=== PATIENT | male | born 1960 | race Two or more races ===

== ENCOUNTER 2017-04-04 20:20 | Inpatient (IN) | payer OTHER ==
[~2017-04-04] VITALS: Ht 167.6 cm; Wt 75.3 kg
[2017-04-04] MEDS ORDERED: MORPHINE SULFATE INJ 4 MG/ML DISP.SYRIN ONE (20:39)
[2017-04-04] MEDS ORDERED: ONDANSETRON HCL/PF 4 MG/2 ML VIAL ONE (20:39)
[2017-04-04] MEDS ORDERED: CLONIDINE HCL 0.1 MG TABLET ONE (20:39)
[2017-04-04 20:57] LABS: CALCIUM, SERUM 6.2 mg/dL (8.5-10.1); CREATININE 1.6 mg/dL (0.6-1.3); POTASSIUM 4.3 mmol/L (3.5-5.1)
[2017-04-04] MEDS ORDERED: CLONIDINE HCL 0.1 MG TABLET PO ONE (21:00)
[2017-04-04] MEDS ORDERED: MORPHINE SULFATE INJ 2 MG/ML DISP.SYRIN IV ONE (21:00)
[2017-04-04] MEDS ORDERED: ONDANSETRON HCL/PF 4 MG/2 ML VIAL IVP ONE (21:00)
[2017-04-04 21:02] LABS: HEMATOCRIT 41 % (39-51); HEMOGLOBIN 12.7 g/dL (13.5-17.5); INR 0.96 (0.87-1.13); MEAN CORPUSCULAR HEMOGLOBIN 25 PG (26.0-33.0); MEAN CORPUSCULAR HGB CONC 31 g/dl (31.0-36.0); MEAN CORPUSCULAR VOLUME 79 fL (80-96); PLATELET COUNT (AUTO) 384 /CMM (150-450); RDW COEFFICIENT OF VARIATION 13.7 (11.5-15.0); RED BLOOD CELL COUNT(AUTO) 5.15 MIL/uL (4.5-6.0); WHITE BLOOD COUNT (AUTO) 7.9 K/uL (4.3-11.0)
[2017-04-04 21:06] LABS: TROPONIN I 0.017 ng/mL (0.00-0.056)
[2017-04-04 21:25] LABS: BAND % (MANUAL) 2 % (0.0-5.0); EOSINOPHILS % (MANUAL) 5 % (0-4); LYMPHOCYTES % (MANUAL) 27 % (16-48); MONOCYTES % (MANUAL) 5 % (0-11.0); NEUTROPHILS % (MANUAL) 61 (42-76)
[2017-04-04] MEDS ORDERED: METOCLOPRAMIDE HCL 10 MG/2 ML VIAL ONE (21:46)
[2017-04-04] MEDS ORDERED: hydrALAZINE HCL IV 20 MG VIAL ONE (21:46)
[2017-04-04] MEDS ORDERED: IV NS 0.9% 1,000 ML ONE (21:47)
[2017-04-04] MEDS ORDERED: diphenhydrAMINE HCL 50 MG/ML VIAL ONE (21:47)
[2017-04-04] MEDS ORDERED: ASPIRIN 325 MG TABLET ONE (21:53)
[2017-04-04] MEDS ORDERED: diphenhydrAMINE HCL 50 MG/ML VIAL IV ONE (22:00)
[2017-04-04] MEDS ORDERED: METOCLOPRAMIDE HCL 10 MG/2 ML VIAL IV ONE (22:00)
[2017-04-04] MEDS ORDERED: IV NS 0.9% 1,000 ML BAG IV ONE (22:00)
[2017-04-04] MEDS ORDERED: ASPIRIN 325 MG TABLET PO ONE (22:00)
[2017-04-04] MEDS ORDERED: hydrALAZINE HCL IV 20 MG VIAL IV ONE (22:00)
[2017-04-04] MEDS ORDERED: INSU100I4 SQ (22:39)
[2017-04-04] MEDS ORDERED: ESOM20CA PO (22:39)
[2017-04-04 22:45] VITALS: BP 164/95
[2017-04-04] MEDS ORDERED: IV SET PRIMARY PUMP SET 1 EA INFUS.SET MC ONE (22:53)
[2017-04-05] VITALS (7 sets, daily range): BP systolic 145–189; BP diastolic 70–108
[2017-04-05] MEDS ORDERED: IV NS 0.9% 1,000 ML IV PRN
[2017-04-05] MEDS ORDERED: Z GUARD REMEDY 2 OZ OINT TP PRN
[2017-04-05] MEDS ORDERED: ZOLPIDEM TARTRATE 5 MG TABLET PO PRN
[2017-04-05] MEDS ORDERED: ONDANSETRON HCL/PF 4 MG/2 ML VIAL IVP PRN
[2017-04-05] MEDS ORDERED: *INSULIN REGULAR(HUMULIN R)HUM 100 UNIT/ML VIAL SQ PRN
[2017-04-05] MEDS ORDERED: MAG HYDROX/AL HYDROX/SIMETH 30 ML UDC PO PRN
[2017-04-05] MEDS ORDERED: ACETAMINOPHEN 325 MG TABLET PO PRN
[2017-04-05] MEDS ORDERED: MAGNESIUM HYDROXIDE 30 ML UDC PO PRN
[2017-04-05] MEDS ORDERED: HYDROCODONE/APAP 5/325MG 1 EACH TABLET ONE (00:27)
[2017-04-05 00:31] LABS: CALCIUM, SERUM 7.9 mg/dL (8.5-10.1); CREATININE 2.1 mg/dL (0.6-1.3); POTASSIUM 4.5 mmol/L (3.5-5.1)
[2017-04-05] MEDS: HYDROCODONE/APAP 5/325MG 1 EACH TABLET PO PRN (00:35)
[2017-04-05 00:36] LABS: ALBUMIN 1.8 g/dL (3.4-5.0); BILIRUBIN,TOTAL 0.2 mg/dL (0.2-1.0)
[2017-04-05 00:37] LABS: THYROID STIMULATING HORMONE 8.408 uIU/mL (0.358-3.74)
[2017-04-05] MEDS: INSULIN REGULAR, HUMAN 100 UNIT/ML 3 ML VIAL SQ PRN ×2 (06:29→11:08)
[2017-04-05] MEDS: BLOOD SUGAR DIAGNOSTIC 1 EACH STRIP VI SCH ×5 (06:30→22:01)
[2017-04-05 06:43] LABS: APPEARANCE,URINE CLEAR (CLEAR); BILIRUBIN,URINE NEGATIVE (NEGATIVE); BLOOD, URINE 1+ Ery/uL (NEGATIVE); COLOR,URINE YELLOW (YELLOW); KETONES,URINE NEGATIVE (NEGATIVE); LEUKOCYTE ESTERASE ,URINE NEGATIVE (NEGATIVE); NITRITE, URINE NEGATIVE (NEGATIVE); PROTEIN,URINE 3+ mg/dl (NEGATIVE); UGLUCOSE 3+ mg/dL (NEGATIVE); UROBILINOGEN,URINE 0.2 EU/dL (0.2)
[2017-04-05 06:45] LABS: BASOPHILS # (AUTO) 0.1 /CMM (0.0-0.2); BASOPHILS % (AUTO) 0.5 % (0.0-2.0); EOSINOPHILS # (AUTO) 0.5 /CMM (0.0-0.7); EOSINOPHILS % (AUTO) 5.2 % (0.0-6.0); HEMATOCRIT 38 % (39-51); HEMOGLOBIN 12.4 g/dL (13.5-17.5); LYMPHOCYTES # (AUTO) 1.7 /CMM (0.8-4.8); LYMPHOCYTES % (AUTO) 16.6 % (20.0-44.0); MEAN CORPUSCULAR HEMOGLOBIN 26 PG (26.0-33.0); MEAN CORPUSCULAR HGB CONC 33 g/dl (31.0-36.0); MEAN CORPUSCULAR VOLUME 79 fL (80-96); MONOCYTES # (AUTO) 0.8 /CMM (0.1-1.30); MONOCYTES % (AUTO) 7.6 % (2.0-12.0); NEUTROPHILS # (AUTO) 7.2 /CMM (1.8-8.9); NEUTROPHILS % (AUTO) 70.1 % (43.0-81.0); PLATELET COUNT (AUTO) 353 /CMM (150-450); RDW COEFFICIENT OF VARIATION 14.2 (11.5-15.0); RED BLOOD CELL COUNT(AUTO) 4.73 MIL/uL (4.5-6.0); WHITE BLOOD COUNT (AUTO) 10.3 K/uL (4.3-11.0)
[2017-04-05 06:55] LABS: CALCIUM, SERUM 7.8 mg/dL (8.5-10.1); CREATININE 2.2 mg/dL (0.6-1.3); MAGNESIUM 1.3 mg/dL (1.8-2.4); POTASSIUM 4.5 mmol/L (3.5-5.1)
[2017-04-05 07:25] LABS: CLINITEST,URINE 1%
[2017-04-05 07:26] LABS: BACTERIA,URINE None seen /HPF (None Seen); SQUAMOUS EPITHELIAL CELL,UR Few /HPF (None Seen); WBC,URINE 0-2 /HPF (0-3)
[2017-04-05] MEDS: PANTOPRAZOLE 40 MG TABLET.DR PO SCH (08:42)
[2017-04-05] MEDS: ASPIRIN EC 325 MG TABLET.DR PO SCH (08:42)
[2017-04-05] MEDS: HEPARIN SODIUM, PORCINE 5000 UNITS/1 ML VIAL SQ SCH ×2 (08:43→20:29)
[2017-04-05] MEDS: Magnesium 1GM/D5W 100ML PREMIX 100 ML IV SCH ×2 (10:38→12:21)
[2017-04-05] MEDS ORDERED: CLONIDINE HCL 0.1 MG TABLET PO PRN (11:30)
[2017-04-05] MEDS ORDERED: DEXTROSE 50%-WATER 50 ML DISP.SYRIN IV PRN ×2 (12:00)
[2017-04-05] MEDS: AMLODIPINE BESYLATE 10 MG TABLET PO SCH (12:22)
[2017-04-05] MEDS: *INSULIN REGULAR(HUMULIN R)HUM 100 UNIT/ML VIAL SQ PRN ×2 (17:54→21:53)
[2017-04-05] MEDS: ATORVASTATIN 40 MG TABLET PO SCH (21:51)
[2017-04-05] MEDS: INSULIN DETEMIR 100 UNIT/ML CARTRIDGE SQ SCH (21:55)
[2017-04-05] MEDS ORDERED: ATORVASTATIN 10 MG TABLET PO SCH (22:00)
[2017-04-06] VITALS: BP 168/95
[2017-04-06 04:00] VITALS: BP 128/69
[2017-04-06] MEDS: BLOOD SUGAR DIAGNOSTIC 1 EACH STRIP VI SCH ×4 (06:32→22:19)
[2017-04-06 08:00] VITALS: BP 159/89
[2017-04-06] MEDS: AMLODIPINE BESYLATE 10 MG TABLET PO SCH (09:17)
[2017-04-06] MEDS: PANTOPRAZOLE 40 MG TABLET.DR PO SCH (09:17)
[2017-04-06] MEDS: HYDROCODONE/APAP 5/325MG 1 EACH TABLET PO PRN (09:17)
[2017-04-06] MEDS: ASPIRIN EC 325 MG TABLET.DR PO SCH (09:18)
[2017-04-06] MEDS: HEPARIN SODIUM, PORCINE 5000 UNITS/1 ML VIAL SQ SCH ×2 (09:19→21:12)
[2017-04-06] MEDS ORDERED: LEVETIRACETAM (500MG) 1,000 MG in IV NS 0.9% 100 ML IV STA (09:22)
[2017-04-06] MEDS ORDERED: SECONDARY IV SET 1 EA INFUS.SET MC ONE (10:14)
[2017-04-06 10:54] LABS: BASOPHILS # (AUTO) 0.1 /CMM (0.0-0.2); BASOPHILS % (AUTO) 0.9 % (0.0-2.0); EOSINOPHILS # (AUTO) 0.4 /CMM (0.0-0.7); EOSINOPHILS % (AUTO) 5.2 % (0.0-6.0); HEMATOCRIT 40 % (39-51); HEMOGLOBIN 13.3 g/dL (13.5-17.5); LYMPHOCYTES # (AUTO) 1.6 /CMM (0.8-4.8); LYMPHOCYTES % (AUTO) 18.5 % (20.0-44.0); MEAN CORPUSCULAR HEMOGLOBIN 26 PG (26.0-33.0); MEAN CORPUSCULAR HGB CONC 33 g/dl (31.0-36.0); MEAN CORPUSCULAR VOLUME 79 fL (80-96); MONOCYTES # (AUTO) 0.6 /CMM (0.1-1.30); MONOCYTES % (AUTO) 6.6 % (2.0-12.0); NEUTROPHILS # (AUTO) 5.9 /CMM (1.8-8.9); NEUTROPHILS % (AUTO) 68.8 % (43.0-81.0); PLATELET COUNT (AUTO) 372 /CMM (150-450); RDW COEFFICIENT OF VARIATION 14.4 (11.5-15.0); RED BLOOD CELL COUNT(AUTO) 5.06 MIL/uL (4.5-6.0); WHITE BLOOD COUNT (AUTO) 8.6 K/uL (4.3-11.0)
[2017-04-06] MEDS: LEVETIRACETAM (250 MG) 250 MG TABLET PO SCH ×2 (11:00→21:11)
[2017-04-06 11:01] LABS: CALCIUM, SERUM 8.2 mg/dL (8.5-10.1); CREATININE 2.1 mg/dL (0.6-1.3); POTASSIUM 4.2 mmol/L (3.5-5.1)
[2017-04-06 12:00] VITALS: BP 145/91
[2017-04-06] MEDS: METOPROLOL TARTRATE 25 MG TABLET PO SCH ×2 (12:14→21:11)
[2017-04-06] MEDS: INSULIN REGULAR, HUMAN 100 UNIT/ML 3 ML VIAL SQ PRN ×2 (12:20→17:52)
[2017-04-06 16:00] VITALS: BP 130/82
[2017-04-06 20:00] VITALS: BP 152/86
[2017-04-06] MEDS: ATORVASTATIN 40 MG TABLET PO SCH (21:12)
[2017-04-06] MEDS: INSULIN DETEMIR 100 UNIT/ML CARTRIDGE SQ SCH (22:15)
[2017-04-06] MEDS: *INSULIN REGULAR(HUMULIN R)HUM 100 UNIT/ML VIAL SQ PRN (22:16)
[2017-04-07] VITALS: BP 139/77
[2017-04-07 04:00] VITALS: BP 138/83
[2017-04-07] MEDS: BLOOD SUGAR DIAGNOSTIC 1 EACH STRIP VI SCH (06:22)
[2017-04-07 07:28] LABS: BASOPHILS # (AUTO) 0.1 /CMM (0.0-0.2); BASOPHILS % (AUTO) 0.6 % (0.0-2.0); EOSINOPHILS # (AUTO) 0.5 /CMM (0.0-0.7); EOSINOPHILS % (AUTO) 5.8 % (0.0-6.0); HEMATOCRIT 41 % (39-51); HEMOGLOBIN 13.8 g/dL (13.5-17.5); LYMPHOCYTES # (AUTO) 2.1 /CMM (0.8-4.8); LYMPHOCYTES % (AUTO) 24.2 % (20.0-44.0); MEAN CORPUSCULAR HEMOGLOBIN 27 PG (26.0-33.0); MEAN CORPUSCULAR HGB CONC 34 g/dl (31.0-36.0); MEAN CORPUSCULAR VOLUME 79 fL (80-96); MONOCYTES # (AUTO) 0.6 /CMM (0.1-1.30); MONOCYTES % (AUTO) 6.8 % (2.0-12.0); NEUTROPHILS # (AUTO) 5.4 /CMM (1.8-8.9); NEUTROPHILS % (AUTO) 62.6 % (43.0-81.0); PLATELET COUNT (AUTO) 413 /CMM (150-450); RDW COEFFICIENT OF VARIATION 14.5 (11.5-15.0); RED BLOOD CELL COUNT(AUTO) 5.19 MIL/uL (4.5-6.0); WHITE BLOOD COUNT (AUTO) 8.7 K/uL (4.3-11.0)
[2017-04-07 07:46] LABS: CALCIUM, SERUM 8.3 mg/dL (8.5-10.1); POTASSIUM 4.1 mmol/L (3.5-5.1)
[2017-04-07 08:00] VITALS: BP 119/80
[2017-04-07] MEDS: LEVETIRACETAM (250 MG) 250 MG TABLET PO SCH (08:01)
[2017-04-07] MEDS: ASPIRIN EC 325 MG TABLET.DR PO SCH (08:01)
[2017-04-07] MEDS: PANTOPRAZOLE 40 MG TABLET.DR PO SCH (08:01)
[2017-04-07] MEDS: AMLODIPINE BESYLATE 10 MG TABLET PO SCH (08:01)
[2017-04-07 08:02] VITALS: BP 119/80
[2017-04-07] MEDS: METOPROLOL TARTRATE 25 MG TABLET PO SCH (08:02)
[2017-04-07] MEDS: HEPARIN SODIUM, PORCINE 5000 UNITS/1 ML VIAL SQ SCH (08:10)
== END 2017-04-07 10:53 | disposition home or self-care (01) | DRG 64 ==
LOC: ER 20:23 → TELE1 22:40
PROVIDERS: ADMIT Nurse Practitioner Acute Care; ATTEND Nurse Practitioner Acute Care
DX: I63.9 Cerebral infarction, unspecified (principal); N17.0 Acute kidney failure with tubular necrosis; I50.33 Acute on chronic diastolic (congestive) heart failure; G45.9 Transient cerebral ischemic attack, unspecified; I13.0 Hypertensive heart and chronic kidney disease with heart failure and stage 1 through stage 4 chronic kidney disease, or unspecified chronic kidney disease; N18.9 Chronic kidney disease, unspecified; E11.22 Type 2 diabetes mellitus with diabetic chronic kidney disease; E11.65 Type 2 diabetes mellitus with hyperglycemia; E78.5 Hyperlipidemia, unspecified; I25.10 Atherosclerotic heart disease of native coronary artery without angina pectoris; Z91.14 Patient's other noncompliance with medication regimen; Z98.61 Coronary angioplasty status; R56.9 Unspecified convulsions; I51.3 Intracardiac thrombosis, not elsewhere classified; R47.02 Dysphasia; Z79.4 Long term (current) use of insulin
CPT/HCPCS: 36415; 70450-TC; 71010-TC; 80048-TC; 80053-TC; 80061-TC; 80305; 81000-TC; 82962-TC; 83735-TC; 83880; 84100-TC; 84443-TC; 84484-TC; 85025-TC; 85652-TC; 85730-TC; 92507-TC; 92521; 93307-TC; 93880-TC; 95819-TC; 97001-TC; 97116-TC; 97530-TC; A4606; J0360; J1200; J1644; J1815; J1953; J2270; J2405; J2765; J3475; J7030; Z7610

== ENCOUNTER 2017-07-21 12:19 | Inpatient (IN) | payer SELFPAY ==
[~2017-07-21] VITALS: Ht 172.7 cm; Wt 61.7 kg
[~2017-07-21 12:19] MED LIST: ESOM20CA PO; INSU100I4 SQ
--- NOTE | 2017-07-21 12:25 | NUR ---
Ariel shoemaker in EDM - 07/21/17 at 1242 by GIGI PT REC'D TO ER C/O FALL LEFT SHOULDER PAIN 08/21 IV STARTED 20G IVP LABS SENT TO LAB MONSE GUIDRY AND MS 4MG IVP NOW MARIANA MADRIGAL
[2017-07-21] MEDS ORDERED: IV NS 0.9% 1,000 ML BAG IV ONE (12:30)
--- NOTE | 2017-07-21 12:37 | NUR ---
CODE STEMI ACTIVATED BY DR. DE LA O
--- NOTE | 2017-07-21 12:37 | NUR ---
[facility] CALLED TO INITIATE CODE STEMI TRANSFER
--- NOTE | 2017-07-21 12:38 | NUR ---
PT CEVIAL COLLAR APPLIED CNAT REMEMBER WHAT HAPPENED IV LEFT AC 18G IVP NS GIVEN PER MD NO C/O CHEST PAIN.
[2017-07-21 12:40] LABS: BASOPHILS # (AUTO) 0.3 /CMM (0.0-0.2); BASOPHILS % (AUTO) 3.9 % (0.0-2.0); EOSINOPHILS # (AUTO) 0.1 /CMM (0.0-0.7); EOSINOPHILS % (AUTO) 1.4 % (0.0-6.0); HEMATOCRIT 37 % (39-51); HEMOGLOBIN 12.1 g/dL (13.5-17.5); LYMPHOCYTES # (AUTO) 2.2 /CMM (0.8-4.8); LYMPHOCYTES % (AUTO) 25.2 % (20.0-44.0); MEAN CORPUSCULAR HEMOGLOBIN 26 PG (26.0-33.0); MEAN CORPUSCULAR HGB CONC 32 g/dl (31.0-36.0); MEAN CORPUSCULAR VOLUME 80 fL (80-96); MONOCYTES # (AUTO) 0.5 /CMM (0.1-1.30); MONOCYTES % (AUTO) 6.3 % (2.0-12.0); NEUTROPHILS # (AUTO) 5.6 /CMM (1.8-8.9); NEUTROPHILS % (AUTO) 63.2 % (43.0-81.0); PLATELET COUNT (AUTO) 530 /CMM (150-450); RDW COEFFICIENT OF VARIATION 13.7 (11.5-15.0); RED BLOOD CELL COUNT(AUTO) 4.67 MIL/uL (4.5-6.0); WHITE BLOOD COUNT (AUTO) 8.7 K/uL (4.3-11.0)
--- NOTE | 2017-07-21 12:43 | NUR ---
PT POS FOR STEM BOWIE XRAY DONE AWAITING EVALUATION BY ER PROVIDER.
[2017-07-21 12:48] LABS: CALCIUM, SERUM 8.1 mg/dL (8.5-10.1); CREATININE 2.5 mg/dL (0.6-1.3); POTASSIUM 3.7 mmol/L (3.5-5.1)
[2017-07-21 12:53] LABS: BILIRUBIN,TOTAL 0.2 mg/dL (0.2-1.0)
[2017-07-21 12:55] LABS: TROPONIN I 0.025 ng/mL (0.00-0.056)
--- NOTE | 2017-07-21 12:55 | NUR ---
PT SENT TO CT WITH RN
--- NOTE | 2017-07-21 12:56 | NUR ---
PT DECLINED FOR CATH BY DR. DAMON, DOES NOT REQUIRE EMERGENT TRANSFER FOR CATH AT THIS TIME
--- NOTE | 2017-07-21 12:56 | NUR ---
CALLED [facility], DR DAMON WAS PAGED.
[2017-07-21 12:57] LABS: INR 0.95 (0.87-1.13); PROTHROMBIN TIME 9.9 SECS (9.5-12.7)
[2017-07-21] MEDS ORDERED: ASPIRIN 325 MG TABLET ONE (12:59)
[2017-07-21] MEDS ORDERED: ASPIRIN 325 MG TABLET PO ONE (13:00)
--- NOTE | 2017-07-21 13:10 | NUR ---
PT BACK TO ROOM FAMMILY AT BEDSIDE PT DENIES PAIN ASA 325 MG PO GIVEN NOW
[2017-07-21] MEDS ORDERED: LOSA50TA21 PO (13:25)
[2017-07-21] MEDS ORDERED: ASPI325T2 PO (13:25)
[2017-07-21] MEDS ORDERED: LEVE250T2 PO (13:25)
[2017-07-21] MEDS ORDERED: INSU3INS6 SQ (13:25)
[2017-07-21] MEDS ORDERED: LEVETIRACETAM (500MG) 1,000 MG in IV NS 0.9% 100 ML IV ONE (13:30)
--- NOTE | 2017-07-21 14:44 | NUR ---
PT SLEEEPING RESP EVEN UNLABORED AWAITING EVALUATION BY ER PROVIDER.
--- NOTE | 2017-07-21 14:57 | NUR ---
PT GIVEN KEPPA IV PER MD ORDER VSS
[2017-07-21] MEDS ORDERED: ACETAMINOPHEN 325 MG TABLET PO PRN (15:00)
[2017-07-21] MEDS ORDERED: MAGNESIUM HYDROXIDE 30 ML UDC PO PRN (15:00)
[2017-07-21] MEDS ORDERED: MAG HYDROX/AL HYDROX/SIMETH 30 ML UDC PO PRN (15:00)
[2017-07-21] MEDS ORDERED: HYDROCODONE/APAP 5/325MG 1 EACH TABLET PO PRN (15:00)
[2017-07-21] MEDS ORDERED: ONDANSETRON HCL/PF 4 MG/2 ML VIAL IVP PRN (15:00)
[2017-07-21] MEDS ORDERED: Z GUARD REMEDY 2 OZ OINT TP PRN (15:00)
[2017-07-21] MEDS ORDERED: DEXTROSE 50%-WATER 50 ML DISP.SYRIN IV PRN (15:00)
[2017-07-21] MEDS ORDERED: ZOLPIDEM TARTRATE 5 MG TABLET PO PRN (15:00)
[2017-07-21] MEDS ORDERED: ENOXAPARIN SODIUM 30 MG/0.3 ML DISP.SYRIN SQ SCH (15:30)
--- NOTE | 2017-07-21 15:36 | NUR ---
PT STABLE FOR TRANSFER
--- NOTE | 2017-07-21 15:53 | NUR ---
MANAGER RESORT OPENING NOTES RECEIVED PT FROM ER NURSE IN STABLE CONDITION. PT IS A/O X3. FLAT AFFECT NOTED. NO SOB OR SIGNS OF DISTRESS NOTED. BREATHING IS EVEN AND UNLABORED. PT IS ON RA AND SATING WELL @ 100%. VITAL SIGNS WNL AND ARE FOLLOWED: BP 117/79, HR 74, RESP 18. TEMP 98.4. PT IS SINUS RHYTHM ON THE TELE MONITOR. PT DENIES ANY PAIN, DIZZINESS, OR N/V AT THIS TIME. IV PRESENT ON LEFT AC 18G INFUSING NS @75ML/HR. PT IS TOLERATING INFUSION. WELL. IV IS DRY, PATENT, AND INTACT. NO REDNESS OR SIGNS OF INFILTRATION NOTED. PT STATED THAT HE HAD A FALL AT HOME BUT DOES NOT REMEMBER WHAT HAPPENED PRIOR OR AFTER. PT ARRIVED WITH NO BELONGINGS. BELONGINGS FORM SIGNED AND PLACED IN THE CHART. PT WAS ORIENTED TO THE ROOM AND VERBALIZED UNDERSTANDING. BED IN LOW LOCKED POSITION, SIDE RAILS UP X2, CALL LIGHT WITHIN REACH. WILL CONTINUE ADMISSION PROCESS AND MONITOR.
[2017-07-21] MEDS: IV NS 0.9% 1,000 ML IV PRN (16:31)
[2017-07-21] MEDS: BLOOD SUGAR DIAGNOSTIC 1 EACH STRIP VI SCH ×2 (16:38→21:57)
[2017-07-21] MEDS: ATORVASTATIN 40 MG TABLET PO SCH (17:42)
[2017-07-21] MEDS: INSULIN REGULAR, HUMAN 100 UNIT/ML 3 ML VIAL SQ PRN (17:43)
[2017-07-21 17:51] VITALS: BP 117/79
--- NOTE | 2017-07-21 18:29 | NUR ---
CARDIOTHORACIC SURGEON NOTES DR CASTILLO CALLED AND GAVE A TELEPHONE ORDER FOR ELIQUIS 2.5 MG TO BE GIVEN NOW AND ANOTHER DOSE @ MIDNIGHT. WAS MADE AWARE THAT I GAVE LOVENOX 30MG A FEW HRS AGO AND ORDERED THAT I D/C THE LOVENOX AND PROCEED WITH ELIQUIS.
--- NOTE | 2017-07-21 18:43 | NUR ---
SUPERVISOR ORNAMENTAL IRONWORKING NOTES PHARMACY CALLED IN REGARDS TO ELIQUIS ORDER AND STATED THAT THEY CAN NOT VERIFY IT BECAUSE OF THE PT'S KIDNEY FUNCTION. DR. CASTILLO WAS MADE AWARE AND STATED THAT HE WILL CALL THE PHARMACY AND SORT IT OUT.
--- NOTE | 2017-07-21 18:55 | NUR ---
CHILDHOOD TEACHER CLOSING NOTES PT. REMAINS IN STABLE CONDITION SINCE TIME OR ADMISSION. ALL NEEDS WERE MET FOR AND ORDERS CARRIED OUT ACCORDINGLY. WILL ENDORSE TO NIGHTSHIFT NURSE FOR MARGOT
[2017-07-21] MEDS: APIXABAN 2.5 MG TABLET PO SCH (19:01)
--- NOTE | 2017-07-21 19:30 | NUR ---
DAIRY INSPECTOR NOTES RECEIVED ON BED A/O X 3-4,BREATHING REGULAR,NOT IN ANY FORM OF DISTRESS.VISITOR AT SITTING ON BEDSIDE CHAIR .PRESENT IVF INFUSING WELL VIA IV PUMP ON THE RIGHT AC,NO REDNESS ON SITE. DENIES DIZZINESS AT THE MOMENT.SR-71 ON THE MONITOR.DENIES CHEST PAIN.ON ELIQUIS PO FOR DVT PROPHYLAXIS. WILL CONTINUE TO MONITOR STATUS.CALL LIGHT IN REACH,NEEDS ANTICIPATED.
[2017-07-21 20:00] VITALS: BP 140/76
--- NOTE | 2017-07-21 22:00 | NUR ---
SECURITY SERVICES MANAGER NOTES DUE PO MEDS GIVEN,TAKEN WELL
--- NOTE | 2017-07-21 22:00 | NUR ---
CARTOON DESIGNER NOTES ACCU-CHECK BLOOD SUGAR CHECK 242,COVERTED WITH HUMULIN R 4 UNITS PER SLIDING SCALE.
[2017-07-21] MEDS: *INSULIN REGULAR(HUMULIN R)HUM 100 UNIT/ML VIAL SQ PRN (22:02)
[2017-07-21] MEDS: LOSARTAN POTASSIUM 50 MG TABLET PO SCH (22:06)
[2017-07-21] MEDS: LEVETIRACETAM (250 MG) 250 MG TABLET PO SCH (22:06)
[2017-07-22] VITALS: BP_SYST 134; BP_SYST 138; BP_DIAS 74
--- NOTE | 2017-07-22 02:30 | NUR ---
EXECUTIVE ADMINISTRATOR NOTES AWAKE,WATCHING TV PROGRAM.DENIES CHEST DISCOMFORTS.
[2017-07-22 04:30] VITALS: BP 161/87
[2017-07-22] MEDS: BLOOD SUGAR DIAGNOSTIC 1 EACH STRIP VI SCH ×4 (05:30→23:21)
--- NOTE | 2017-07-22 05:30 | NUR ---
HUNTER GUIDE NOTES ACCU-CHECK BLOOD SUGAR CHECK 108,NO INSULIN COVERAGE.
[2017-07-22] MEDS: IV NS 0.9% 1,000 ML IV PRN (05:38)
[2017-07-22 06:27] LABS: BASOPHILS % (AUTO) 0.6 % (0.0-2.0); EOSINOPHILS # (AUTO) 0.2 /CMM (0.0-0.7); EOSINOPHILS % (AUTO) 2.1 % (0.0-6.0); HEMATOCRIT 33 % (39-51); HEMOGLOBIN 10.8 g/dL (13.5-17.5); LYMPHOCYTES % (AUTO) 27.3 % (20.0-44.0); MEAN CORPUSCULAR HEMOGLOBIN 27 PG (26.0-33.0); MEAN CORPUSCULAR HGB CONC 33 g/dl (31.0-36.0); MEAN CORPUSCULAR VOLUME 82 fL (80-96); MONOCYTES # (AUTO) 0.5 /CMM (0.1-1.30); MONOCYTES % (AUTO) 7.2 % (2.0-12.0); NEUTROPHILS # (AUTO) 4.5 /CMM (1.8-8.9); NEUTROPHILS % (AUTO) 62.8 % (43.0-81.0); PLATELET COUNT (AUTO) 388 /CMM (150-450); RDW COEFFICIENT OF VARIATION 14.7 (11.5-15.0); RED BLOOD CELL COUNT(AUTO) 3.98 MIL/uL (4.5-6.0); WHITE BLOOD COUNT (AUTO) 7.2 K/uL (4.3-11.0)
--- NOTE | 2017-07-22 06:43 | NUR ---
FUR SEWER NOTES FAIRLY RESTED AT NIGHT.DENIES CHEST PAIN DISCOMFORTS.MED COMPLIANT.IVF FLUID IN PROGRESS.ABLE TO VERBALIZED NEEDS.IN NO ACUTE DISTRESS.ECHO WITH 55-60 %EF.CALL LIGHT IN REACH,NEEDS ATTENDED
[2017-07-22 06:53] LABS: CALCIUM, SERUM 7.5 mg/dL (8.5-10.1); CREATININE 1.9 mg/dL (0.6-1.3); MAGNESIUM 1.6 mg/dL (1.8-2.4); PHOSPHORUS 3.6 mg/dL (2.5-4.9); POTASSIUM 3.5 mmol/L (3.5-5.1)
--- NOTE | 2017-07-22 07:15 | NUR ---
RN NOTES PT IS IN BED, RESTING COMFORTABLY. PT ON RA, NO SOB OR SIGNS OF DISTRESS. IV ON LAC INTACT AND PATENT, RUNNING NS AT 75 ML/HR. SAFETY MEASURES ARE IN PLACE, CALL LIGHT IS IN REACH. WILL CONTINUE TO MONITOR.
[2017-07-22 08:00] VITALS: BP_SYST 142; BP_SYST 162; BP_DIAS 79; BP_DIAS 88
[2017-07-22] MEDS: ASPIRIN 325 MG TABLET PO SCH (08:04)
[2017-07-22] MEDS: APIXABAN 2.5 MG TABLET PO SCH ×2 (08:04→18:12)
[2017-07-22] MEDS: ATORVASTATIN 40 MG TABLET PO SCH (08:04)
[2017-07-22] MEDS: PANTOPRAZOLE 40 MG TABLET.DR PO SCH (08:04)
[2017-07-22] MEDS: Magnesium 1GM/D5W 100ML PREMIX 100 ML IV SCH ×2 (08:04→09:36)
[2017-07-22] MEDS: INSULIN REGULAR, HUMAN 100 UNIT/ML 3 ML VIAL SQ PRN ×2 (11:12→17:15)
[2017-07-22 13:26] LABS: APPEARANCE,URINE CLEAR (CLEAR); BILIRUBIN,URINE NEGATIVE (NEGATIVE); BLOOD, URINE TRACE-INTA Ery/uL (NEGATIVE); COLOR,URINE YELLOW (YELLOW); KETONES,URINE NEGATIVE (NEGATIVE); LEUKOCYTE ESTERASE ,URINE NEGATIVE (NEGATIVE); NITRITE, URINE NEGATIVE (NEGATIVE); PROTEIN,URINE 3+ mg/dl (NEGATIVE); UGLUCOSE 1+ mg/dL (NEGATIVE); UROBILINOGEN,URINE 0.2 EU/dL (0.2)
[2017-07-22 13:35] LABS: BACTERIA,URINE Rare /HPF (None Seen); SQUAMOUS EPITHELIAL CELL,UR Rare /HPF (None Seen); WBC,URINE 0-2 /HPF (0-3)
[2017-07-22 13:51] LABS: EOSINOPHIL,URINE None Seen
[2017-07-22 14:11] LABS: CREATININE, URINE 139.4 MG/DL (30.0-125.0); URINE TOTAL PROTEIN 1067.2 mg/dL (0-11.9)
[2017-07-22 16:00] VITALS: BP 145/84
--- NOTE | 2017-07-22 18:33 | NUR ---
RN NOTES PT IS IN BED, RESTING COMFORTABLY. PT ON RA, O2 SAT 99%, NO SOB. PT DENIES ANY PAIN AT THIS TIME. IV ON LAC INTACT AND PATENT, RUNNING NS @75 ML/HR. LAST ACCUCHECK WAS 156, 2 UNITS OF INSULIN GIVEN. ALL MEDICATIONS WERE GIVEN ORDERED. SAFETY MEASURES ARE IN PLACE, CALL LIGHT IS IN REACH. WILL ENDORSE TO AIRCRAFT MAINTENANCE ENGINEER RN FOR CONTINUITY OF CARE.
--- NOTE | 2017-07-22 19:45 | NUR ---
RN OPENING NOTES RECEIVED REPORT FROM BRY RN, . FOUND Pt AWAKE, RESTING IN BED WATCHING TV. NO S/S OF ACUTE DISTRESS OR SOB NOTED. Pt IS A/OX3, VERBAL, ABLE TO MAKE NEEDS KNOWN. IV ACCESS ON LAC#18G, IVF NS @75ML/HR INFUSING WELL. SAFETY MEASURES IN PLACE. BED LOW, LOCKED, HOB ELEVATED, SIDE RAILS UP, CALL LIGHT AND BEDSIDE TABLE WITHIN REACH. WILL CONTINUE TO MONITOR Pt THROUGHOUT THE NIGHT FOR SAFETY. .
[2017-07-22 20:00] VITALS: BP 165/59
[2017-07-22 22:00] VITALS: BP 165/59
--- NOTE | 2017-07-22 22:00 | NUR ---
HS ACCUCHECK BG 147. ADMINISTERED 2UN OF INSULIN PER SLIDING SCALE.
[2017-07-22] MEDS: LOSARTAN POTASSIUM 50 MG TABLET PO SCH (23:21)
[2017-07-22] MEDS: LEVETIRACETAM (250 MG) 250 MG TABLET PO SCH (23:21)
[2017-07-22] MEDS: *INSULIN REGULAR(HUMULIN R)HUM 100 UNIT/ML VIAL SQ PRN (23:27)
--- NOTE | 2017-07-23 06:30 | NUR ---
AC ACCUCHECK BG 128. NO INSULIN COVERAGE NEEDED AT THIS TIME.
[2017-07-23 06:37] LABS: BASOPHILS % (AUTO) 0.5 % (0.0-2.0); EOSINOPHILS # (AUTO) 0.3 /CMM (0.0-0.7); EOSINOPHILS % (AUTO) 3.5 % (0.0-6.0); HEMATOCRIT 33 % (39-51); HEMOGLOBIN 11.1 g/dL (13.5-17.5); LYMPHOCYTES # (AUTO) 1.8 /CMM (0.8-4.8); LYMPHOCYTES % (AUTO) 22.9 % (20.0-44.0); MEAN CORPUSCULAR HEMOGLOBIN 28 PG (26.0-33.0); MEAN CORPUSCULAR HGB CONC 34 g/dl (31.0-36.0); MEAN CORPUSCULAR VOLUME 82 fL (80-96); MONOCYTES # (AUTO) 0.5 /CMM (0.1-1.30); MONOCYTES % (AUTO) 5.9 % (2.0-12.0); NEUTROPHILS # (AUTO) 5.3 /CMM (1.8-8.9); NEUTROPHILS % (AUTO) 67.2 % (43.0-81.0); PLATELET COUNT (AUTO) 348 /CMM (150-450); RDW COEFFICIENT OF VARIATION 14.5 (11.5-15.0); WHITE BLOOD COUNT (AUTO) 7.9 K/uL (4.3-11.0)
--- NOTE | 2017-07-23 06:50 | NUR ---
RN CLOSING NOTES NO SIGNIFICANT CHANGES IN Pt's CONDITION. Pt REMAINS STABLE. NO S/S OF ACUTE DISTRESS OR SOB NOTED DURING THE NIGHT. ALL NEEDS MET AND ATTENDED TO. SAFETY MEASURES IN PLACE. WILL ENDORSE TO DAYSHIFT RN FOR Pt's MARGOT.
[2017-07-23 07:00] LABS: ALBUMIN 1.7 g/dL (3.4-5.0); BILIRUBIN,TOTAL 0.3 mg/dL (0.2-1.0); CALCIUM, SERUM 7.8 mg/dL (8.5-10.1); CREATININE 1.7 mg/dL (0.6-1.3); PHOSPHORUS 2.9 mg/dL (2.5-4.9); POTASSIUM 4.2 mmol/L (3.5-5.1); TOTAL PROTEIN, SERUM 5.3 g/dL (6.4-8.2)
[2017-07-23] MEDS: BLOOD SUGAR DIAGNOSTIC 1 EACH STRIP VI SCH ×2 (07:13→12:02)
--- NOTE | 2017-07-23 07:35 | NUR ---
RN OPENING NOTES RECEIVED PT. IN BED AWAKE, A&OX2. BREATHING ON ROOM AIR UNLABORED, AND NO SOB. NO S/S OF ACUTE DISTRESS. IV FLUIDS NEAR BEDSIDE. BED IS IN LOW POSITION, 2 SIDE RAILS UP, AND INSTRUCTED PT. TO USE CALL LIGHT FOR ASSISTANCE.
[2017-07-23 08:00] VITALS: BP 136/76
[2017-07-23] MEDS: ASPIRIN 325 MG TABLET PO SCH (09:08)
[2017-07-23] MEDS: APIXABAN 2.5 MG TABLET PO SCH (09:08)
[2017-07-23] MEDS: PANTOPRAZOLE 40 MG TABLET.DR PO SCH (09:08)
[2017-07-23] MEDS: ATORVASTATIN 40 MG TABLET PO SCH (09:08)
[2017-07-23] MEDS: IV NS 0.9% 1,000 ML IV PRN (09:09)
[2017-07-23] MEDS ORDERED: LEVETIRACETAM (250 MG) 250 MG TABLET PO SCH (10:00)
[2017-07-23] MEDS ORDERED: LEVE250T2 PO (10:06)
[2017-07-23] MEDS ORDERED: APIX2.5T PO (10:06)
[2017-07-23] MEDS: INSULIN REGULAR, HUMAN 100 UNIT/ML 3 ML VIAL SQ PRN (12:12)
--- NOTE | 2017-07-23 13:45 | NUR ---
DISCHARGE PT. WAS DISCHARGED HOME. PT. LEFT WITH IN MEDICALLY STABLE CONDITION. DISCHARGE EDUCATION, AND INTRUCTIONS WERE PROVIDED. PT. VERBALIZED UNDERSTANDING OF DISCHARGE INSTRUCTIONS, AND SIGNED PAPERS. BELONGINGS LIST WAS CHECKED AND SIGNED BY PT. IV AND ID BAND WAS [id number] WITHOUT COMPLICATIONS.
== END 2017-07-23 13:30 | disposition home or self-care (01) | DRG 100 ==
LOC: ER 12:20 → TELE 14:56 → MED 07-22 10:07
PROVIDERS: ADMIT Internal Medicine; ATTEND Internal Medicine
DX: G40.909 Epilepsy, unspecified, not intractable, without status epilepticus (principal); N17.0 Acute kidney failure with tubular necrosis; I50.33 Acute on chronic diastolic (congestive) heart failure; K31.84 Gastroparesis; E11.22 Type 2 diabetes mellitus with diabetic chronic kidney disease; E88.81 Metabolic syndrome and other insulin resistance; E11.43 Type 2 diabetes mellitus with diabetic autonomic (poly)neuropathy; I13.0 Hypertensive heart and chronic kidney disease with heart failure and stage 1 through stage 4 chronic kidney disease, or unspecified chronic kidney disease; N39.0 Urinary tract infection, site not specified; W18.2XXA Fall in (into) shower or empty bathtub, initial encounter; E83.42 Hypomagnesemia; Z86.73 Personal history of transient ischemic attack (TIA), and cerebral infarction without residual deficits; Z79.899 Other long term (current) drug therapy; Z79.82 Long term (current) use of aspirin; Z79.01 Long term (current) use of anticoagulants; Z87.440 Personal history of urinary (tract) infections; Z95.5 Presence of coronary angioplasty implant and graft; Z91.19 Patient's noncompliance with other medical treatment and regimen; Z79.4 Long term (current) use of insulin; I73.9 Peripheral vascular disease, unspecified; E78.5 Hyperlipidemia, unspecified; E83.51 Hypocalcemia; I48.0 Paroxysmal atrial fibrillation; I25.10 Atherosclerotic heart disease of native coronary artery without angina pectoris; N18.9 Chronic kidney disease, unspecified; R47.02 Dysphasia; Y93.E1 Activity, personal bathing and showering; Y92.002 Bathroom of unspecified non-institutional (private) residence as the place of occurrence of the external cause; Z89.431 Acquired absence of right foot
CPT/HCPCS: 36415; 70450-TC; 71010-TC; 80048-TC; 80053-TC; 80076-TC; 81000-TC; 82570-TC; 82962-TC; 83735-TC; 84100-TC; 84155-TC; 84300-TC; 84484-TC; 85025-TC; 85652-TC; 85730-TC; 87081-TC; 93307-TC; A4606; J1650; J1815; J1953; J3475; J7030; Z7610

== ENCOUNTER 2017-09-19 07:42 | Inpatient (IN) | payer MEDICAID ==
[~2017-09-19] VITALS: Ht 170.2 cm; Wt 61.2 kg
[~2017-09-19 07:42] MED LIST changes: +APIX2.5T PO; +ASPI325T2 PO; -ESOM20CA PO; +INSU3INS6 SQ; +LEVE250T2 PO; +LOSA50TA21 PO
--- NOTE | 2017-09-19 07:49 | NUR ---
BBRA 78 ALOC. AWAKE. NON VERBAL. FOLLOWS SOME BASIC COMMANDS. MOVES ALL EXT WEAK. LH 20G PIV PLACED. HYPERGLYCEMIC 400'S. SLIGHTLY JAUNDICED SCATTERED BRUISING PETECHIA? SBP 160'S. 98% O2 SATS RA. NON LABORED RESP. NO S/S PAIN. RESTING CALMLY.
[2017-09-19] MEDS ORDERED: FAMOTIDINE/PF INJ 20 MG/2 ML VIAL IV ONE ×2 (08:00→08:06)
[2017-09-19] MEDS ORDERED: ONDANSETRON HCL/PF 4 MG/2 ML VIAL IVP ONE (08:00)
[2017-09-19] MEDS ORDERED: INSULIN REGULAR, HUMAN 100 UNIT/ML 10 ML VIAL IV ONE (08:00)
[2017-09-19] MEDS ORDERED: IV NS 0.9% 1,000 ML BAG IV ONE (08:00)
[2017-09-19] MEDS ORDERED: ONDANSETRON HCL/PF 4 MG/2 ML VIAL ONE (08:05)
[2017-09-19 08:07] LABS: BASOPHILS % (AUTO) 0.1 % (0.0-2.0); HEMATOCRIT 42 % (39-51); LYMPHOCYTES # (AUTO) 0.9 /CMM (0.8-4.8); LYMPHOCYTES % (AUTO) 6.9 % (20.0-44.0); MEAN CORPUSCULAR HEMOGLOBIN 27 PG (26.0-33.0); MEAN CORPUSCULAR HGB CONC 33 g/dl (31.0-36.0); MEAN CORPUSCULAR VOLUME 81 fL (80-96); MONOCYTES # (AUTO) 0.1 /CMM (0.1-1.30); NEUTROPHILS # (AUTO) 12.5 /CMM (1.8-8.9); PLATELET COUNT (AUTO) 422 /CMM (150-450); RDW COEFFICIENT OF VARIATION 13.2 (11.5-15.0); RED BLOOD CELL COUNT(AUTO) 5.17 MIL/uL (4.5-6.0); WHITE BLOOD COUNT (AUTO) 13.6 K/uL (4.3-11.0)
[2017-09-19] MEDS ORDERED: INSULIN REGULAR, HUMAN 100 UNIT/ML 10 ML VIAL ONE (08:17)
[2017-09-19 08:19] LABS: SERUM AMMONIA < 10 umol/L (11-32)
[2017-09-19 08:23] LABS: ACETAMINOPHEN 0 ug/ml (10-30); ALANINE AMINOTRANSFERASE 15 U/L (12-78); ALBUMIN 2.2 g/dL (3.4-5.0); ALCOHOL, BLOOD < 3 mg/dL (0-0); ALKALINE PHOSPHATASE 143 U/L (46-116); ASPARTATE AMINOTRANSFERASE 12 U/L (15-37); BILIRUBIN,DIRECT 0.1 mg/dL (0.0-0.2); BILIRUBIN,TOTAL 0.3 mg/dL (0.2-1.0); CALCIUM, SERUM 9.1 mg/dL (8.5-10.1); CARBON DIOXIDE 25 mmol/L (21-32); CHLORIDE 103 mmol/L (98-107); POTASSIUM 4.3 mmol/L (3.5-5.1); SALICYLATE 1.3 mg/dL (2.8-20.0); SODIUM SERUM 139 mmol/L (136-145); TOTAL PROTEIN, SERUM 6.8 g/dL (6.4-8.2); UREA NITROGEN, BLOOD 37 mg/dL (7-18)
[2017-09-19 08:24] LABS: GLUCOSE 393 mg/dL (74-106); TROPONIN I < 0.017 ng/mL (0.00-0.056)
--- NOTE | 2017-09-19 08:24 | NUR ---
pt taken to ct
[2017-09-19 08:30] LABS: INR 0.9 (0.87-1.13); PROTHROMBIN TIME 9.4 SECS (9.5-12.7)
--- NOTE | 2017-09-19 08:46 | NUR ---
[facility] Neurology [facility] [phone]
--- NOTE | 2017-09-19 08:56 | NUR ---
URINE SAMPLE COLLECTED SENT TO LAB VIA STRAIGHT CATH IN AND OUT
--- NOTE | 2017-09-19 09:04 | NUR ---
[facility] PAGED DR LEÓN JUNIOR LINUX ADMINISTRATOR [phone].
[2017-09-19 09:18] LABS: APPEARANCE,URINE Turbid (CLEAR); BILIRUBIN,URINE Negative (NEGATIVE); BLOOD, URINE Moderate Ery/uL (NEGATIVE); COLOR,URINE Yellow (YELLOW); KETONES,URINE 15 (NEGATIVE); LEUKOCYTE ESTERASE ,URINE Negative (NEGATIVE); NITRITE, URINE Negative (NEGATIVE); PROTEIN,URINE >=300 mg/dl (NEGATIVE); UGLUCOSE 500 MG/DL mg/dL (NEGATIVE); UROBILINOGEN,URINE 0.2 EU/dL (0.2)
[2017-09-19 09:26] LABS: BACTERIA,URINE Rare /HPF (None Seen); SQUAMOUS EPITHELIAL CELL,UR Few /HPF (None Seen); URINE AMORPHOUS URATE Moderate /HPF (None Seen); WBC,URINE 0-3 /HPF (0-3)
[2017-09-19] MEDS ORDERED: ACETAMINOPHEN 325 MG TABLET PO PRN (10:30)
[2017-09-19] MEDS ORDERED: *INSULIN REGULAR(HUMULIN R)HUM 100 UNIT/ML VIAL SQ PRN (10:30)
[2017-09-19] MEDS ORDERED: DEXTROSE 50%-WATER 50 ML DISP.SYRIN IV PRN (10:30)
[2017-09-19] MEDS ORDERED: hydrALAZINE HCL IV 20 MG VIAL IV PRN (10:30)
--- NOTE | 2017-09-19 10:31 | NUR ---
GAVE REPORT TO LOUIE RN WIL 119 DR LEÓN DX CVA
[2017-09-19 11:00] VITALS: BP 185/80
--- NOTE | 2017-09-19 11:19 | NUR ---
REPORT FROM [facility]IR[facility] ED. PT CONFUSED. CT HEAD SHOWS RIGHT FRONT ISCHEMIC STROKE AND MULTIPLE OLDER STROKES. PT AWAKE ATTEMPTS TO PULL AT LINES. BILAT SOFT WRIST RESTRAINTS FOR SAFETY. HOB ELEVATED. NPO. PLAN FOR SPEECH EVAL. LH20G SL. BED IN LOW LOCKED POSITION. SIDE RAILS UP X3. CALL LIGHT IN REACH. WILL CONT TO MONITOR CLOSELY. DR. HAI TRUJILLO HAS SEEN PT AND STOPPED ELIQUIS AT PRESENT. PT HAS FAMILY WHO WERE ASKED TO STEP OUT OF ER DUE TO FACT THAT PT WAS BECOMING INCREASINGLY AGGITATED IN THEIR COMPANY.
[2017-09-19] MEDS: INSULIN REGULAR, HUMAN 100 UNIT/ML 3 ML VIAL SQ PRN (11:55)
[2017-09-19] MEDS: BLOOD SUGAR DIAGNOSTIC 1 EACH STRIP VI SCH ×3 (11:56→21:14)
[2017-09-19] MEDS ORDERED: BLOOD SUGAR DIAGNOSTIC 1 EACH STRIP IN SCH ×2 (12:00)
[2017-09-19 12:32] LABS: BASOPHILS # (AUTO) 0.1 /CMM (0.0-0.2); BASOPHILS % (AUTO) 0.6 % (0.0-2.0); HEMATOCRIT 37 % (39-51); HEMOGLOBIN 12.6 g/dL (13.5-17.5); LYMPHOCYTES # (AUTO) 0.9 /CMM (0.8-4.8); LYMPHOCYTES % (AUTO) 6.2 % (20.0-44.0); MEAN CORPUSCULAR HEMOGLOBIN 27 PG (26.0-33.0); MEAN CORPUSCULAR HGB CONC 34 g/dl (31.0-36.0); MEAN CORPUSCULAR VOLUME 80 fL (80-96); MONOCYTES # (AUTO) 0.6 /CMM (0.1-1.30); MONOCYTES % (AUTO) 4.3 % (2.0-12.0); NEUTROPHILS # (AUTO) 12.2 /CMM (1.8-8.9); NEUTROPHILS % (AUTO) 88.9 % (43.0-81.0); PLATELET COUNT (AUTO) 380 /CMM (150-450); RDW COEFFICIENT OF VARIATION 13.8 (11.5-15.0); RED BLOOD CELL COUNT(AUTO) 4.62 MIL/uL (4.5-6.0); WHITE BLOOD COUNT (AUTO) 13.7 K/uL (4.3-11.0)
[2017-09-19 13:00] LABS: INR 0.94 (0.87-1.13); PROTHROMBIN TIME 9.8 SECS (9.5-12.7)
[2017-09-19 13:24] LABS: CALCIUM, SERUM 8.4 mg/dL (8.5-10.1); POTASSIUM 4.1 mmol/L (3.5-5.1)
[2017-09-19 13:37] LABS: THYROID STIMULATING HORMONE 1.218 uIU/mL (0.358-3.74)
[2017-09-19 13:41] LABS: ALBUMIN 1.8 g/dL (3.4-5.0); BILIRUBIN,TOTAL 0.3 mg/dL (0.2-1.0); TOTAL PROTEIN, SERUM 5.8 g/dL (6.4-8.2)
--- NOTE | 2017-09-19 15:46 | NUR ---
ORDER CLARIFICATION. AWAITING CALLBACK FROM DR. VALLES TO SEE IF SHE WANTS TO CONTINUE ELIQUIS. SHE HAD TOLD ME SHE WOULD HOLD IT, YET IT'S STILL ON THE EMAR...
[2017-09-19 16:00] VITALS: BP 103/75
--- NOTE | 2017-09-19 16:15 | NUR ---
Second page to Dr. Olson to clarify eliquis. Awaiting callback.
--- NOTE | 2017-09-19 16:45 | NUR ---
Notified Vandana PRATER, need response regarding eliquis clarification.
[2017-09-19] MEDS ORDERED: APIXABAN 2.5 MG TABLET PO SCH (17:00)
--- NOTE | 2017-09-19 17:13 | NUR ---
3RD PAGE TO DR. VALLES FOR ELIQUIS CLARIFICATION--AWAITING CALL BACK.
--- NOTE | 2017-09-19 17:31 | NUR ---
DR. VALLES CALLED TO DISCONTINUE ELIQUIS. I NOTIFIED THE PHARMACIST.
--- NOTE | 2017-09-19 18:00 | NUR ---
RN CLOSING NOTES PT SLEEPING. TELE SR 112. SP 103 DOWN FROM 185 FOLLOWING HYDRALAZINE IVP. 98% RA NON LABORED RESP. PT ATE 10% LUNCH. CONTINUE BILAT SOFT WRIST RESTRAINTS ATTEMPTS TO PULL AT LINES. RENE DARK YELLOW URINE 100 ML PLUS EPISODE INC IN ER RENAL HX. AFEBRILE. BED ALARM ON. FAMILY HAS BEEN CALLED WITH UPDATES THIS AFTERNOON. RN OCCUPATIONAL DR. FITCH VISITED NO NEW ORDERS. SCDS ON. BED IN LOW LOCKED POSITION. SIDE RAILS X 3. CALL LIGHT IN REACH. WILL ENDORSE TO KARIN PEREZ.
[2017-09-19 20:00] VITALS: BP 131/67
[2017-09-19] MEDS: SIMVASTATIN 40 MG TABLET PO SCH (21:14)
[2017-09-19] MEDS: LEVETIRACETAM (250 MG) 250 MG TABLET PO SCH (21:14)
[2017-09-19] MEDS ORDERED: LOSARTAN POTASSIUM 50 MG TABLET PO SCH (22:00)
--- NOTE | 2017-09-19 22:30 | NUR ---
curriculum facilitator: Finger stick blood sugar 170, covered with 3 units of regular insulin.
[2017-09-19 23:30] VITALS: BP 120/70
[2017-09-20] VITALS: BP 140/70
[2017-09-20 04:00] VITALS: BP 137/80
--- NOTE | 2017-09-20 06:51 | NUR ---
neonatal icu coordinator; pt been stable the whole night, not any significant changes noted. pt was getting out of bed, moved closer to station, placed in sitter room. Restraints removed at 1930. Family updated via phone. adequate urine output noted. V/S stable. Will endorse care to next shift
[2017-09-20 07:18] LABS: BASOPHILS % (AUTO) 0.4 % (0.0-2.0); EOSINOPHILS # (AUTO) 0.1 /CMM (0.0-0.7); EOSINOPHILS % (AUTO) 1.1 % (0.0-6.0); HEMATOCRIT 33 % (39-51); HEMOGLOBIN 11.3 g/dL (13.5-17.5); LYMPHOCYTES % (AUTO) 19.6 % (20.0-44.0); MEAN CORPUSCULAR HEMOGLOBIN 28 PG (26.0-33.0); MEAN CORPUSCULAR HGB CONC 34 g/dl (31.0-36.0); MEAN CORPUSCULAR VOLUME 81 fL (80-96); MONOCYTES % (AUTO) 9.9 % (2.0-12.0); NEUTROPHILS # (AUTO) 7.1 /CMM (1.8-8.9); PLATELET COUNT (AUTO) 320 /CMM (150-450); RDW COEFFICIENT OF VARIATION 13.9 (11.5-15.0); RED BLOOD CELL COUNT(AUTO) 4.07 MIL/uL (4.5-6.0); WHITE BLOOD COUNT (AUTO) 10.3 K/uL (4.3-11.0)
[2017-09-20 07:41] LABS: INR 0.94 (0.87-1.13); PROTHROMBIN TIME 9.8 SECS (9.5-12.7)
[2017-09-20 07:51] LABS: CALCIUM, SERUM 8.2 mg/dL (8.5-10.1); CREATININE 3.1 mg/dL (0.6-1.3); POTASSIUM 3.6 mmol/L (3.5-5.1)
[2017-09-20 08:00] VITALS: BP 123/72
[2017-09-20] MEDS: ASPIRIN 325 MG TABLET PO SCH (08:22)
[2017-09-20] MEDS: PANTOPRAZOLE 40 MG TABLET.DR PO SCH (08:22)
[2017-09-20] MEDS: BLOOD SUGAR DIAGNOSTIC 1 EACH STRIP VI SCH ×4 (08:22→21:51)
[2017-09-20] MEDS: LEVETIRACETAM (250 MG) 250 MG TABLET PO SCH ×2 (08:22→21:52)
[2017-09-20] MEDS: INSULIN REGULAR, HUMAN 100 UNIT/ML 3 ML VIAL SQ PRN ×4 (08:29→22:56)
--- NOTE | 2017-09-20 10:41 | NUR ---
WIL RN NOTE 0720: Received patient awake, alert to name only, confused. With sitter at bedside for fall risk. No respiratory distress noted. PIV intact. ST 100's on the monitor. No S/S hypo/hyperglycemia noted at this time. 0900: Able to eat breakfast without difficulty. Tolerated [facility] soft diet. 1030: Done with PT, reported able to walk with walker but with episodes of loss of balance. High risk for fall. Patient remained confused and hard to follow commands.
[2017-09-20 12:00] VITALS: BP 126/81
--- NOTE | 2017-09-20 13:00 | NUR ---
WIL RN NOTE S/E by Dr. Olson, per MD, patient is better today than yesterday as evidenced by communicating more, although still confused. Continue ASA and hold Eliquis still. MD aware for PT done today.
[2017-09-20 16:00] VITALS: BP 158/89
--- NOTE | 2017-09-20 16:03 | NUR ---
Social service consult requested by Dr. Pathak for CVA. Pt. is a 57 year old male who was admitted to [facility] stroke Ischemic. SW and case loader operator Marjorie met with pt. bedside. Pt.is alert and oriented x 2 with bouts of confusion. Pt's daughter Melania was available bedside to answer questions. Pt. resides with his family at [id number] [place] [address], [address] in [place]. ИВАН Velázquez's contact number is . Pt. was independent with his ADL's prior to being hospitalized at [facility]. According to Melania, pt. tends to have bad balance. Pt. has a sitter bedside for safety due to fall risk. SW to apply of IHSS via telephone ([phone]). No other social service needs are requested at this time. SW is available, if needed.
--- NOTE | 2017-09-20 16:55 | NUR ---
Met with patient and daughter Melania [phone], patient lives in the 2nd floor apartment that has no elevator access. Prior to admission, patient was ambulatory and independent with adl's. Has no DME or homehealth reported. SW to apply of IHSS via telephone ([phone]). [facility] family. Addendum: 09/20/17 at 2119 by MICHAEL MASON RN Amended: Links added.
--- NOTE | 2017-09-20 18:33 | NUR ---
WIL RN NOTE No any significant changes noted at this time. Still noted with confusion. Remained on bed for fall risk, sitter at bedside. Kept clean, warm and dry. Needs attended. VSS. Awaiting carotid duplex. Will endorse to next shift.
--- NOTE | 2017-09-20 19:30 | NUR ---
TD RN RCD PT W/DX STROKE; PT IS AWAKE WITH MOMENTS OF CONFUSION. 1:1 SITTER AT BEDSIDE. PT ATTEMPTS TO GET OUT OF BED; NOTED PULLING RENE CATHETER; BLOOD TINGED URINE NOTED. CONTINUE TO MONITOR.
[2017-09-20 20:00] VITALS: BP 159/82
[2017-09-20] MEDS: SIMVASTATIN 40 MG TABLET PO SCH (21:52)
--- NOTE | 2017-09-20 23:00 | NUR ---
TD RN BLOOD SUGAR 184; 3 UNITS INSULIN SQ GIVEN. CONTINUE TO MONITOR.
[2017-09-21] VITALS: BP 150/74
[2017-09-21 04:00] VITALS: BP 146/84
--- NOTE | 2017-09-21 06:43 | NUR ---
TD RN PT REMAINED WITH 1:1 SITTER AT BEDSIDE; PT NOTED TO CONTINUE TO ATTEMPT TO PULL ON IV ACCESS AND RENE. DIFFICULT TO REDIRECT PT.
--- NOTE | 2017-09-21 07:30 | NUR ---
RECEIVED PATIENT AWAKE, APHASIC\ PATIENT IS CONFUSED AFEBRILE CAN WALK TO THE BATHROOM WITH WALKER ASSISTED BY SITTER VITAL SIGNS STABLE
[2017-09-21 07:34] LABS: BASOPHILS # (AUTO) 0.1 /CMM (0.0-0.2); BASOPHILS % (AUTO) 0.4 % (0.0-2.0); EOSINOPHILS % (AUTO) 0.2 % (0.0-6.0); HEMATOCRIT 35 % (39-51); HEMOGLOBIN 11.8 g/dL (13.5-17.5); LYMPHOCYTES # (AUTO) 1.5 /CMM (0.8-4.8); LYMPHOCYTES % (AUTO) 8.2 % (20.0-44.0); MEAN CORPUSCULAR HEMOGLOBIN 28 PG (26.0-33.0); MEAN CORPUSCULAR HGB CONC 34 g/dl (31.0-36.0); MEAN CORPUSCULAR VOLUME 82 fL (80-96); MONOCYTES # (AUTO) 1.4 /CMM (0.1-1.30); MONOCYTES % (AUTO) 8.2 % (2.0-12.0); NEUTROPHILS # (AUTO) 14.7 /CMM (1.8-8.9); PLATELET COUNT (AUTO) 318 /CMM (150-450); RDW COEFFICIENT OF VARIATION 14.1 (11.5-15.0); RED BLOOD CELL COUNT(AUTO) 4.26 MIL/uL (4.5-6.0); WHITE BLOOD COUNT (AUTO) 17.7 K/uL (4.3-11.0)
[2017-09-21 07:49] LABS: ALBUMIN 1.7 g/dL (3.4-5.0); BILIRUBIN,TOTAL 0.4 mg/dL (0.2-1.0); CALCIUM, SERUM 8.4 mg/dL (8.5-10.1); CREATININE 3.2 mg/dL (0.6-1.3); MAGNESIUM 1.7 mg/dL (1.8-2.4); PHOSPHORUS 3.9 mg/dL (2.5-4.9); POTASSIUM 3.5 mmol/L (3.5-5.1); TOTAL PROTEIN, SERUM 5.8 g/dL (6.4-8.2)
[2017-09-21 08:00] VITALS: BP 128/78
[2017-09-21] MEDS: BLOOD SUGAR DIAGNOSTIC 1 EACH STRIP VI SCH ×4 (08:06→22:00)
[2017-09-21] MEDS: PANTOPRAZOLE 40 MG TABLET.DR PO SCH (08:06)
[2017-09-21] MEDS: INSULIN REGULAR, HUMAN 100 UNIT/ML 3 ML VIAL SQ PRN ×3 (08:13→17:14)
[2017-09-21] MEDS: ASPIRIN 325 MG TABLET PO SCH (08:55)
[2017-09-21] MEDS: LEVETIRACETAM (250 MG) 250 MG TABLET PO SCH ×2 (08:55→21:31)
[2017-09-21 10:47] LABS: IRON, SERUM 12 ug/dl (50-175); TOTAL IRON BINDING CAPACITY 194 ug/dl (250-450)
[2017-09-21 12:00] VITALS: BP 128/77
[2017-09-21] MEDS: Magnesium 1GM/D5W 100ML PREMIX 100 ML IV SCH ×2 (13:37→14:34)
--- NOTE | 2017-09-21 19:30 | NUR ---
RECEIVED PT. IN BED SLEEPING W/ RESPIRATIONS EVEN AND UNLABORED. NOT IN ANY ACUTE RESPIRATORY DISTRESS NOTED. W/ 1:1 SITTER AT BEDSIDE. A/O X 1. WAS ABLE TO SAY THE CURRENT PRESIDENT OF US. W/ F/C DRAINING CARLYN COLOR URINE VIA GRAVITY. CALL LIGHT W/REACH WILL CONTINUE TO MONITOR.
[2017-09-21 20:00] VITALS: BP 148/68
[2017-09-21] MEDS: SIMVASTATIN 40 MG TABLET PO SCH (21:31)
[2017-09-22] MEDS: INSULIN REGULAR, HUMAN 100 UNIT/ML 3 ML VIAL SQ PRN ×2 (01:10→12:30)
[2017-09-22 04:00] VITALS: BP 121/63
[2017-09-22] MEDS: BLOOD SUGAR DIAGNOSTIC 1 EACH STRIP VI SCH ×4 (06:30→21:07)
[2017-09-22] MEDS: PANTOPRAZOLE 40 MG TABLET.DR PO SCH (06:31)
--- NOTE | 2017-09-22 06:58 | NUR ---
RN/MS NOTES: PT. IN BED SLEEPING W/ RESPIRATIONS EVEN AND UNLABORED. PT. DOES HAS A TENDENCY OF GETTING OUT OF THE BED WITHOUT CALLING FOR HELP. CALL LIGHT W/ REACH. ALL NEEDS MEET. REPORT GIVEN TO NEXT SHIFT NURSE.
[2017-09-22 07:00] LABS: BASOPHILS % (AUTO) 0.1 % (0.0-2.0); EOSINOPHILS # (AUTO) 0.2 /CMM (0.0-0.7); HEMATOCRIT 34 % (39-51); HEMOGLOBIN 11.4 g/dL (13.5-17.5); LYMPHOCYTES % (AUTO) 9.4 % (20.0-44.0); MEAN CORPUSCULAR HEMOGLOBIN 28 PG (26.0-33.0); MEAN CORPUSCULAR HGB CONC 34 g/dl (31.0-36.0); MEAN CORPUSCULAR VOLUME 82 fL (80-96); MONOCYTES # (AUTO) 1.7 /CMM (0.1-1.30); NEUTROPHILS # (AUTO) 17.7 /CMM (1.8-8.9); NEUTROPHILS % (AUTO) 81.5 % (43.0-81.0); PLATELET COUNT (AUTO) 373 /CMM (150-450); RDW COEFFICIENT OF VARIATION 13.8 (11.5-15.0); RED BLOOD CELL COUNT(AUTO) 4.14 MIL/uL (4.5-6.0); WHITE BLOOD COUNT (AUTO) 21.7 K/uL (4.3-11.0)
[2017-09-22 07:18] LABS: CALCIUM, SERUM 8.2 mg/dL (8.5-10.1); CREATININE 3.3 mg/dL (0.6-1.3); MAGNESIUM 2.3 mg/dL (1.8-2.4); PHOSPHORUS 3.9 mg/dL (2.5-4.9); POTASSIUM 3.9 mmol/L (3.5-5.1)
--- NOTE | 2017-09-22 07:25 | NUR ---
AM RN NOTE Received patient sleeping in his bed, no acute distress noted. No SOB noted resp even and non-labored. 1:1 sitter at pt's side. Bed in low locked position. Will continue to monitor.
[2017-09-22 08:00] VITALS: BP 124/66
[2017-09-22] MEDS: LEVETIRACETAM (250 MG) 250 MG TABLET PO SCH ×2 (08:03→20:45)
[2017-09-22] MEDS: ASPIRIN 325 MG TABLET PO SCH (08:03)
--- NOTE | 2017-09-22 08:45 | NUR ---
RN/MS NOTES: NOTED TEMP OF 102.9. PRN TYLENOL GIVEN W/ COOLING MEASURES RENDERED. WILL CONTINUE TO MONITOR.
[2017-09-22 09:00] LABS: BAND % (MANUAL) 2 % (0.0-5.0); LYMPHOCYTES % (MANUAL) 10 % (16-48); MONOCYTES % (MANUAL) 5 % (0-11.0); NEUTROPHILS % (MANUAL) 83 (42-76)
[2017-09-22] MEDS ORDERED: IV NS 0.9% 1,000 ML IV ONE (14:00)
[2017-09-22] MEDS ORDERED: IV NS 0.9% 100 ML IV ONE (14:00)
[2017-09-22] MEDS ORDERED: CEFTRIAXONE 1GM BAG (ER ONLY) 1 GM/50 ML PIGGYBACK IV SCH (14:00)
[2017-09-22 14:44] LABS: RETICULOCYTE COUNT 1.5 % (0.6-2.5)
[2017-09-22 15:09] LABS: THYROID STIMULATING HORMONE 1.891 uIU/mL (0.358-3.74); URIC ACID 7.7 mg/dL (2.6-7.2)
[2017-09-22] MEDS: CEFTRIAXONE 1 G in IV D5W 50 ML IV SCH (15:23)
[2017-09-22 17:11] LABS: APPEARANCE,URINE CLOUDY (CLEAR); BILIRUBIN,URINE NEGATIVE (NEGATIVE); BLOOD, URINE 3+ Ery/uL (NEGATIVE); COLOR,URINE BROWN (YELLOW); KETONES,URINE NEGATIVE (NEGATIVE); LEUKOCYTE ESTERASE ,URINE 2+ (NEGATIVE); NITRITE, URINE POSITIVE (NEGATIVE); PROTEIN,URINE 3+ mg/dl (NEGATIVE); UGLUCOSE 1+ mg/dL (NEGATIVE); UROBILINOGEN,URINE 0.2 EU/dL (0.2)
[2017-09-22 17:41] LABS: BACTERIA,URINE Many /HPF (None Seen); RBC,URINE TOO NUMEROUS TO COUN /HPF (0-2); SQUAMOUS EPITHELIAL CELL,UR Few /HPF (None Seen); WBC,URINE 21-50 /HPF (0-3)
--- NOTE | 2017-09-22 18:27 | NUR ---
HOUSTON PEREZ NOTE Patient resting in his bed, no acute distress noted. IV site intact and patent, continue on IV fluids. Will Addendum: 09/22/17 at 1829 by COLIN VALENTINE RN add to above note Will endorse care to next shift.
--- NOTE | 2017-09-22 19:30 | NUR ---
RN/MS NOTES: RECEIVED PT. IN BED SLEEPING W/ RESPIRATIONS EVEN AND UNLABORED. A/O X 1. W/ IVF GOING TO RH PATENT AND INTACT W/ NO S/S OF INFECTION NOTED. W/ F/C PATENT AND INTACT DRAINING VIA GRAVITY TO CARLYN COLOR URINE. CALL LIGHT W/REACH. ALL NEEDS MEET AND ATTENDED AND MEET. WILL CONTINUE TO MONITOR.
[2017-09-22 20:00] VITALS: BP 141/71
[2017-09-22 20:15] LABS: CREATININE, URINE 119.2 MG/DL (30.0-125.0)
[2017-09-22 20:38] LABS: URINE TOTAL PROTEIN 871.6 mg/dL (0-11.9)
[2017-09-22] MEDS: SIMVASTATIN 40 MG TABLET PO SCH (21:04)
[2017-09-22 22:00] VITALS: BP 141/71
--- NOTE | 2017-09-22 22:00 | NUR ---
RN/MS NOTES: TEMP 98.7. PT. RESTING AND SLEEPING. CALL LIGHT W/ REACH.
[2017-09-23 04:00] VITALS: BP 127/67
[2017-09-23 06:21] LABS: BASOPHILS % (AUTO) 0.1 % (0.0-2.0); EOSINOPHILS # (AUTO) 0.1 /CMM (0.0-0.7); EOSINOPHILS % (AUTO) 0.5 % (0.0-6.0); HEMATOCRIT 29 % (39-51); HEMOGLOBIN 9.8 g/dL (13.5-17.5); LYMPHOCYTES % (AUTO) 5.3 % (20.0-44.0); MEAN CORPUSCULAR HEMOGLOBIN 28 PG (26.0-33.0); MEAN CORPUSCULAR HGB CONC 34 g/dl (31.0-36.0); MEAN CORPUSCULAR VOLUME 82 fL (80-96); MONOCYTES # (AUTO) 1.5 /CMM (0.1-1.30); MONOCYTES % (AUTO) 7.7 % (2.0-12.0); NEUTROPHILS # (AUTO) 16.5 /CMM (1.8-8.9); NEUTROPHILS % (AUTO) 86.4 % (43.0-81.0); PLATELET COUNT (AUTO) 311 /CMM (150-450); RDW COEFFICIENT OF VARIATION 13.8 (11.5-15.0); RED BLOOD CELL COUNT(AUTO) 3.55 MIL/uL (4.5-6.0); WHITE BLOOD COUNT (AUTO) 19.1 K/uL (4.3-11.0)
[2017-09-23 06:46] LABS: CALCIUM, SERUM 8.1 mg/dL (8.5-10.1); CREATININE 3.3 mg/dL (0.6-1.3); POTASSIUM 3.7 mmol/L (3.5-5.1)
--- NOTE | 2017-09-23 06:56 | NUR ---
RN/MS NOTES: PT. IN BED RESTING W/ RESPIRATIONS EVEN AND UNLABORED. NOT IN ANY ACUTE DISTRESS. ALL NEEDS MEET AND ATTENDED. CALL LIGHT W/REACH. REPORT GIVEN TO NEXT SHIFT NURSE FOR MARGOT.
[2017-09-23 07:01] LABS: PHOSPHORUS 4.4 mg/dL (2.5-4.9)
--- NOTE | 2017-09-23 07:57 | NUR ---
MS/RN NOTES RECIEVED PATIENT RESTING IN BED WAKE AND ORIENTED X2, ABLE TO MAKE NEEDS KNOWN WITH LIMITED COMMUNICATION. PT IN NO FORM OF DISTRESS OR DISCOMFORT, DENIES PAIN AT THIS TIME. RENE CATH IN PLACE DRAINING YELLOW URINE. 30 BS CHECK 178MG/DL. PATIENT EATING BREAKFAST INDEPENDENTLY. IV TO RIGHT HAND INTACT H/L/ SAFETY MEASURES RENDERED CALL LIGHT PLACED WITHIN EASY REACH. WILL CONTINUE TO MONITOR
[2017-09-23 08:00] VITALS: BP 116/66
[2017-09-23] MEDS: PANTOPRAZOLE 40 MG TABLET.DR PO SCH (09:06)
[2017-09-23] MEDS: BLOOD SUGAR DIAGNOSTIC 1 EACH STRIP VI SCH ×4 (09:06→21:12)
[2017-09-23] MEDS: ASPIRIN 325 MG TABLET PO SCH (09:06)
[2017-09-23] MEDS: LEVETIRACETAM (250 MG) 250 MG TABLET PO SCH ×2 (09:06→21:11)
[2017-09-23] MEDS: INSULIN REGULAR, HUMAN 100 UNIT/ML 3 ML VIAL SQ PRN ×3 (09:08→18:23)
[2017-09-23 09:17] LABS: EOSINOPHILS % (MANUAL) 1 % (0-4); LYMPHOCYTES % (MANUAL) 4 % (16-48); MONOCYTES % (MANUAL) 6 % (0-11.0); NEUTROPHILS % (MANUAL) 89 (42-76)
[2017-09-23 10:44] VITALS: BP 116/66
--- NOTE | 2017-09-23 11:20 | NUR ---
MS/RN NOTES PATIENT TAKEN FOR EGD PROCEDURE. Addendum: 09/23/17 at 1121 by VENESSA MARROQUIN RN ERROR/ WRONG PT
[2017-09-23] MEDS ORDERED: INSU100V28 SQ (14:31)
[2017-09-23] MEDS ORDERED: SIMV40TA5 PO (14:31)
[2017-09-23] MEDS ORDERED: CEFT1FRO2 IV (14:31)
[2017-09-23] MEDS ORDERED: *INS REG SQ (14:31)
[2017-09-23] MEDS: CEFTRIAXONE 1 G in IV D5W 50 ML IV SCH (14:52)
[2017-09-23 16:00] VITALS: BP 122/60
--- NOTE | 2017-09-23 19:30 | NUR ---
ms/rn notes patient resting in bed comfortably, all due medications given all needs met and attended, safety measures rendered, patient kept clean and dry. patient denied any presents of pain. no s/s of distress/discomfort noted. gonsalez cath of 500 output and culture sent to lab. will endorse care to construction contractor for slava
--- NOTE | 2017-09-23 19:30 | NUR ---
RN/MS NOTES: RECEIVED PT. IN BED SLEEPING W/ RESPIRATIONS EVEN AND UNLABORED. A/O X 1. W/ HL RH PATENT AND INTACT W/ NO S/S OF INFECTION NOTED. W/ F/C PATENT AND INTACT DRAINING VIA GRAVITY TO CARLYN COLOR URINE. CALL LIGHT W/REACH. ALL NEEDS MEET AND ATTENDED AND MEET. WILL CONTINUE TO MONITOR.
--- NOTE | 2017-09-23 19:30 | NUR ---
RN/ MS NOTES: RECEIVED PT. IN BED SLEEPING W/ RESPIRATIONS EVEN AND UNLABORED. A/O X 1. HL TO RH PATENT AND INTACT W/ NO S/S OF INFECTION NOTED. W/ F/C PATENT AND INTACT DRAINING VIA GRAVITY TO CARLYN COLOR URINE. CALL LIGHT W/REACH. ALL NEEDS MEET AND ATTENDED AND MEET. WILL CONTINUE TO MONITOR.
[2017-09-23 20:00] VITALS: BP 137/77
[2017-09-23] MEDS: SIMVASTATIN 40 MG TABLET PO SCH (21:11)
[2017-09-24 04:00] VITALS: BP 144/74
--- NOTE | 2017-09-24 06:59 | NUR ---
RN/MS NOTES: PT. IN BED SLEEPING W/ RESPIRATION EVEN AND UNLABORED. SLEEPT THROUGHT NIGHT. REPORT GIVEN TO NEXT SHIFT NURSE MARGOT. CALL LIGHT W/ REACH. ALL NEEDS MEET. WILL CONTINUE TO MONITOR.
[2017-09-24 07:22] LABS: BASOPHILS % (AUTO) 0.1 % (0.0-2.0); EOSINOPHILS # (AUTO) 0.5 /CMM (0.0-0.7); EOSINOPHILS % (AUTO) 3.7 % (0.0-6.0); HEMATOCRIT 32 % (39-51); HEMOGLOBIN 10.9 g/dL (13.5-17.5); LYMPHOCYTES # (AUTO) 1.6 /CMM (0.8-4.8); MEAN CORPUSCULAR HEMOGLOBIN 28 PG (26.0-33.0); MEAN CORPUSCULAR HGB CONC 34 g/dl (31.0-36.0); MEAN CORPUSCULAR VOLUME 82 fL (80-96); MONOCYTES # (AUTO) 1.3 /CMM (0.1-1.30); MONOCYTES % (AUTO) 9.7 % (2.0-12.0); NEUTROPHILS # (AUTO) 9.9 /CMM (1.8-8.9); NEUTROPHILS % (AUTO) 74.5 % (43.0-81.0); PLATELET COUNT (AUTO) 329 /CMM (150-450); RDW COEFFICIENT OF VARIATION 13.7 (11.5-15.0); RED BLOOD CELL COUNT(AUTO) 3.94 MIL/uL (4.5-6.0); WHITE BLOOD COUNT (AUTO) 13.3 K/uL (4.3-11.0)
--- NOTE | 2017-09-24 07:31 | NUR ---
RN NOTES RECIEVED PT FROM VEST PRESSER IN STABLE CONDITION, RESTING IN BED, A&0X2-3. ON ROOM AIR SATING WELL. RENE DRAINING TO GRAVITY. RH22G IV SITE DRY AND INTACT NO IVF. SITTING AT BEDSIDE. BED LOCKED AND IN LOWEST POSITION, SIDE RAILS UPX3, CALL LIGHT WITHIN REACH, WILL CONT TO MONITOR.
[2017-09-24 07:41] LABS: CALCIUM, SERUM 8.2 mg/dL (8.5-10.1); PHOSPHORUS 4.1 mg/dL (2.5-4.9); POTASSIUM 3.6 mmol/L (3.5-5.1)
[2017-09-24 08:00] VITALS: BP 121/66
--- NOTE | 2017-09-24 08:16 | NUR ---
SW contacted [facility] ([phone]) and spoke with Ani and applied for [facility] for the pt. [facility] case number is [id number].
[2017-09-24] MEDS: LEVETIRACETAM (250 MG) 250 MG TABLET PO SCH (08:41)
[2017-09-24] MEDS: ASPIRIN 325 MG TABLET PO SCH (08:41)
[2017-09-24] MEDS: PANTOPRAZOLE 40 MG TABLET.DR PO SCH (08:41)
[2017-09-24] MEDS: BLOOD SUGAR DIAGNOSTIC 1 EACH STRIP VI SCH ×2 (08:42→12:07)
[2017-09-24] MEDS: INSULIN REGULAR, HUMAN 100 UNIT/ML 3 ML VIAL SQ PRN ×2 (08:44→12:09)
--- NOTE | 2017-09-24 11:23 | NUR ---
VANIGE contacted pt's daughter Melania and informed her that SW applied for [facility] for pt. and gave her phone number to [facility] ([phone]) along with .
--- NOTE | 2017-09-24 13:48 | NUR ---
RN NOTES PT DISCHARGED IN STABLE CONDITION WITH EMT AT BEDSIDE. DAUGHTER NOTIFIED. RENE REMOVED.
[2017-09-25 10:58] LABS: CALCITRIOL VIT D,1, 25 DIHYDRO 13.4 pg/mL (19.9-79.3)
== END 2017-09-24 13:40 | DRG 45 ==
LOC: ER 07:44 → TELE1 10:36 → TELE-TD 10:38 → TELE1 09-21 13:03 → MEDSG1 09-21 19:00
PROVIDERS: ADMIT Internal Medicine; ATTEND Internal Medicine
DX: I63.521 Cerebral infarction due to unspecified occlusion or stenosis of right anterior cerebral artery (principal); N17.0 Acute kidney failure with tubular necrosis; I21.A1 Myocardial infarction type 2; E11.00 Type 2 diabetes mellitus with hyperosmolarity without nonketotic hyperglycemic-hyperosmolar coma (NKHHC); G92 Toxic encephalopathy; E43 Unspecified severe protein-calorie malnutrition; K31.84 Gastroparesis; E11.43 Type 2 diabetes mellitus with diabetic autonomic (poly)neuropathy; R65.10 Systemic inflammatory response syndrome (SIRS) of non-infectious origin without acute organ dysfunction; E11.22 Type 2 diabetes mellitus with diabetic chronic kidney disease; R13.10 Dysphagia, unspecified; Z86.73 Personal history of transient ischemic attack (TIA), and cerebral infarction without residual deficits; Z86.718 Personal history of other venous thrombosis and embolism; Z79.899 Other long term (current) drug therapy; Z79.82 Long term (current) use of aspirin; Z79.4 Long term (current) use of insulin; Z79.01 Long term (current) use of anticoagulants; G40.909 Epilepsy, unspecified, not intractable, without status epilepticus; I25.5 Ischemic cardiomyopathy; I25.10 Atherosclerotic heart disease of native coronary artery without angina pectoris; Z98.61 Coronary angioplasty status; B96.89 Other specified bacterial agents as the cause of diseases classified elsewhere; I12.9 Hypertensive chronic kidney disease with stage 1 through stage 4 chronic kidney disease, or unspecified chronic kidney disease; N18.9 Chronic kidney disease, unspecified; N39.0 Urinary tract infection, site not specified; E78.5 Hyperlipidemia, unspecified; D64.9 Anemia, unspecified
CPT/HCPCS: 36415; 70450-TC; 71010-TC; 76770-TC; 80048-TC; 80053-TC; 80061-TC; 80076-TC; 80305; 81000-TC; 82140-TC; 82306; 82570-TC; 82652; 82728-TC; 82962-TC; 83010; 83540-TC; 83615-TC; 83735-TC; 83880; 83970; 84100-TC; 84155-TC; 84300-TC; 84443-TC; 84484-TC; 84550-TC; 85025-TC; 85045-TC; 85652-TC; 85730-TC; 87040-TC; 87081-TC; 87086-TC; 87186-TC; 92507-TC; 92521; 92526; 92611-TC; 93880-TC; 97112-TC; 97116-TC; 97530-TC; A4606; G0480; J0360; J0696; J1815; J2405; J3475; J3490; J7030; J7050; J7060; Z7610

== ENCOUNTER 2017-10-14 08:02 | Inpatient (IN) | payer MEDICAID ==
[~2017-10-14] VITALS: Ht 175.3 cm; Wt 72.1 kg
[~2017-10-14 08:02] MED LIST changes: +*INS REG SQ; +CEFT1FRO2 IV; -INSU100I4 SQ; +INSU100V28 SQ; -INSU3INS6 SQ; +SIMV40TA5 PO
[2017-10-14] MEDS ORDERED: ALBUTEROL FS 2.5 MG/3 ML VIAL.NEB ONE (08:10)
[2017-10-14] MEDS ORDERED: RACEPINEPHRINE HCL 2.25% NEB 0.5 ML VIAL.NEB IH ONE (08:10)
[2017-10-14 08:23] LABS: BASOPHILS # (AUTO) 0.1 /CMM (0.0-0.2); BASOPHILS % (AUTO) 0.5 % (0.0-2.0); EOSINOPHILS # (AUTO) 0.5 /CMM (0.0-0.7); EOSINOPHILS % (AUTO) 3.9 % (0.0-6.0); HEMATOCRIT 32 % (39-51); HEMOGLOBIN 10.8 g/dL (13.5-17.5); LYMPHOCYTES # (AUTO) 1.6 /CMM (0.8-4.8); LYMPHOCYTES % (AUTO) 11.6 % (20.0-44.0); MEAN CORPUSCULAR HEMOGLOBIN 26 PG (26.0-33.0); MEAN CORPUSCULAR HGB CONC 33 g/dl (31.0-36.0); MEAN CORPUSCULAR VOLUME 79 fL (80-96); MONOCYTES # (AUTO) 0.7 /CMM (0.1-1.30); MONOCYTES % (AUTO) 4.9 % (2.0-12.0); NEUTROPHILS # (AUTO) 11.1 /CMM (1.8-8.9); NEUTROPHILS % (AUTO) 79.1 % (43.0-81.0); PLATELET COUNT (AUTO) 394 /CMM (150-450); RDW COEFFICIENT OF VARIATION 13.6 (11.5-15.0); RED BLOOD CELL COUNT(AUTO) 4.11 MIL/uL (4.5-6.0); WHITE BLOOD COUNT (AUTO) 14.1 K/uL (4.3-11.0)
[2017-10-14] MEDS ORDERED: ALBUTEROL FS 2.5 MG/3 ML VIAL.NEB NEB ONE (08:30)
[2017-10-14] MEDS ORDERED: IPRATROPIUM NEB FS 0.5 MG/2.5 ML AMPUL.NEB NEB ONE (08:30)
[2017-10-14 08:32] LABS: CALCIUM, SERUM 8.2 mg/dL (8.5-10.1); CREATININE 2.9 mg/dL (0.6-1.3); POTASSIUM 4.8 mmol/L (3.5-5.1)
[2017-10-14 08:38] LABS: BILIRUBIN,TOTAL 0.2 mg/dL (0.2-1.0); TOTAL PROTEIN, SERUM 6.7 g/dL (6.4-8.2)
[2017-10-14 08:40] LABS: TROPONIN I 0.021 ng/mL (0.00-0.056)
[2017-10-14] MEDS ORDERED: VANCOMYCIN 1 GM in IV D5W 250 ML IV ONE (09:00)
[2017-10-14] MEDS ORDERED: PIPERACILLIN /TAZOBACTAM 3.375 G in IV D5W 50 ML IV ONE (09:00)
[2017-10-14] MEDS ORDERED: IV NS 0.9% 1,000 ML BAG IV ONE (09:30)
[2017-10-14 09:33] LABS: ABG BASE EXCESS -4.5 mmol/L; ABG OXYGEN SATURATION 90.4 % (92.0-98.5); ABG PCO2 29.5 mmHg (35.0-45.0); ABG PH 7.426 (7.350-7.450); ABG PO2 62.7 mmHg (75.0-100.0); AaDO2 51.7 mmHg; COHb 0.3 % (0.5-1.5); MetHb 0.7 % (0.0-1.5); O2Hb 89.5 % (94.0-97.0); SITE, ABG Right Radial; VENT MODE, BG ROOM AIR
[2017-10-14] MEDS ORDERED: ASPI81TA2 PO (09:38)
[2017-10-14] MEDS ORDERED: INSU3INS6 SQ (09:38)
[2017-10-14] MEDS ORDERED: LEVE500T9 PO (09:38)
[2017-10-14] MEDS ORDERED: PANT40TA2 PO (09:38)
[2017-10-14] MEDS ORDERED: APIX5TAB PO (09:38)
[2017-10-14] MEDS ORDERED: ATOR10TA PO (09:38)
[2017-10-14] MEDS ORDERED: MAGNESIUM HYDROXIDE 30 ML UDC PO PRN (11:00)
[2017-10-14] MEDS ORDERED: ONDANSETRON HCL/PF 4 MG/2 ML VIAL IVP PRN (11:00)
[2017-10-14] MEDS ORDERED: Z GUARD REMEDY 2 OZ OINT TP PRN (11:00)
[2017-10-14] MEDS ORDERED: ACETAMINOPHEN 325 MG TABLET PO PRN (11:00)
[2017-10-14] MEDS ORDERED: ZOLPIDEM TARTRATE 5 MG TABLET PO PRN (11:00)
[2017-10-14] MEDS ORDERED: HYDROCODONE/APAP 5/325MG 1 EACH TABLET PO PRN (11:00)
[2017-10-14] MEDS ORDERED: MAG HYDROX/AL HYDROX/SIMETH 30 ML UDC PO PRN (11:00)
[2017-10-14] MEDS ORDERED: FEE PK DOSING 1 MIN EA MC ONE (11:42)
[2017-10-14] MEDS ORDERED: LEVOFLOXACIN 500 MG /D5W 100ML 500 MG in PREMIX 1 EA IV ONE (12:00)
[2017-10-14] MEDS: PIPERACILLIN /TAZOBACTAM 2.25 G in IV D5W 50 ML IV SCH ×2 (12:40→19:02)
[2017-10-14] MEDS ORDERED: POTASSIUM CHLORIDE 20 MEQ TAB.PRT.SR PO ONE (15:00)
[2017-10-14] MEDS ORDERED: FUROSEMIDE 40 MG/4 ML VIAL IV SCH ×2 (15:00→17:05)
[2017-10-14 16:00] VITALS: BP 108/58
[2017-10-14] MEDS ORDERED: DEXTROSE 50%-WATER 50 ML DISP.SYRIN IV PRN (16:30)
[2017-10-14] MEDS: BLOOD SUGAR DIAGNOSTIC 1 EACH STRIP IN SCH ×2 (17:44→21:46)
[2017-10-14] MEDS: INSULIN REGULAR, HUMAN 100 UNIT/ML 3 ML VIAL SQ PRN (17:50)
[2017-10-14] MEDS: APIXABAN 5 MG TABLET PO SCH (19:02)
[2017-10-14 19:58] VITALS: BP 122/69
[2017-10-14] MEDS: LEVETIRACETAM (250 MG) 250 MG TABLET PO SCH (20:48)
[2017-10-14] MEDS: FUROSEMIDE 40 MG/4 ML VIAL IV SCH (21:35)
[2017-10-14] MEDS: INSULIN DETEMIR 100 UNIT/ML CARTRIDGE SQ SCH (21:40)
[2017-10-14] MEDS: *INSULIN REGULAR(HUMULIN R)HUM 100 UNIT/ML VIAL SQ PRN (21:42)
[2017-10-14 22:00] VITALS: BP 122/69
[2017-10-15] VITALS: BP_SYST 122; BP_SYST 133; BP_DIAS 69; BP_DIAS 70
[2017-10-15] MEDS: PIPERACILLIN /TAZOBACTAM 2.25 G in IV D5W 50 ML IV SCH ×5 (01:20→23:25)
[2017-10-15] MEDS: FUROSEMIDE 40 MG/4 ML VIAL IV SCH ×2 (01:20→04:48)
[2017-10-15 04:00] VITALS: BP 128/71
[2017-10-15 06:28] LABS: BASOPHILS % (AUTO) 0.2 % (0.0-2.0); EOSINOPHILS # (AUTO) 0.2 /CMM (0.0-0.7); HEMATOCRIT 28 % (39-51); HEMOGLOBIN 9.5 g/dL (13.5-17.5); LYMPHOCYTES # (AUTO) 1.6 /CMM (0.8-4.8); LYMPHOCYTES % (AUTO) 14.1 % (20.0-44.0); MEAN CORPUSCULAR HEMOGLOBIN 27 PG (26.0-33.0); MEAN CORPUSCULAR HGB CONC 34 g/dl (31.0-36.0); MEAN CORPUSCULAR VOLUME 79 fL (80-96); MONOCYTES # (AUTO) 0.6 /CMM (0.1-1.30); MONOCYTES % (AUTO) 5.4 % (2.0-12.0); NEUTROPHILS % (AUTO) 78.3 % (43.0-81.0); PLATELET COUNT (AUTO) 392 /CMM (150-450); RDW COEFFICIENT OF VARIATION 13.1 (11.5-15.0); RED BLOOD CELL COUNT(AUTO) 3.57 MIL/uL (4.5-6.0); WHITE BLOOD COUNT (AUTO) 11.5 K/uL (4.3-11.0)
[2017-10-15 06:51] LABS: ALBUMIN 1.9 g/dL (3.4-5.0); BILIRUBIN,TOTAL 0.4 mg/dL (0.2-1.0); CALCIUM, SERUM 8.2 mg/dL (8.5-10.1); CREATININE 3.1 mg/dL (0.6-1.3); PHOSPHORUS 3.6 mg/dL (2.5-4.9); POTASSIUM 3.9 mmol/L (3.5-5.1); TOTAL PROTEIN, SERUM 6.7 g/dL (6.4-8.2)
[2017-10-15] MEDS: BLOOD SUGAR DIAGNOSTIC 1 EACH STRIP IN SCH ×4 (06:56→21:17)
[2017-10-15 07:09] LABS: CREATINE KINASE MB 13.7 ng/mL (0-3.6)
[2017-10-15 07:42] LABS: MAGNESIUM 1.1 mg/dL (1.8-2.4)
[2017-10-15 08:00] VITALS: BP 138/77
[2017-10-15] MEDS: APIXABAN 5 MG TABLET PO SCH ×2 (11:05→17:32)
[2017-10-15] MEDS: LEVETIRACETAM (250 MG) 250 MG TABLET PO SCH ×2 (11:05→21:15)
[2017-10-15] MEDS: ASPIRIN 81 MG TAB.CHEW PO SCH (11:05)
[2017-10-15] MEDS: VANCOMYCIN 1 GM in IV D5W 250 ML IV SCH (11:05)
[2017-10-15] MEDS ORDERED: Magnesium 1 GM/2 ML VIAL IV ONE (13:00)
[2017-10-15] MEDS: LEVOFLOXACIN 250 MG /D5W 50 ML 250 MG in PREMIX 1 EA IV SCH (13:13)
[2017-10-15] MEDS: Magnesium 1GM/D5W 100ML PREMIX 100 ML IV SCH ×4 (14:50→18:38)
[2017-10-15 16:00] VITALS: BP 117/70
[2017-10-15] MEDS: LACTOBACILLUS RHAMNOSUS GG 1 EACH CAP.SPRINK PO SCH (17:32)
[2017-10-15] MEDS: INSULIN REGULAR, HUMAN 100 UNIT/ML 3 ML VIAL SQ PRN (17:39)
[2017-10-15 20:00] VITALS: BP 121/62
[2017-10-15] MEDS: INSULIN DETEMIR 100 UNIT/ML CARTRIDGE SQ SCH (21:19)
[2017-10-15] MEDS: *INSULIN REGULAR(HUMULIN R)HUM 100 UNIT/ML VIAL SQ PRN (21:20)
[2017-10-15 22:00] VITALS: BP 130/82
[2017-10-16] MEDS: PIPERACILLIN /TAZOBACTAM 2.25 G in IV D5W 50 ML IV SCH ×3 (05:54→18:00)
[2017-10-16] MEDS: BLOOD SUGAR DIAGNOSTIC 1 EACH STRIP IN SCH ×3 (06:50→17:14)
[2017-10-16 07:11] LABS: BASOPHILS % (AUTO) 0.4 % (0.0-2.0); EOSINOPHILS # (AUTO) 0.8 /CMM (0.0-0.7); EOSINOPHILS % (AUTO) 8.3 % (0.0-6.0); HEMATOCRIT 27 % (39-51); HEMOGLOBIN 8.9 g/dL (13.5-17.5); LYMPHOCYTES # (AUTO) 1.6 /CMM (0.8-4.8); LYMPHOCYTES % (AUTO) 17.2 % (20.0-44.0); MEAN CORPUSCULAR HEMOGLOBIN 26 PG (26.0-33.0); MEAN CORPUSCULAR HGB CONC 34 g/dl (31.0-36.0); MEAN CORPUSCULAR VOLUME 78 fL (80-96); MONOCYTES # (AUTO) 0.9 /CMM (0.1-1.30); MONOCYTES % (AUTO) 9.1 % (2.0-12.0); NEUTROPHILS # (AUTO) 6.2 /CMM (1.8-8.9); PLATELET COUNT (AUTO) 349 /CMM (150-450); RDW COEFFICIENT OF VARIATION 13.2 (11.5-15.0); WHITE BLOOD COUNT (AUTO) 9.6 K/uL (4.3-11.0)
[2017-10-16 07:19] LABS: CALCIUM, SERUM 7.8 mg/dL (8.5-10.1); CREATININE 3.1 mg/dL (0.6-1.3); POTASSIUM 3.8 mmol/L (3.5-5.1)
[2017-10-16 08:00] VITALS: BP 140/82
[2017-10-16] MEDS: ASPIRIN 81 MG TAB.CHEW PO SCH (08:20)
[2017-10-16] MEDS: LEVETIRACETAM (250 MG) 250 MG TABLET PO SCH (08:20)
[2017-10-16] MEDS: APIXABAN 5 MG TABLET PO SCH ×2 (08:21→17:19)
[2017-10-16] MEDS: LACTOBACILLUS RHAMNOSUS GG 1 EACH CAP.SPRINK PO SCH ×2 (08:21→17:18)
[2017-10-16] MEDS: VANCOMYCIN 1 GM in IV D5W 250 ML IV SCH (11:40)
[2017-10-16] MEDS: LEVOFLOXACIN 250 MG /D5W 50 ML 250 MG in PREMIX 1 EA IV SCH (12:29)
[2017-10-16 16:00] VITALS: BP 158/93
[2017-10-16] MEDS: INSULIN REGULAR, HUMAN 100 UNIT/ML 3 ML VIAL SQ PRN (17:20)
[2017-10-17 08:18] LABS: *SPE A/G RATIO 0.6 (0.7-1.7); *SPE ALBUMIN 2.2 g/dL (2.9-4.4); *SPE ALPHA-1-GLOBULIN 0.3 g/dL (0.0-0.4); *SPE BETA GLOBULIN 1.1 g/dL (0.7-1.3); *SPE GLOBULIN, TOTAL 3.6 g/dL (2.2-3.9); *SPE M-SPIKE Not Observed g/dL (Not Observed); *SPEGAMMA GLOBULIN 1.1 g/dL (0.4-1.8)
[2017-10-17 13:11] LABS: CALCITRIOL VIT D,1, 25 DIHYDRO 19.8 pg/mL (19.9-79.3)
[2017-10-19 05:39] LABS: PTH, INTACT 147 pg/mL (15-65)
== END 2017-10-16 18:09 | disposition home or self-care (01) | DRG 133 ==
LOC: ER 08:05 → TELE 09:29 → MED 10-15 08:39
PROVIDERS: ADMIT Family Medicine; ATTEND Family Medicine
DX: J96.01 Acute respiratory failure with hypoxia (principal); N17.0 Acute kidney failure with tubular necrosis; J15.6 Pneumonia due to other Gram-negative bacteria; E43 Unspecified severe protein-calorie malnutrition; I50.33 Acute on chronic diastolic (congestive) heart failure; J15.9 Unspecified bacterial pneumonia; I13.0 Hypertensive heart and chronic kidney disease with heart failure and stage 1 through stage 4 chronic kidney disease, or unspecified chronic kidney disease; J81.1 Chronic pulmonary edema; E11.22 Type 2 diabetes mellitus with diabetic chronic kidney disease; Z86.73 Personal history of transient ischemic attack (TIA), and cerebral infarction without residual deficits; Z87.891 Personal history of nicotine dependence; Z79.899 Other long term (current) drug therapy; Z79.82 Long term (current) use of aspirin; Z79.4 Long term (current) use of insulin; Z79.01 Long term (current) use of anticoagulants; I10 Essential (primary) hypertension; I25.10 Atherosclerotic heart disease of native coronary artery without angina pectoris; N18.4 Chronic kidney disease, stage 4 (severe); E78.5 Hyperlipidemia, unspecified; E83.42 Hypomagnesemia; F10.21 Alcohol dependence, in remission; E11.65 Type 2 diabetes mellitus with hyperglycemia
CPT/HCPCS: 36415; 36600; 71010-TC; 71250-TC; 73130-TC; 80048-TC; 80053-TC; 80061-TC; 80076-TC; 82306; 82550-TC; 82553-TC; 82652; 82962-TC; 83605-TC; 83735-TC; 83880; 83970; 84100-TC; 84155; 84165; 84484-TC; 85025-TC; 87040-TC; 87081-TC; 93307-TC; A4216; A4606; J1815; J1940; J1956; J2543; J3370; J3475; J7030; J7050; J7060; Z7610

== ENCOUNTER 2019-02-19 11:28 | Inpatient (IN) | payer MEDICARE, MEDICAID ==
[~2019-02-19] VITALS: Ht 182.9 cm; Wt 68.0 kg
[~2019-02-19 11:28] MED LIST changes: -*INS REG SQ; -APIX2.5T PO; +APIX5TAB PO; +ASPI-1169 PO; -ASPI325T2 PO; +ATOR10TA PO; -CEFT1FRO2 IV; -INSU100V28 SQ; +INSU3INS6 SQ; -LEVE250T2 PO; +LEVE500T9 PO; -LOSA50TA21 PO; +PANT40TA2 PO; -SIMV40TA5 PO
--- NOTE | 2019-02-19 12:00 | NUR ---
[facility]90 FOR DIALYSIS, LAST DIALYSIS 2 WEEKS AGO, NO OTHER COMPLAINT PROVIDED. PT AAOX3, VSS. DENIES CP, SOB, DIZZINESS, N/V/D, WEAKNESS @ THIS TIME. PT SEEN & EVAL'D BY OSVALDO MCDANIEL. PLACED ON HEAVY EQUIPMENT OPERATOR APPRENTICE. SR. WILL CONT TO MONITOR. @ BS.
[2019-02-19 12:09] LABS: BASOPHILS # (AUTO) 0.1 /CMM (0.0-0.2); EOSINOPHILS % (AUTO) 4.5 % (0.0-6.0); HEMATOCRIT 42 % (39-51); HEMOGLOBIN 14.2 g/dL (13.5-17.5); LYMPHOCYTES # (AUTO) 1.9 /CMM (0.8-4.8); LYMPHOCYTES % (AUTO) 24.3 % (20.0-44.0); MEAN CORPUSCULAR HGB CONC 34 g/dl (31.0-36.0); MEAN CORPUSCULAR VOLUME 88 fL (80-96); MONOCYTES # (AUTO) 0.7 /CMM (0.1-1.30); MONOCYTES % (AUTO) 8.9 % (2.0-12.0); NEUTROPHILS # (AUTO) 4.7 /CMM (1.8-8.9); NEUTROPHILS % (AUTO) 61.3 % (43.0-81.0); PLATELET COUNT (AUTO) 300 /CMM (150-450); RED BLOOD CELL COUNT(AUTO) 4.75 MIL/uL (4.5-6.0); WHITE BLOOD COUNT (AUTO) 7.7 K/uL (4.3-11.0)
[2019-02-19] MEDS ORDERED: ONDANSETRON HCL/PF 4 MG/2 ML VIAL ONE (12:11)
[2019-02-19 12:22] LABS: ALBUMIN 3.3 g/dL (3.4-5.0); BILIRUBIN,DIRECT 0.1 mg/dL (0.0-0.2); BILIRUBIN,TOTAL 0.2 mg/dL (0.2-1.0); CALCIUM, SERUM 6.5 mg/dL (8.5-10.1); POTASSIUM 4.5 mmol/L (3.5-5.1)
--- NOTE | 2019-02-19 12:24 | NUR ---
CONTACT INFO: MARTHA () [phone]
[2019-02-19 12:25] LABS: CREATININE 9.8 mg/dL (0.6-1.3)
--- NOTE | 2019-02-19 13:05 | NUR ---
CALLED [facility]SE [facility] FOR TELE BED
[2019-02-19] MEDS ORDERED: ENALAPRILAT INJ (1.25 MG/ML) 1.25 MG/ML VIAL IV STA (13:12)
[2019-02-19] MEDS ORDERED: NITROGLYCERIN 0.4 MG/TAB BOTTLE ONE (13:24)
[2019-02-19] MEDS ORDERED: NITROGLYCERIN 0.4 MG/TAB BOTTLE SL ONE (13:30)
--- NOTE | 2019-02-19 13:50 | NUR ---
MEDICATED FOR ELEVATED BP PER OSVALDO MCDANIEL'S ORDER, PT DANELLE WELL. DENIES CP, SOB, DIZZINESS, N/V @ THIS TIME. ON BOOKKEEPER ASSISTANT, SR. WILL CONT TO MONITOR.
[2019-02-19] MEDS ORDERED: FUROSEMIDE 20 MG/2 ML VIAL IV SCH (15:00)
[2019-02-19] MEDS ORDERED: FUROSEMIDE 40 MG/4 ML VIAL ONE (15:11)
[2019-02-19] MEDS ORDERED: ONDANSETRON HCL/PF - ER 4 MG/2 ML VIAL IV ONE (15:30)
--- NOTE | 2019-02-19 15:37 | NUR ---
MEDICATED ORDERED BY OSVALDO MCDANIEL. PT STABLE DENIES CP, SOB, DIZZINESS, N/V, WEAKNESS @ THIS TIME. WILL CONT TO MONITOR.
[2019-02-19 18:21] LABS: APPEARANCE,URINE Clear (CLEAR); BILIRUBIN,URINE Negative (NEGATIVE); BLOOD, URINE Small Ery/uL (NEGATIVE); COLOR,URINE Yellow (YELLOW); KETONES,URINE Negative (NEGATIVE); LEUKOCYTE ESTERASE ,URINE Negative (NEGATIVE); NITRITE, URINE Negative (NEGATIVE); PH,URINE 6.5 (5.0-8.0); PROTEIN,URINE >=300 mg/dl (NEGATIVE); UGLUCOSE 250 MG/DL mg/dL (NEGATIVE); UROBILINOGEN,URINE 0.2 EU/dL (0.2)
[2019-02-19] MEDS ORDERED: ONDANSETRON HCL/PF 4 MG/2 ML VIAL IVP PRN (18:30)
[2019-02-19] MEDS ORDERED: MAG HYDROX/AL HYDROX/SIMETH 30 ML UDC PO PRN (18:30)
[2019-02-19] MEDS ORDERED: MAGNESIUM HYDROXIDE 30 ML UDC PO PRN (18:30)
[2019-02-19] MEDS ORDERED: ACETAMINOPHEN 325 MG TABLET PO PRN (18:30)
[2019-02-19] MEDS ORDERED: HYDROCODONE/APAP 5/325MG 1 EACH TABLET PO PRN (18:30)
[2019-02-19] MEDS ORDERED: DEXTROSE 50%-WATER 50 ML DISP.SYRIN IV PRN (18:30)
[2019-02-19] MEDS ORDERED: Z GUARD REMEDY 2 OZ OINT TP PRN (18:30)
[2019-02-19 18:31] LABS: BACTERIA,URINE Rare /HPF (None Seen); MUCUS,URINE Few /LPF (None Seen); SQUAMOUS EPITHELIAL CELL,UR Few /HPF (None Seen); URINE AMORPHOUS URATE Few /HPF (None Seen); WBC,URINE 0-2 /HPF (0-3)
[2019-02-19] MEDS ORDERED: APIXABAN 5 MG TABLET PO ONE (19:00)
--- NOTE | 2019-02-19 19:16 | NUR ---
INFORMATION SYSTEMS DIRECTOR NOTE RECEIVED REPORT FROM ALLY PEREZ FROM ER,REPORT GIVEN TO MOE FOR MARGOT.
[2019-02-19 20:00] VITALS: BP 160/100
[2019-02-19 20:32] VITALS: BP 160/100
[2019-02-19] MEDS: BLOOD SUGAR DIAGNOSTIC 1 EACH STRIP IN SCH (21:53)
[2019-02-19] MEDS: LEVETIRACETAM (250 MG) 250 MG TABLET PO SCH (21:55)
[2019-02-19] MEDS: ATORVASTATIN 10 MG TABLET PO SCH (21:55)
[2019-02-19] MEDS: INSULIN GLARGINE, 100 UNIT/ML CARTRIDGE SQ SCH (21:59)
[2019-02-19 23:55] VITALS: BP 124/71
[2019-02-20] VITALS (7 sets, daily range): BP systolic 121–170; BP diastolic 68–101
--- NOTE | 2019-02-20 07:05 | NUR ---
SEALANT MIXER OPENING NOTES RECEIVED PT LYING ON BED.ALERT/ORIENTED X2 WITH FORGETFUL.ON ROOM AIR,TOLERATING WELL.ON TELE HR IS 78 WITH SR.CAN AMBULATE WELL WITH ONE PERSON ASSISTANCE.IV LINE IS ON RIGHT AC G20,IV SITE IS CLEAN,DRY AND INTACT,NO INFILTRATION NOTED.SAFETY IS MAINTAINED AT ALL TIMES.BED IS IN LOW POSITION AND LOCKED.CALL LIGHT IS WITHIN REACH.WILL CONTINUE TO MONITOR THE PT CLOSELY.
[2019-02-20 07:28] LABS: BASOPHILS # (AUTO) 0.1 /CMM (0.0-0.2); BASOPHILS % (AUTO) 1.2 % (0.0-2.0); EOSINOPHILS % (AUTO) 2.8 % (0.0-6.0); HEMATOCRIT 36 % (39-51); HEMOGLOBIN 12.2 g/dL (13.5-17.5); LYMPHOCYTES # (AUTO) 1.6 /CMM (0.8-4.8); LYMPHOCYTES % (AUTO) 21.8 % (20.0-44.0); MEAN CORPUSCULAR HGB CONC 34 g/dl (31.0-36.0); MEAN CORPUSCULAR VOLUME 87 fL (80-96); MONOCYTES # (AUTO) 0.7 /CMM (0.1-1.30); MONOCYTES % (AUTO) 9.2 % (2.0-12.0); NEUTROPHILS # (AUTO) 4.7 /CMM (1.8-8.9); PLATELET COUNT (AUTO) 265 /CMM (150-450); RED BLOOD CELL COUNT(AUTO) 4.07 MIL/uL (4.5-6.0); WHITE BLOOD COUNT (AUTO) 7.2 K/uL (4.3-11.0)
[2019-02-20 07:52] LABS: ALBUMIN 2.7 g/dL (3.4-5.0); BILIRUBIN,DIRECT 0.1 mg/dL (0.0-0.2); BILIRUBIN,TOTAL 0.4 mg/dL (0.2-1.0); CALCIUM, SERUM 6.4 mg/dL (8.5-10.1); MAGNESIUM 1.3 mg/dL (1.8-2.4); PHOSPHORUS 6.6 mg/dL (2.5-4.9); TOTAL PROTEIN, SERUM 6.5 g/dL (6.4-8.2)
[2019-02-20 07:55] LABS: CREATININE 9.9 mg/dL (0.6-1.3)
[2019-02-20 07:56] LABS: THYROID STIMULATING HORMONE 1.889 uIU/mL (0.358-3.74)
[2019-02-20] MEDS: BLOOD SUGAR DIAGNOSTIC 1 EACH STRIP IN SCH ×4 (08:11→21:23)
[2019-02-20] MEDS: APIXABAN 5 MG TABLET PO SCH ×2 (09:20→17:24)
[2019-02-20] MEDS: ASPIRIN 81 MG TAB.CHEW PO SCH (09:20)
[2019-02-20] MEDS: LEVETIRACETAM (250 MG) 250 MG TABLET PO SCH ×2 (09:20→21:22)
[2019-02-20] MEDS: PANTOPRAZOLE 40 MG TABLET.DR PO SCH (09:20)
--- NOTE | 2019-02-20 11:24 | NUR ---
OBJECT ORIENTED PROGRAMMER NOTES HEMODIALYSIS IS STARTED.NO COMPLICATIONS NOTED.
[2019-02-20] MEDS: INSULIN REGULAR, HUMAN 100 UNIT/ML 3 ML VIAL SQ PRN ×2 (12:21→17:23)
--- NOTE | 2019-02-20 16:56 | NUR ---
LINING SEWER NOTES KILN CAR REPAIRER CALLY BUCK ORDERED DILANTIN 100MG PO OD WITH KEEWA,PODIATRY CONSULTATION FOR B/L FOOT FUNGUS AND CHECK DILANTIN LEVEL IN AM PER FAMILY REQUEST.NEW ORDERS NOTED AND CARRIED OUT.
--- NOTE | 2019-02-20 18:02 | NUR ---
Spoke with Leslie -[phone],states patient currently homeless and living from hotel to hotels. States they lost their home and car and patient has high share of cost with his medical. Patient is ambulatory,requires min assist with adl's. He owns a walker and wheelchair. He receives hemodialysis every MWF 12 noon [facility] [phone]. His uses [employer] for transportation. Will provide ACCESS transportation info and refer to social work administrator for resources that may available for the patient and family. Addendum: 02/20/19 at 1810 by MICHAEL MASON RN Amended: Links added.
--- NOTE | 2019-02-20 18:54 | NUR ---
SUPERVISOR PUMPING STATION CLOSING NOTES PT IS LYING ON BED.ON ROOM AIR,TOLERATING WELL.NO SOB AND ACUTE DISTRESS NOTED.HD HAS DONE.VITAL SIGNS ARE STABLE.ALL DUE MEDS ARE GIVEN.NO SIGNIFICANT CHANGES NOTED IN THE SHIFT.ENDORSED TO STOCK REPAIRER RN FOR MARGOT.
--- NOTE | 2019-02-20 20:00 | NUR ---
RN INITIAL NOTES RECEIVED PT SITTING ON BED. ALERT/ORIENTED X2 WITH FORGETFUL. ON ROOM AIR,TOLERATING WELL. TELE RECENTLY D/C HR IS 85 WITH SR . IV LINE IS ON RIGHT AC G20,IV SITE IS CLEAN,DRY AND INTACT,NO INFILTRATION NOTED. SAFETY IS MAINTAINED AT ALL TIMES. BED IS IN LOW POSITION AND LOCKED. CALL LIGHT IS WITHIN REACH. WILL CONTINUE TO MONITOR CLOSELY.
--- NOTE | 2019-02-20 20:25 | NUR ---
Spoke with Leslie -[phone],states patient currently homeless and living from hotel to hotels. States they lost their home and car and patient has high share of cost with his medical insurance. Patient is ambulatory,requires min assist with adl's. He owns a walker and wheelchair. He receives hemodialysis every MWF 12 noon at [facility] [phone]. His renal doctor is Dr.William Betancourt [phone].His uses [employer] for transportation. Will provide ACCESS transportation info and refer to social worker health services for resources that may available for the patient and family. Offered SNF placement but refused, she want patient to return to the hotel when discharge. Addendum: 02/20/19 at 2025 by MICHAEL MASON RN Amended: Links added.
[2019-02-20] MEDS: ATORVASTATIN 10 MG TABLET PO SCH (21:22)
[2019-02-20] MEDS: INSULIN GLARGINE, 100 UNIT/ML CARTRIDGE SQ SCH (21:29)
[2019-02-21 04:00] VITALS: BP 132/82
--- NOTE | 2019-02-21 07:40 | NUR ---
RN CLOSING NOTES PT IS LYING ON BED.ON ROOM AIR,TOLERATING WELL.NO SOB AND ACUTE DISTRESS NOTED. VITAL SIGNS ARE STABLE. ALL DUE MEDS ARE GIVEN. NO SIGNIFICANT CHANGES NOTED IN THE SHIFT.ENDORSED TO AM SHIFT RN FOR MARGOT.
[2019-02-21] MEDS: BLOOD SUGAR DIAGNOSTIC 1 EACH STRIP IN SCH ×4 (07:50→21:35)
[2019-02-21] MEDS: PANTOPRAZOLE 40 MG TABLET.DR PO SCH (07:51)
[2019-02-21 08:00] VITALS: BP 128/80
[2019-02-21] MEDS: PHENYTOIN EXTENDED RELEASE 100 MG CAPSULE PO SCH (08:18)
[2019-02-21] MEDS: ASPIRIN 81 MG TAB.CHEW PO SCH (08:18)
[2019-02-21] MEDS: LEVETIRACETAM (250 MG) 250 MG TABLET PO SCH ×2 (08:18→21:26)
[2019-02-21] MEDS: APIXABAN 5 MG TABLET PO SCH ×2 (08:18→17:41)
[2019-02-21] MEDS: INSULIN REGULAR, HUMAN 100 UNIT/ML 3 ML VIAL SQ PRN ×2 (12:05→21:31)
[2019-02-21 16:00] VITALS: BP 130/72
[2019-02-21 20:00] VITALS: BP 115/69
--- NOTE | 2019-02-21 20:00 | NUR ---
RN INITIAL NOTES RECEIVED PT RESTING IN BED. ALERT/ORIENTED X2 WITH FORGETFUL. ON ROOM AIR,TOLERATING WELL . IV LINE IS ON RIGHT AC G20 S/L,IV SITE IS CLEAN,DRY AND INTACT,NO INFILTRATION NOTED. SAFETY IS MAINTAINED AT ALL TIMES. BED IS IN LOW POSITION AND LOCKED. CALL LIGHT IS WITHIN REACH. WILL CONTINUE TO MONITOR CLOSELY.
--- NOTE | 2019-02-21 20:30 | NUR ---
RN NOTES HD STARTED
[2019-02-21] MEDS: ATORVASTATIN 10 MG TABLET PO SCH (21:25)
[2019-02-21] MEDS: INSULIN GLARGINE, 100 UNIT/ML CARTRIDGE SQ SCH (21:30)
[2019-02-22 04:00] VITALS: BP 121/75
--- NOTE | 2019-02-22 06:54 | NUR ---
RN CLOSING NOTES PT ASLEEP IN BED.ON ROOM AIR,TOLERATING WELL.NO SOB AND ACUTE DISTRESS NOTED. VITAL SIGNS ARE STABLE. ALL DUE MEDS ARE GIVEN. NO SIGNIFICANT CHANGES NOTED IN THE SHIFT. HD COMPLETED 2L REMOVED. WILL ENDORSED TO AM SHIFT RN FOR MARGOT.
--- NOTE | 2019-02-22 07:15 | NUR ---
MS RN OPENING NOTES RECEIVED PT RESTING IN BED. ALERT/ORIENTED X1 WITH FORGETFUL. ON ROOM AIR,TOLERATING WELL. IV LINE IS ON RIGHT AC G20 S/L,IV SITE IS CLEAN,DRY AND INTACT,NO INFILTRATION NOTED. R CW HD ACCESS, SITE CDI. SAFETY PRECAUTIONS IN PLACE. BED IS IN LOW POSITION AND LOCKED. CALL LIGHT IS WITHIN REACH. WILL CONTINUE TO MONITOR CLOSELY.
[2019-02-22] MEDS: BLOOD SUGAR DIAGNOSTIC 1 EACH STRIP IN SCH ×3 (07:45→17:03)
[2019-02-22 08:00] VITALS: BP 136/75
[2019-02-22] MEDS: PHENYTOIN EXTENDED RELEASE 100 MG CAPSULE PO SCH (08:03)
[2019-02-22] MEDS: ASPIRIN 81 MG TAB.CHEW PO SCH (08:03)
[2019-02-22] MEDS: PANTOPRAZOLE 40 MG TABLET.DR PO SCH (08:03)
[2019-02-22] MEDS: APIXABAN 5 MG TABLET PO SCH ×2 (08:04→17:07)
[2019-02-22] MEDS: LEVETIRACETAM (250 MG) 250 MG TABLET PO SCH (08:04)
[2019-02-22 09:30] LABS: BASOPHILS # (AUTO) 0.1 /CMM (0.0-0.2); BASOPHILS % (AUTO) 1.1 % (0.0-2.0); EOSINOPHILS % (AUTO) 4.8 % (0.0-6.0); HEMATOCRIT 40 % (39-51); HEMOGLOBIN 13.7 g/dL (13.5-17.5); LYMPHOCYTES # (AUTO) 1.4 /CMM (0.8-4.8); MEAN CORPUSCULAR HGB CONC 35 g/dl (31.0-36.0); MEAN CORPUSCULAR VOLUME 86 fL (80-96); MONOCYTES # (AUTO) 0.8 /CMM (0.1-1.30); MONOCYTES % (AUTO) 12.3 % (2.0-12.0); NEUTROPHILS # (AUTO) 3.7 /CMM (1.8-8.9); NEUTROPHILS % (AUTO) 59.8 % (43.0-81.0); PLATELET COUNT (AUTO) 274 /CMM (150-450); RED BLOOD CELL COUNT(AUTO) 4.58 MIL/uL (4.5-6.0); WHITE BLOOD COUNT (AUTO) 6.2 K/uL (4.3-11.0)
[2019-02-22 09:37] LABS: CALCIUM, SERUM 7.4 mg/dL (8.5-10.1); CREATININE 6.8 mg/dL (0.6-1.3); POTASSIUM 3.8 mmol/L (3.5-5.1)
[2019-02-22] MEDS: INSULIN REGULAR, HUMAN 100 UNIT/ML 3 ML VIAL SQ PRN (12:04)
[2019-02-22] MEDS ORDERED: PHEN100C4 PO (12:10)
[2019-02-22 16:00] VITALS: BP 133/78
--- NOTE | 2019-02-22 19:10 | NUR ---
MS RN CLOSING NOTES PT SLEEPING IN BED, BUT EASY TO AROUSE. ALERT/ORIENTED X1 WITH FORGETFUL. ON ROOM AIR, TOLERATING WELL. IV LINE IS ON RIGHT AC G20 S/L, IV SITE IS CLEAN,D RY AND INTACT, NO INFILTRATION NOTED. R CW HD ACCESS, SITE CDI. SAFETY PRECAUTIONS PLACED THROUGHOUT SHIFT. BED IS IN LOW POSITION AND LOCKED. ALL MD ORDERS ATTENDED. EXIT CARE DONE. CALLED FOR PATIENT TURN OPERATOR, STATED "I'M JUST WAITING FOR MY RIDE." ENDORSED TO SUPERVISOR PAINT NURSE FOR MARGOT.
--- NOTE | 2019-02-22 20:26 | NUR ---
MS-1/INFORMATION TECHNOLOGY ADMINISTRATOR PTS WAS GIVEN DC INSTRUCTIONS AND INFORMATION WHEN TO FOLLOW UP AT THE CLINIC. PT WAS PROVIDED WITH A SHIRT AND TAXI VOUCHER FOR DC. PT ESCORTED TO THE HOSPITAL ENTRANCE BY DENTAL HYGIENE ADMINISTRATIVE ASSISTANT VIA WHEELCHAIR AND ASSISTED INTO THE TAXI. IV WAS REMOVED WITH CATH INTACT SITE BENIGN.
[2019-02-22 20:29] VITALS: BP 137/80
== END 2019-02-22 20:32 | disposition home or self-care (01) | DRG 640 ==
LOC: ER 11:28 → TELE1 13:41 → MEDSG1 02-20 22:01
PROVIDERS: ADMIT Nurse Practitioner Acute Care; ATTEND Nurse Practitioner Acute Care
PROC: 5A1D70Z Performance of Urinary Filtration, Intermittent, Less than 6 Hours Per Day (ICD-10-PCS; principal; 2019-02-20)
PROC: 5A1D70Z Performance of Urinary Filtration, Intermittent, Less than 6 Hours Per Day (ICD-10-PCS; 2019-02-21)
DX: E87.70 Fluid overload, unspecified (principal); N18.6 End stage renal disease; I13.2 Hypertensive heart and chronic kidney disease with heart failure and with stage 5 chronic kidney disease, or end stage renal disease; G93.40 Encephalopathy, unspecified; I50.32 Chronic diastolic (congestive) heart failure; E11.22 Type 2 diabetes mellitus with diabetic chronic kidney disease; I69.320 Aphasia following cerebral infarction; Z99.2 Dependence on renal dialysis; Z79.4 Long term (current) use of insulin; G40.909 Epilepsy, unspecified, not intractable, without status epilepticus; E78.5 Hyperlipidemia, unspecified; I25.10 Atherosclerotic heart disease of native coronary artery without angina pectoris; Z87.891 Personal history of nicotine dependence; D64.9 Anemia, unspecified; Z95.5 Presence of coronary angioplasty implant and graft; I69.322 Dysarthria following cerebral infarction; I25.2 Old myocardial infarction; K74.60 Unspecified cirrhosis of liver; Z79.82 Long term (current) use of aspirin
CPT/HCPCS: 36415; 71045-TC; 80048-TC; 80061-TC; 80076-TC; 80185-TC; 81000-TC; 82140-TC; 82962-TC; 83690-TC; 83735-TC; 83880; 84100-TC; 84443-TC; 84484-TC; 85025-TC; 86706; 86803; 87081-TC; 87086-TC; 87340; 90935-TC; 97116-TC; 97530-TC; G0378; J1815; J1940; J2405; J3490

== ENCOUNTER 2020-04-03 09:31 | Inpatient (IN) | payer MEDICARE, OTHER ==
[~2020-04-03] VITALS: Ht 172.7 cm; Wt 68.9 kg
[~2020-04-03 09:31] MED LIST changes: +PHEN100C4 PO
--- NOTE | 2020-04-03 09:37 | NUR ---
SEEN AND EXAMINED BY .
--- NOTE | 2020-04-03 09:40 | NUR ---
IV LINE ESTABLISHED BLOOD DRAWN AND SENT TO LAB.
[2020-04-03 09:56] LABS: BASOPHILS # (AUTO) 0.1 /CMM (0.0-0.2); BASOPHILS % (AUTO) 1.3 % (0.0-2.0); EOSINOPHILS % (AUTO) 3.3 % (0.0-6.0); HEMATOCRIT 36 % (39-51); HEMOGLOBIN 12.2 g/dL (13.5-17.5); LYMPHOCYTES # (AUTO) 1.8 /CMM (0.8-4.8); LYMPHOCYTES % (AUTO) 19.4 % (20.0-44.0); MEAN CORPUSCULAR HGB CONC 34 g/dl (31.0-36.0); MEAN CORPUSCULAR VOLUME 89 fL (80-96); MONOCYTES # (AUTO) 0.8 /CMM (0.1-1.30); NEUTROPHILS # (AUTO) 6.2 /CMM (1.8-8.9); PLATELET COUNT (AUTO) 328 /CMM (150-450); RED BLOOD CELL COUNT(AUTO) 4.07 MIL/uL (4.5-6.0); WHITE BLOOD COUNT (AUTO) 9.3 K/uL (4.3-11.0)
--- NOTE | 2020-04-03 10:08 | NUR ---
JUTE BAG CLIPPER AT BEDSIDE FOR XRAY.
[2020-04-03 10:14] LABS: SERUM AMMONIA 27 umol/L (11-32)
[2020-04-03 10:26] LABS: ALANINE AMINOTRANSFERASE 14 U/L (12-78); ALBUMIN 3.7 g/dL (3.4-5.0); ALKALINE PHOSPHATASE 73 U/L (46-116); ASPARTATE AMINOTRANSFERASE 14 U/L (15-37); BILIRUBIN,DIRECT 0.1 mg/dL (0.0-0.2); BILIRUBIN,TOTAL 0.4 mg/dL (0.2-1.0); CALCIUM, SERUM 8.8 mg/dL (8.5-10.1); CARBON DIOXIDE 21 mmol/L (21-32); CHLORIDE 105 mmol/L (98-107); GLUCOSE 129 mg/dL (74-106); POTASSIUM 5.8 mmol/L (3.5-5.1); SODIUM SERUM 145 mmol/L (136-145); TOTAL PROTEIN, SERUM 8.2 g/dL (6.4-8.2)
[2020-04-03 10:27] LABS: ALCOHOL, BLOOD < 3 mg/dL (0-0)
[2020-04-03 10:28] LABS: CREATININE 14.1 mg/dL (0.6-1.3); UREA NITROGEN, BLOOD 85 mg/dL (7-18)
--- NOTE | 2020-04-03 10:37 | NUR ---
BACK FROM CT SCAN
[2020-04-03] MEDS ORDERED: INSU100V10 SQ (10:38)
[2020-04-03] MEDS ORDERED: HYDR-4077 PO (10:38)
[2020-04-03] MEDS ORDERED: LAMO25TA5 PO ×2 (10:38)
[2020-04-03] MEDS ORDERED: LORA-259 PO (10:38)
[2020-04-03] MEDS ORDERED: SODIUM BICARBONATE SYR 50 MEQ/50 ML DISP.SYRIN IV ONE (11:00)
[2020-04-03] MEDS ORDERED: DEXTROSE 50%-WATER 50 ML DISP.SYRIN IV ONE (11:00)
[2020-04-03] MEDS ORDERED: INSULIN REGULAR, HUMAN 100 UNIT/ML 10 ML VIAL IV ONE (11:00)
[2020-04-03] MEDS ORDERED: SODIUM POLYSTYRENE SULFONATE 15 G/60 ML BOTTLE PO ONE (11:00)
[2020-04-03] MEDS ORDERED: CALCIUM CHLORIDE 1,000 MG/10 ML DISP.SYRIN IV ONE (11:00)
[2020-04-03] MEDS ORDERED: hydrALAZINE HCL IV 20 MG VIAL IV ONE (11:00)
--- NOTE | 2020-04-03 11:10 | NUR ---
PT HAS A INÉS CATH IN RU CHEST.
--- NOTE | 2020-04-03 11:10 | NUR ---
ASSUMED CARE OF PT FOR MARGOT. PT APPEARS CONFUSED. PT IS STANDING AT THE SIDE OF THE BED. PT WAS ASSISTED BACK TO BED. PT IS ON THE MONITOR AND POX. WILL CONTINUE TO MONITOR THE PT.
--- NOTE | 2020-04-03 11:15 | NUR ---
DR IVAN PRESENTED PT TO Cesar PARKS DNP.
[2020-04-03] MEDS ORDERED: hydrALAZINE HCL IV 20 MG VIAL ONE (11:18)
[2020-04-03] MEDS ORDERED: SODIUM POLYSTYRENE SULFONATE 15 G/60 ML BOTTLE ONE (11:19)
[2020-04-03] MEDS ORDERED: INSULIN REGULAR, HUMAN 100 UNIT/ML 10 ML VIAL ONE (11:19)
[2020-04-03] MEDS ORDERED: DEXTROSE 50%-WATER 50 ML DISP.SYRIN ONE (11:19)
[2020-04-03] MEDS ORDERED: SODIUM BICARBONATE SYR 50 MEQ/50 ML DISP.SYRIN ONE (11:19)
[2020-04-03] MEDS ORDERED: CALCIUM CHLORIDE 1,000 MG/10 ML DISP.SYRIN ONE (11:20)
[2020-04-03 11:28] LABS: THYROID STIMULATING HORMONE 2.735 uIU/mL (0.358-3.74)
--- NOTE | 2020-04-03 11:32 | NUR ---
PT REC'D MEDICATION ORDERED.
--- NOTE | 2020-04-03 11:44 | NUR ---
MD IS AWARE THAT PT HAS NOT GIVEN A URINE SAMPLE AT THIS TIME.
--- NOTE | 2020-04-03 11:56 | NUR ---
CALLING REPORT TO TELE NURSE. ANA QUIÑONES.
--- NOTE | 2020-04-03 12:00 | NUR ---
KAYEXELATE HELD DUE TO VOMITTING.
--- NOTE | 2020-04-03 12:00 | NUR ---
EPISODE OF VOMITING NOTED, MADE MD AWARE, RECEIVED VERBAL ORDER OF ZOFRAN 4MG IVP AND NS 250ML IVPB FROM DR IVAN. CARRIED OUT.
[2020-04-03] MEDS ORDERED: ONDANSETRON HCL/PF 4 MG/2 ML VIAL ONE (12:03)
[2020-04-03] MEDS ORDERED: NORMAL SALINE 10 ML DISP.SYRIN IV ONE (12:30)
--- NOTE | 2020-04-03 12:50 | NUR ---
AIR POLLUTION AUDITORHEAD START ASSISTANT TEACHER NOTES RECEIVED PT FROM ER DEPT AT 1235 VIA [employer]. PT AWAKE, A/OX1, CONFUSED. PT ABLE TO WALK WITH ASSISTANCE FROM GURNEY TO INSIDE THE ROOM BY THE BED. PT TOLERATING RA, WITH NO ACUTE RESPIRATORY DISTRESS NOTED. HOOKED TO TELEMONITORING, ST 107 NOTED, PT DENIES ANY CHEST PAIN OR ANY DISCOMFORT AT THIS TIME. PT HAS IVF NS 250ML TO LAC G20; ONGOING BOLUS FROM ER, INTACT AND OPERATIONAL. RIGHT UPPER CHEST INÉS CATH FOR HD ACCESS NOTED. PT UNABLE TO GIVE HISTORY D/T MENTAL STATUS. RN SPOKE TO SPOUSE/MARTHA VIA PHONE AND ABLE TO PROVIDE BRIEF MED HISTORY. PT REFUSED SKIN ASSESSMENT AND TO CHANGE TO HOSPITAL HOWN PER UNIT PROTOCOL AND SPOUSE MADE AWARE WELL. SPOUSE/MARTHA WISHES NOT TO ALTER HOME MEDS, RN PUTS NOTE AND WILL ENDORSE TO INCOMING NURSE AND CHARGE NURSE WELL. PT ORIENTED TO ROOM, CALL ANGELES, MEAL TIMES, ETC. PT KEPT COMFORTABLE IN BED. CALL LIGHT KEPT WITHIN REACH. PT'S BED IN LOWEST, LOCKED POSITION WITH SRX3. WILL CONTINUE PLAN OF CARE.
[2020-04-03 13:00] VITALS: BP 174/99
--- NOTE | 2020-04-03 13:00 | NUR ---
SECURITY INFRASTRUCTURE ENGINEER NOTES PAGED ADMITTING/TS REGARDING ADMISSION ORDERS. AND RESPONDED FOR RENAL DIET ORDER. AWAITING FOR THE REST OF THE ORDERS. WILL CONTINUE TO MONITOR.
--- NOTE | 2020-04-03 13:30 | NUR ---
TRACK MANAGER NOTES SPOKE TO /MARTHA VIA PHONE. PER MARTHA PT HAS NO OPEN SORES OR WOUNDS BUT HAD HISTORY OF BED SORES A YEAR AGO. PT STILL REFUSED TO DO SKIN ASSESSMENT. SPOUSE IS AWARE.
--- NOTE | 2020-04-03 14:00 | NUR ---
SPECIAL POLICE NOTES PT HAS EPISODES OF GETTING OUT OF BED UNATTENDED AND VERBALIZING WANTS TO GO HOME. PT ASSISTED BACK TO THE BED IN PREPARATION FOR HD. WILL CONTINUE TO MONITOR.
[2020-04-03 14:15] VITALS: BP 170/90
--- NOTE | 2020-04-03 14:15 | NUR ---
DIRECTOR OF RETAIL OPERATIONS NOTES PT JUST STARTED BEING DIALYZE. PT ON TELEMONITORING WIT ST 110, PT DENIES ANY PAIN OR DISCOMFORT AT THIS TIME. WILL CONTINUE TO MONITOR.
[2020-04-03 15:30] VITALS: BP 110/50
[2020-04-03 16:00] VITALS: BP 110/60
--- NOTE | 2020-04-03 16:02 | NUR ---
DIRECTOR TITLE NOTES HD JUST ENDED. 1L OUT. VITALS TAKEN AND RECORDED. DIALYSIS NURSE/BILL REPLACED DRESSING FOR RUC INÉS CATH. WILL CONTINUE TO MONITOR.
--- NOTE | 2020-04-03 18:20 | NUR ---
DOCENT COORDINATOR NOTES CHARGE NURSE/JOYCE CALLED TO NURSING SUP FOR POSSIBLE SITTER. PT RESTLESS AND DOESN'T WANT TO STAY I THE ROOM. JUST WANTS TO WALK AROUND. PT'S GAIT UNSTEADY, NEEDS ASSISTANCE. WILL ENDORSE TO INCOMING NIGHT NURSE WELL.
[2020-04-03] MEDS ORDERED: DEXTROSE 50%-WATER 50 ML DISP.SYRIN IV PRN (18:30)
[2020-04-03] MEDS ORDERED: ACETAMINOPHEN 325 MG TABLET PO PRN (18:30)
[2020-04-03] MEDS ORDERED: LORAZEPAM 1 MG TABLET PO PRN (18:30)
[2020-04-03] MEDS ORDERED: Z GUARD REMEDY 2 OZ OINT TP PRN (18:30)
[2020-04-03] MEDS ORDERED: ONDANSETRON HCL/PF 4 MG/2 ML VIAL IVP PRN (18:30)
--- NOTE | 2020-04-03 18:34 | NUR ---
MS RN NOTES ADMITTING HOSPITALIST/DNP/TS PLACED ADMISSION ORDERS. PT ON MEDSURG, REMOVED TELE. CHARGE NURSE/JOYCE MADE AWARE WELL. WILL ENDORSE TO INCOMING NIGHT NURSE WELL.
[2020-04-03] MEDS: BLOOD SUGAR DIAGNOSTIC 1 EACH STRIP IN SCH ×2 (18:45→21:17)
[2020-04-03] MEDS: INSULIN REGULAR, HUMAN 100 UNIT/ML 3 ML VIAL SQ PRN (18:46)
--- NOTE | 2020-04-03 18:50 | NUR ---
RN NOTES BLOOD SUGAR CHECK 251, GAVE REGULAR INSULIN 6UNITS PER SLIDING SCALE COVERAGE. WILL CONTINUE TO MONITOR.
--- NOTE | 2020-04-03 18:54 | NUR ---
CHEESEMAKING LABORER NOTES PER CHARGE NURSE/JOYCE, KEEP PT ON TELE OBSERVATION, D/T HIGH POTASSIUM. BMP TO RECHACK IN AM. F/U WITH MD RANGEL WELL. WILL ENDORSE TO INCOMING NIGHT NURSE WELL.
--- NOTE | 2020-04-03 18:57 | NUR ---
POULTRY VETERINARIAN CLOSING NOTES PT AWAKE, BY THE NURSE'S STATION IN A WHEELCHAIR. A/OX1, CONFUSED. PT ABLE TO WALK WITH ASSISTANCE. ON TELEMONITORING, ST 104 NOTED, PT DENIES ANY CHEST PAIN OR ANY DISCOMFORT AT THIS TIME. PIV TO LAC G20, FLUSHED WITH NS, INTACT AND OPERATIONAL. RIGHT UPPER CHEST INÉS CATH FOR HD ACCESS NOTED. PT KEPT COMFORTABLE. ALL NEEDS AND CARE ATTENDED. CALL LIGHT KEPT WITHIN REACH. PT'S BED IN LOWEST, LOCKED POSITION WITH SRX3. WILL ENDORSE TO INCOMING NIGHT NURSE FOR MARGOT.
[2020-04-03 20:00] VITALS: BP 161/92
[2020-04-03] MEDS ORDERED: INSULIN GLARGINE, 100 UNIT/ML CARTRIDGE SQ SCH (22:00)
--- NOTE | 2020-04-04 06:10 | NUR ---
MS RN NOTES AWAKE & RESPONSIVE. NOT IN ANY DISTRESS. NO SOB NOTED. DENIES ANY PAIN OR DISCOMFORT AT THIS TIME. WITH IV-HL PATENT & INTACT. MONITORED ACCORDINGLY. CALL LIGHT WITHIN REACH. BED IN LOWEST POSITION. SR UP X 3 WITH BED ALARM ON FOR SAFETY. WILL ENDORSE TO NEXT SHIFT.
[2020-04-04 06:49] LABS: BASOPHILS # (AUTO) 0.1 /CMM (0.0-0.2); BASOPHILS % (AUTO) 0.7 % (0.0-2.0); EOSINOPHILS % (AUTO) 1.5 % (0.0-6.0); HEMATOCRIT 36 % (39-51); HEMOGLOBIN 11.9 g/dL (13.5-17.5); LYMPHOCYTES # (AUTO) 1.4 /CMM (0.8-4.8); LYMPHOCYTES % (AUTO) 18.2 % (20.0-44.0); MEAN CORPUSCULAR HGB CONC 33 g/dl (31.0-36.0); MEAN CORPUSCULAR VOLUME 88 fL (80-96); MONOCYTES # (AUTO) 0.9 /CMM (0.1-1.30); MONOCYTES % (AUTO) 11.1 % (2.0-12.0); NEUTROPHILS # (AUTO) 5.3 /CMM (1.8-8.9); NEUTROPHILS % (AUTO) 68.5 % (43.0-81.0); PLATELET COUNT (AUTO) 311 /CMM (150-450); RED BLOOD CELL COUNT(AUTO) 4.03 MIL/uL (4.5-6.0); WHITE BLOOD COUNT (AUTO) 7.8 K/uL (4.3-11.0)
[2020-04-04 06:51] LABS: CALCIUM, SERUM 9.1 mg/dL (8.5-10.1); MAGNESIUM 2.2 mg/dL (1.8-2.4); PHOSPHORUS 7.1 mg/dL (2.5-4.9); POTASSIUM 4.9 mmol/L (3.5-5.1)
[2020-04-04] MEDS: BLOOD SUGAR DIAGNOSTIC 1 EACH STRIP IN SCH ×3 (06:51→17:34)
[2020-04-04 06:55] LABS: CREATININE 10.4 mg/dL (0.6-1.3)
--- NOTE | 2020-04-04 07:54 | NUR ---
rn notes patient received on room air, no sob noted, patient denies pain at this time. 1L out for HD yesterday. 1;1 sitter present at bedside. patient comfortable on his bed. Bed at the lowest setting, call light within reach, side rails up x2.
[2020-04-04 08:00] VITALS: BP 146/74
[2020-04-04] MEDS ORDERED: LamoTRIgine 25 MG TABLET PO SCH ×2 (09:00→18:00)
[2020-04-04 16:00] VITALS: BP 143/73
[2020-04-04 17:12] VITALS: BP 143/73
[2020-04-04] MEDS: INSULIN REGULAR, HUMAN 100 UNIT/ML 3 ML VIAL SQ PRN (17:31)
[2020-04-04] MEDS ORDERED: hydrALAZINE HCL 50 MG TABLET PO SCH (18:00)
--- NOTE | 2020-04-04 18:26 | NUR ---
rn notes patient to be picked up at 1999. IV line remains in place just in case patient needs IV medication. Paperwork signed by 2 RN's.
--- NOTE | 2020-04-04 19:30 | NUR ---
MS RN OPENING NOTES PATIENT SLEEPING IN BED, EASY TO AWAKEN. A/OX1-2. ON RA. NO S/S OF ACUTE RESPIRATORY DISTRESS OR C/O PAIN AT THIS TIME. IV PRESENT ON LEFT AC, SIZE 20, INTACT & PATENT, HEP LOCKED. PATIENT TO BE DISCHARGED AT 1999; AWAITING FOR FAMILY TO SUMMER CHILD CAREGIVER. DISCHARGE INSTRUCTIONS/PACKET COMPLETED BY DAY SHIFT RN. SAFETY MEASURES IN PLACE AND PATIENT'S NEEDS MET. BED LOCKED, ALARM ON, SIDE RAILS X2, CALL LIGHT WITHIN REACH. WILL CONTINUE TO MONITOR.
--- NOTE | 2020-04-04 21:10 | NUR ---
RN NOTES PATIENT WAS PICKED UP BY IN MAIN LOBBY. IV IN L AC WAS REMOVED, BELONGINGS WAS DONE. BROUGHT DOWN VIA WHEELCHAIR BY BOLOGNA LACER.
== END 2020-04-04 21:14 | disposition home or self-care (01) | DRG 291 ==
LOC: ER 09:36 → TELE 12:04 → MED 20:32
PROVIDERS: ADMIT Nurse Practitioner Acute Care; ATTEND Nurse Practitioner Acute Care
PROC: 5A1D70Z Performance of Urinary Filtration, Intermittent, Less than 6 Hours Per Day (ICD-10-PCS; principal; 2020-04-03)
DX: I13.2 Hypertensive heart and chronic kidney disease with heart failure and with stage 5 chronic kidney disease, or end stage renal disease (principal); N18.6 End stage renal disease; I50.33 Acute on chronic diastolic (congestive) heart failure; G93.49 Other encephalopathy; E11.22 Type 2 diabetes mellitus with diabetic chronic kidney disease; Z99.2 Dependence on renal dialysis; Z91.15 Patient's noncompliance with renal dialysis; E87.5 Hyperkalemia; I25.2 Old myocardial infarction; I25.10 Atherosclerotic heart disease of native coronary artery without angina pectoris; E78.5 Hyperlipidemia, unspecified; Z79.4 Long term (current) use of insulin; Z95.5 Presence of coronary angioplasty implant and graft; Z87.891 Personal history of nicotine dependence; K74.60 Unspecified cirrhosis of liver; G40.909 Epilepsy, unspecified, not intractable, without status epilepticus; I69.322 Dysarthria following cerebral infarction; I69.320 Aphasia following cerebral infarction; R40.2412 Glasgow coma scale score 13-15, at arrival to emergency department; G93.89 Other specified disorders of brain; D64.9 Anemia, unspecified
CPT/HCPCS: 36415; 70450-TC; 71045-TC; 80048-TC; 80061-TC; 80076-TC; 82140-TC; 82962-TC; 83605-TC; 83735-TC; 84100-TC; 84443-TC; 85025-TC; 85730-TC; 86706; 87040-TC; 87081-TC; 87340; 90935-TC; G0378; G0480; J0360; J1815; J2405; J3490; J7050

== ENCOUNTER 2020-04-30 22:01 | Inpatient (IN) | payer MEDICARE, OTHER ==
[~2020-04-30] VITALS: Ht 177.8 cm; Wt 53.5 kg
[~2020-04-30 22:01] MED LIST changes: -APIX5TAB PO; -ASPI-1169 PO; -ATOR10TA PO; +HYDR-4077 PO; +INSU100V10 SQ; -INSU3INS6 SQ; +LAMO25TA5 PO; -LEVE500T9 PO; +LORA-259 PO; -PANT40TA2 PO; -PHEN100C4 PO
--- NOTE | 2020-04-30 22:12 | NUR ---
PATIENT CAME TO ER BED 9 BIB RA C/O MORE ALTERED THAN USUAL. PATIENT'S STATES THAT HE HAS HISTORY OF DEMENTIA AND HAS BEEN VOMITING AND HAVING DIARRHEA FOR THE PAST MONTHS. PATIENT IS SELECTIVE WITH WHEN HE WANTS TO SPEAK. PATIENT IS ALERT AND AWAKE. PERRL PRESENT. PATIENT IS BREATHING EVENLY AND UNLABORED ON ROOM AIR. CONNECTED TO MONITOR.
--- NOTE | 2020-04-30 22:33 | NUR ---
WELFARE ELIGIBILITY INTERVIEWER AT BEDSIDE FOR LABS.
[2020-04-30 22:48] LABS: BASOPHILS # (AUTO) 0.1 /CMM (0.0-0.2); BASOPHILS % (AUTO) 0.7 % (0.0-2.0); EOSINOPHILS % (AUTO) 1.4 % (0.0-6.0); HEMATOCRIT 38 % (39-51); HEMOGLOBIN 12.4 g/dL (13.5-17.5); LYMPHOCYTES # (AUTO) 1.8 /CMM (0.8-4.8); LYMPHOCYTES % (AUTO) 14.1 % (20.0-44.0); MEAN CORPUSCULAR HGB CONC 33 g/dl (31.0-36.0); MEAN CORPUSCULAR VOLUME 89 fL (80-96); MONOCYTES # (AUTO) 1.1 /CMM (0.1-1.30); MONOCYTES % (AUTO) 8.5 % (2.0-12.0); NEUTROPHILS # (AUTO) 9.6 /CMM (1.8-8.9); NEUTROPHILS % (AUTO) 75.3 % (43.0-81.0); PLATELET COUNT (AUTO) 323 /CMM (150-450); RED BLOOD CELL COUNT(AUTO) 4.25 MIL/uL (4.5-6.0); WHITE BLOOD COUNT (AUTO) 12.7 K/uL (4.3-11.0)
[2020-04-30 23:11] LABS: SERUM AMMONIA 18 umol/L (11-32)
[2020-04-30 23:19] LABS: ALANINE AMINOTRANSFERASE 11 U/L (12-78); ALBUMIN 3.2 g/dL (3.4-5.0); ALCOHOL, BLOOD < 3 mg/dL (0-0); ALKALINE PHOSPHATASE 74 U/L (46-116); ASPARTATE AMINOTRANSFERASE 10 U/L (15-37); BILIRUBIN,DIRECT 0.1 mg/dL (0.0-0.2); BILIRUBIN,TOTAL 0.4 mg/dL (0.2-1.0); CALCIUM, SERUM 8.1 mg/dL (8.5-10.1); CARBON DIOXIDE 27 mmol/L (21-32); CHLORIDE 100 mmol/L (98-107); GLUCOSE 107 mg/dL (74-106); POTASSIUM 4.6 mmol/L (3.5-5.1); SODIUM SERUM 141 mmol/L (136-145); TOTAL PROTEIN, SERUM 7.3 g/dL (6.4-8.2)
--- NOTE | 2020-04-30 23:19 | NUR ---
URINE, GUAIAC CARD COLLECTED AND SENT WITH EMT/PARAMEDIC
--- NOTE | 2020-04-30 23:20 | NUR ---
MOTION PICTURE SET GRIP AT BEDSIDE FOR 2ND BLOOD DRAW
[2020-04-30 23:21] LABS: UREA NITROGEN, BLOOD 84 mg/dL (7-18)
[2020-04-30 23:22] LABS: CREATININE 16.1 mg/dL (0.6-1.3); SALICYLATE 1.9 mg/dL (2.8-20.0)
[2020-04-30 23:23] LABS: ACETAMINOPHEN 0 ug/ml (10-30)
[2020-04-30 23:28] LABS: APPEARANCE,URINE Clear (CLEAR); BILIRUBIN,URINE Negative (NEGATIVE); BLOOD, URINE Negative Ery/uL (NEGATIVE); COLOR,URINE Yellow (YELLOW); KETONES,URINE Negative (NEGATIVE); LEUKOCYTE ESTERASE ,URINE Negative (NEGATIVE); NITRITE, URINE Negative (NEGATIVE); PH,URINE 8.5 (5.0-8.0); PROTEIN,URINE >=300 mg/dl (NEGATIVE); UGLUCOSE 100 MG/DL mg/dL (NEGATIVE); UROBILINOGEN,URINE 0.2 EU/dL (0.2)
[2020-04-30 23:42] LABS: BACTERIA,URINE Few /HPF (None Seen); SQUAMOUS EPITHELIAL CELL,UR Few /HPF (None Seen); WBC,URINE 0-2 /HPF (0-3)
--- NOTE | 2020-04-30 23:44 | NUR ---
PATIENT IS GIVEN A BED BATH. PATIENT CHANGED INTO NEW GOWN.
--- NOTE | 2020-04-30 23:45 | NUR ---
CALLED HOUSE SUP FOR BED
--- NOTE | 2020-04-30 23:46 | NUR ---
DR. ZIMMERMAN SPEAKING WITH DR. LONG
[2020-05-01] VITALS (8 sets, daily range): BP systolic 112–162; BP diastolic 59–82
[2020-05-01] MEDS ORDERED: Z GUARD REMEDY 2 OZ OINT TP PRN
[2020-05-01] MEDS ORDERED: DEXTROSE 50%-WATER 50 ML DISP.SYRIN IV PRN
[2020-05-01] MEDS ORDERED: MAGNESIUM HYDROXIDE 30 ML UDC PO PRN
[2020-05-01] MEDS ORDERED: HYDROCODONE/APAP 5/325MG TABLET PO PRN
[2020-05-01] MEDS ORDERED: ACETAMINOPHEN 325 MG TABLET PO PRN
[2020-05-01] MEDS ORDERED: ZOLPIDEM TARTRATE 5 MG TABLET PO PRN
--- NOTE | 2020-05-01 00:07 | NUR ---
BED ASSIGNMENT 312-1
--- NOTE | 2020-05-01 00:45 | NUR ---
RN NOTES RECEIVED REPORT FROM ANA TAFOYA; AWAITING PATIENT ARRIVAL TO UNIT
--- NOTE | 2020-05-01 00:46 | NUR ---
REPORT GIVEN TO JULIET PEREZ FOR MARGOT.
--- NOTE | 2020-05-01 01:02 | NUR ---
PATIENT SENT TO ADMITTED ROOM.
--- NOTE | 2020-05-01 01:15 | NUR ---
GREEN CHAIN OFF BEARER OPENING/ADMITTING NOTES PATIENT ARRIVED TO UNIT 0100, ACCOMPANIED BY ER STAFF; PATIENT AWAKE, A/OX1, PATIENT NON-COMPLIANT PER ER; PATIENT SPEAKS ONLY WHEN HE FEELS LIKE IT; UNABLE TO OBTAIN INFORMATION FROM PATIENT; ER SPOKE WITH AND RELAYED MEDICAL HISTORY; BREATHING EVEN AND UNLABORED; PATIENT TOLERATING ROOM AIR WELL; PATIENT HAS SURGICAL MASK ON, PATIENT IS HAS SLIGHT COUGH; NO SOB NOTED; TELE MONITOR ATTACHED AND READS NSR 83BPM; PATIENT DOES NOT LIKE TO BE TOUCHED; SKIN INTACT; R WRIST #20 SL INTACT AND PATENT, FLUSHING WELL, NO S/S OF REDNESS OR INFILTRATION NOTED; R CHEST HOLDEN CATH PRESENT; SAFETY PRECAUTIONS IMPLEMENTED; BED LOCKED IN LOW POSITION; SIDE RAILS X2; CALL LIGHT WITHIN REACH; WILL CONT TO MONITOR; AWAITING ADMISSION ORDERS; CHARGE NURSE AWARE
--- NOTE | 2020-05-01 02:49 | NUR ---
FUR TRIMMER NOTES PATIENT SLEEPING IN BED COMFORTABLY; EASILY AROUSED; WILL CONT TO MONITOR
--- NOTE | 2020-05-01 03:45 | NUR ---
SANITATION MANAGER NOTES PATIENT VTE SCORE OF 2; MECHANICAL PROPHYLAXIS ORDERED; PATIENT REFUSING; RISKS AND BENEFITS DISCUSSED AND REVIEWED WITH PATIENT; PATIENT CONFUSED (A/OX1) AND DOES NOT WANT TO BE TOUCHED/BOTHERED; NO CHEMICAL PROPHYLAXIS ORDERED AT THIS TIME; PATIENT ADMITTED FOR LOWER GI BLEED; PATIENT HAS TARRY STOOLS PER ER STAFF; H/H: ., WILL CONT TO MONITOR
--- NOTE | 2020-05-01 05:41 | NUR ---
PARTNERSHIP MANAGER NOTES SPOKE WITH ANA TAFOYA FROM ER; MICHELET REPORTED MRSA SWAB DONE IN ER; CHARGE NURSE AWARE; WILL CONT TO MONITOR
[2020-05-01] MEDS: BLOOD SUGAR DIAGNOSTIC 1 EACH STRIP IN SCH ×4 (06:30→21:45)
--- NOTE | 2020-05-01 06:30 | NUR ---
REPAIRER TYPEWRITER CLOSING NOTES PATIENT A/OX1; CONFUSED; PATIENT SCREAMS NO WHEN HE DOES NOT WANT TO DO THINGS; PATIENT REFUSED SKIN ASSESSMENT AND ACCU CHECK; RISKS AND BENEFITS DISCUSSED AND REVIEWED WITH PATIENT; PATIENT NON-COMPLIANT; PATIENT REFUSED TO BE CHANGED, YELLED, "NO! NO! NO!"; BREATHING EVEN AND UNLABORED; NO SOB NOTED; PATIENT TOLERATING ROOM AIR WELL; TELE MONITOR ATTACHED READS NSR 80BPM; R WRIST #20 SL INTACT AND PATENT, FLUSHING WELL, NO S/S OF REDNESS OR INFILTRATION NOTED; R CHEST PORTACATH PRESENT; ALL NEEDS RENDERED; SAFETY PRECAUTIONS IMPLEMENTED; BED LOCKED IN LOW POSITION; SIDE RAILS X2; CALL LIGHT WITHIN REACH; WILL ENDORSE MARGOT TO ONCOMING SHIFT
--- NOTE | 2020-05-01 07:58 | NUR ---
MS/RN Opening note Patient received from shift production supervisor. Refusing to answer any questions or talk, verbally aggressive when asked anything. Does not appear in any distress at th is time. Call light within reach, will continue to monitor and ensure safety.
[2020-05-01 08:17] LABS: BASOPHILS # (AUTO) 0.1 /CMM (0.0-0.2); BASOPHILS % (AUTO) 0.6 % (0.0-2.0); EOSINOPHILS % (AUTO) 1.9 % (0.0-6.0); HEMATOCRIT 36 % (39-51); HEMOGLOBIN 11.9 g/dL (13.5-17.5); LYMPHOCYTES % (AUTO) 18.4 % (20.0-44.0); MEAN CORPUSCULAR HGB CONC 33 g/dl (31.0-36.0); MEAN CORPUSCULAR VOLUME 88 fL (80-96); MONOCYTES % (AUTO) 9.4 % (2.0-12.0); NEUTROPHILS # (AUTO) 7.7 /CMM (1.8-8.9); NEUTROPHILS % (AUTO) 69.7 % (43.0-81.0); PLATELET COUNT (AUTO) 316 /CMM (150-450); RED BLOOD CELL COUNT(AUTO) 4.07 MIL/uL (4.5-6.0); WHITE BLOOD COUNT (AUTO) 11.1 K/uL (4.3-11.0)
[2020-05-01 08:36] LABS: CALCIUM, SERUM 7.9 mg/dL (8.5-10.1); MAGNESIUM 2.1 mg/dL (1.8-2.4); PHOSPHORUS 7.4 mg/dL (2.5-4.9); POTASSIUM 4.8 mmol/L (3.5-5.1)
[2020-05-01 08:37] LABS: CREATININE 15.9 mg/dL (0.6-1.3)
[2020-05-01] MEDS: LamoTRIgine 25 MG TABLET PO SCH ×2 (08:43→18:39)
[2020-05-01] MEDS ORDERED: PANTOPRAZOLE 40 MG TABLET.DR PO ONE (09:00)
--- NOTE | 2020-05-01 09:00 | NUR ---
MS/RN Labs Morning labs reviewed: -BUN - 80 -Creat - 15.9
--- NOTE | 2020-05-01 10:00 | NUR ---
MS/RN S/B Dr Fagan Seen by Dr Fagan - dialysis and morning labs ordered. All home medications restarted.
[2020-05-01] MEDS: METOPROLOL SUCCINATE 25 MG TAB.SR.24H PO SCH (10:30)
--- NOTE | 2020-05-01 11:43 | NUR ---
MS/RN Blood sugar Blood sugar 157, insulin as per sliding scale.
--- NOTE | 2020-05-01 17:02 | NUR ---
Pt is undergoing hemodialysis, held BP med hydralazine at this time.
[2020-05-01] MEDS: INSULIN GLARGINE, 100 UNIT/ML CARTRIDGE SQ SCH (18:42)
--- NOTE | 2020-05-01 20:00 | NUR ---
MS/RN OPENING NOTES PATIENT A/OX1; CONFUSED; BREATHING EVEN AND UNLABORED; NO SOB NOTED; PATIENT TOLERATING ROOM AIR WELL; R WRIST #20 SL INTACT AND PATENT, FLUSHING WELL, NO S/S OF REDNESS OR INFILTRATION NOTED; R CHEST PORTACATH PRESENT; ALL NEEDS RENDERED; SAFETY PRECAUTIONS IMPLEMENTED; BED LOCKED IN LOW POSITION; SIDE RAILS X2; CALL LIGHT WITHIN REACH; HD ONGOING RIGHT NOW. HYDRALAZINE 50MG ENDORSED BY DAYSHIFT RN MISHA HACKETT. TO BE GIVEN WHEN DIALYSIS IS DONE. WILL CONTINUE TO MONITOR PT ACCORDINGLY.
[2020-05-01] MEDS: hydrALAZINE HCL 50 MG TABLET PO SCH (20:50)
--- NOTE | 2020-05-01 20:54 | NUR ---
MS/RN NOTES: PT IS S/P HD. TOTAL OF 500ML OUT. CURRENT BP 80/59 HR:83. HYDRALAZINE 50MG HELD
--- NOTE | 2020-05-01 21:11 | NUR ---
MS/RN NOTES: RETOOK PT BP. VSS STABLE. BP:112/59 HR:81. PT STABLE. WILL CONTINUE TO MONITOR.
[2020-05-01] MEDS: ATORVASTATIN 40 MG TABLET PO SCH (21:42)
[2020-05-01] MEDS: QUETIAPINE FUMARATE 25 MG TABLET PO SCH (21:42)
[2020-05-01] MEDS: INSULIN REGULAR, HUMAN 100 UNIT/ML 3 ML VIAL SQ PRN (21:51)
--- NOTE | 2020-05-02 06:06 | NUR ---
MS/RN NOTES: PT IS NON COMPLIANT WITH CARE. REFUSES TO BE CHANGED, TURNED AND REPOSITION. EXPLAINED RISKS AND BENEFITS X3. PT IGNORED AND STILL REFUSES. WILL CONTINUE TO MONITOR.
[2020-05-02] MEDS: BLOOD SUGAR DIAGNOSTIC 1 EACH STRIP IN SCH ×4 (06:38→21:30)
--- NOTE | 2020-05-02 06:55 | NUR ---
MS/RN CLOSING NOTES PATIENT A/OX1; CONFUSED; NON COMPLIANT. BREATHING EVEN AND UNLABORED; NO SOB NOTED; PATIENT TOLERATING ROOM AIR WELL; R WRIST #20 SL INTACT AND PATENT, FLUSHING WELL, NO S/S OF REDNESS OR INFILTRATION NOTED; R CHEST PORTACATH PRESENT; ALL NEEDS RENDERED; SAFETY PRECAUTIONS IMPLEMENTED; BED LOCKED IN LOW POSITION; SIDE RAILS X2; CALL LIGHT WITHIN REACH; PT REFUSED REPOSITIONING, AND PATIENT CARE SUCH CHANGING SHEETS. WILL ENDORSE TO DAY SHIFT FOR MARGOT.
[2020-05-02 08:00] VITALS: BP 124/70
[2020-05-02 08:41] LABS: BASOPHILS # (AUTO) 0.1 /CMM (0.0-0.2); BASOPHILS % (AUTO) 0.8 % (0.0-2.0); EOSINOPHILS % (AUTO) 2.6 % (0.0-6.0); HEMATOCRIT 37 % (39-51); HEMOGLOBIN 12.2 g/dL (13.5-17.5); LYMPHOCYTES # (AUTO) 1.3 /CMM (0.8-4.8); LYMPHOCYTES % (AUTO) 16.7 % (20.0-44.0); MEAN CORPUSCULAR HGB CONC 33 g/dl (31.0-36.0); MEAN CORPUSCULAR VOLUME 88 fL (80-96); MONOCYTES # (AUTO) 0.9 /CMM (0.1-1.30); MONOCYTES % (AUTO) 11.6 % (2.0-12.0); NEUTROPHILS # (AUTO) 5.4 /CMM (1.8-8.9); NEUTROPHILS % (AUTO) 68.3 % (43.0-81.0); PLATELET COUNT (AUTO) 328 /CMM (150-450); RED BLOOD CELL COUNT(AUTO) 4.21 MIL/uL (4.5-6.0); WHITE BLOOD COUNT (AUTO) 7.9 K/uL (4.3-11.0)
[2020-05-02] MEDS: LamoTRIgine 25 MG TABLET PO SCH ×2 (09:32→17:36)
[2020-05-02] MEDS: METOPROLOL SUCCINATE 25 MG TAB.SR.24H PO SCH (09:32)
[2020-05-02 11:19] LABS: BILIRUBIN,TOTAL 0.3 mg/dL (0.2-1.0); CALCIUM, SERUM 8.5 mg/dL (8.5-10.1); MAGNESIUM 2.1 mg/dL (1.8-2.4); POTASSIUM 4.8 mmol/L (3.5-5.1); TOTAL PROTEIN, SERUM 7.5 g/dL (6.4-8.2)
[2020-05-02 11:21] LABS: CREATININE 10.7 mg/dL (0.6-1.3)
[2020-05-02] MEDS: INSULIN REGULAR, HUMAN 100 UNIT/ML 3 ML VIAL SQ PRN ×2 (12:35→21:33)
--- NOTE | 2020-05-02 14:00 | NUR ---
RN MS3- MEDICATION PATIENT PACING, WALKING AROUND LOOKS UNEASE. SITTER AT BED SIDE. OFFERED PATIENT MEDICATION. EXPLAINED RISKED AND BENEFITS 3X TIMES. PATIENT TOOK ATIVAN PRESCRIBED
[2020-05-02] MEDS: LORAZEPAM 1 MG TABLET PO PRN (14:01)
[2020-05-02 16:00] VITALS: BP 130/77
[2020-05-02] MEDS: hydrALAZINE HCL 50 MG TABLET PO SCH (17:34)
[2020-05-02] MEDS: INSULIN GLARGINE, 100 UNIT/ML CARTRIDGE SQ SCH (17:44)
--- NOTE | 2020-05-02 19:00 | NUR ---
RN medsurg opening notes Received Pt from morning nurse. Pt is resting in bed comfortably. Pt is alert and orientedX1. Respiration is normal in room air. No SOB. No S/S of distress noted. R wrist # 20 is clean, intact, patent and SL. R chest port a cath is clean, intact and patent. Safety precautions is maintained. Bed at low position, brakes locked, side rails upX3 and call light is within reach. Will continue to monitor.
[2020-05-02 20:00] VITALS: BP 105/53
[2020-05-02] MEDS: ATORVASTATIN 40 MG TABLET PO SCH (21:18)
[2020-05-02] MEDS: QUETIAPINE FUMARATE 25 MG TABLET PO SCH (21:18)
[2020-05-03 05:30] LABS: OCCULT BLOOD STOOL NEGATIVE (NEGATIVE)
[2020-05-03] MEDS: BLOOD SUGAR DIAGNOSTIC 1 EACH STRIP IN SCH ×4 (06:32→22:56)
--- NOTE | 2020-05-03 06:50 | NUR ---
RN medsurg closing notes Pt is resting in bed comfortably. Pt is alert and orientedX1 with episode of confusion. Respiration is normal in room air. No SOB. No S/S of distress noted. VS is stable. Afebrile. Routine meds were given as ordered. R wrist # 20 is clean, intact, patent and SL. R chest port a cath is clean, intact and patent. Kept Pt clean, dry and comfortable. Safety precautions is maintained. Bed at low position, brakes locked, side rails upX3 and call light is within reach. Will endorse to morning nurse for MARGOT.
[2020-05-03 08:00] VITALS: BP 147/73
--- NOTE | 2020-05-03 08:00 | NUR ---
RN OPENING NOTES RECEIVED PT. IN BED. NO ACUTE DISTRESS NOTED. A&OX1, WITH CONFUSION. PT. ON ROOM AIR, SATURATING WELL AT 99%. PT. IV ACCESS RIGHT WRIST, INTACT, PATENT, FLUSHED WELL. PT. SAFETY MAINTAINED. CALL LIGHT WITHIN REACH. WILL CONTINUE TO MONITOR.
[2020-05-03 08:31] VITALS: BP 147/73
[2020-05-03] MEDS: LamoTRIgine 25 MG TABLET PO SCH ×2 (08:51→17:48)
[2020-05-03] MEDS: LORAZEPAM 1 MG TABLET PO PRN (09:36)
--- NOTE | 2020-05-03 09:36 | NUR ---
RN NOTE PT. ANXIOUS AND GETTING UP TO TRY AND CALL FAMILY. PT. HAS PRN ATIVAN ORDERED. ADMINISTERED PRN ATIVAN ORDERED. WILL CONTINUE TO MONITOR CLOSELY. Addendum: 05/03/20 at 1334 by LOREN HUFF RN AMEND- PT. ASLEEP, BUT EASILY AROUSABLE TO VOICE, TOUCH. PT. SAFETY MAINTAINED. WILL CONTINUE TO MONITOR
[2020-05-03] MEDS: METOPROLOL SUCCINATE 25 MG TAB.SR.24H PO SCH (10:30)
[2020-05-03] MEDS: hydrALAZINE HCL 50 MG TABLET PO SCH (17:47)
--- NOTE | 2020-05-03 19:01 | NUR ---
RN NOTE CALLED PHARMACY ABOUT PT.'S INSULIN LANTUS CARTRIDGE NOT IN CASETTE OR REFRIGERATOR TWO TIMES. STILL NO INSULIN LANTUS CARTRIDGE TO ADMINISTER. WILL PASS ON THIS INFORMATION TO ONCOMING NURSE.
--- NOTE | 2020-05-03 19:02 | NUR ---
RN CLOSING NOTES PT. IN BED. NO ACUTE DISTRESS NOTED. A&OX1, WITH CONFUSION. PT. ON ROOM AIR, SATURATING WELL AT 97%. PT. IV ACCESS RIGHT WRIST, INTACT, PATENT, FLUSHED WELL. PT. SAFETY MAINTAINED. CALL LIGHT WITHIN REACH. WILL ENDORSE PLAN OF CARE TO ONCOMING NURSE.
--- NOTE | 2020-05-03 19:10 | NUR ---
RN MS OPENING NOTES RECEIVED PATIENT IN BED AWAKE, ALERT AND ORIENTED 1 , NOTED CONFUSED, RESPIRATIONS EVEN AND UNLABORED WITH EQUAL RISE AND FALL OF CHEST, RIGHT WRIST #20 G INTACT AND PATENT, NO REDNESS, NO INFILTRATION PRESENT, RIGHT CHEST PORTACATH IN PLACE WITH DRESSING INTACT, SAFETY PRECAUTIONS RENDERED BED IN LOW POSITION AND LOCKED, BED ALARM IN PLACE , ORIENTED TO STAFF AND CALL LIGHT AND KEPT WITHIN REACH, REMAINS COMFORTABLE AT THIS TIME. ALL NEEDS ATTENDED WILL CONTINUE TO MONITOR.
--- NOTE | 2020-05-03 19:30 | NUR ---
RN MS NOTES HD NURSE AT BEDSIDE. HD NURSE CHANGES HOLDEN CATH C-LINE DRESSING.
[2020-05-03 20:00] VITALS: BP 118/65
[2020-05-03] MEDS: INSULIN GLARGINE, 100 UNIT/ML CARTRIDGE SQ SCH (20:04)
--- NOTE | 2020-05-03 20:04 | NUR ---
rn ms notes pending lantus noted from 1800 accucheck done at 2003 blood sugar was 100 noted poor po intake per documentation refused meals will not give lantus at this time to avoid hypoglycemia episode.
--- NOTE | 2020-05-03 21:35 | NUR ---
rn ms notes HD COMPLETE PER HD NURSE NO FLUID WAS REMOVED.
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
[2020-05-03] MEDS: QUETIAPINE FUMARATE 25 MG TABLET PO SCH (22:43)
[2020-05-03] MEDS: ATORVASTATIN 40 MG TABLET PO SCH (22:43)
[2020-05-03] MEDS: INSULIN REGULAR, HUMAN 100 UNIT/ML 3 ML VIAL SQ PRN (22:56)
[2020-05-04] MEDS: BLOOD SUGAR DIAGNOSTIC 1 EACH STRIP IN SCH ×4 (05:55→22:04)
[2020-05-04] MEDS: INSULIN REGULAR, HUMAN 100 UNIT/ML 3 ML VIAL SQ PRN ×3 (05:55→22:07)
--- NOTE | 2020-05-04 06:14 | NUR ---
RN MS CLOSING NOTES PATIENT IN BED AWAKE, ALERT AND ORIENTED 1 , NOTED CONFUSED, RESPIRATIONS EVEN AND UNLABORED WITH EQUAL RISE AND FALL OF CHEST, RIGHT WRIST #20 G INTACT AND PATENT, RIGHT CHEST PORTACATH IN PLACE WITH DRESSING INTACT CLEAN AND DRY, NEW DRESSING APPLIED BY HD NURSE ON 05/03/20, SAFETY PRECAUTIONS RENDERED BED IN LOW POSITION AND LOCKED, BED ALARM IN PLACE , CALL LIGHT KEPT WITHIN REACH, REMAINS COMFORTABLE AT THIS TIME. ALL NEEDS ATTENDED WILL CONTINUE TO MONITOR AND ENDORSE TO NEXT SHIFT.
--- NOTE | 2020-05-04 07:24 | NUR ---
MS RN OPENING NOTES RECEIVED PATIENT AWAKE IN BED IN NO ACUTE SIGNS OF DISTRESS. HOB ELEVATED. A/O X 1. VERBALLY RESPONSIVE. CONFUSED BUT CALMED AND QUIET AT THIS TIME. ON ROOM AIR, RESPIRATIONS EVEN AND UNLABORED WITH EQUAL RISE AND FALL OF CHEST. IV ACCESS ON RIGHT WRIST #20 G INTACT AND PATENT, NO REDNESS, NO INFILTRATION PRESENT. PORTACATH ON RCW C/D/I. SAFETY PRECAUTIONS IN PLACE: BED IN LOW POSITION AND LOCKED WITH SR UP X2. BED ALARM ACTIVE. WILL CONTINUE TO MONITOR.
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
[2020-05-04 08:00] VITALS: BP 105/63
[2020-05-04] MEDS: LamoTRIgine 25 MG TABLET PO SCH ×2 (09:07→17:18)
[2020-05-04] MEDS: CLOTRIMAZOLE 1% 15 GM TUBE TP SCH ×2 (09:33→17:02)
[2020-05-04] MEDS: ONDANSETRON HCL/PF 4 MG/2 ML VIAL IVP PRN ×2 (09:38→15:53)
[2020-05-04] MEDS: METOPROLOL SUCCINATE 25 MG TAB.SR.24H PO SCH (10:04)
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
--- NOTE | 2020-05-04 15:29 | NUR ---
RN NOTES PT PULLED OUT IV ACCESS ON HIS RIGHT WRIST G#20, NO BLEEDING NOTED. NEW IV ACCESS INSERTED TO RIGHT HAND G#22 AND SECURED WITH TAPE. WILL CONTINUE TO MONITOR.
--- NOTE | 2020-05-04 15:58 | NUR ---
RN NOTES PT VOMITED ABOUT 150ML OF BROWNISH EMESIS. PRN ZOFRAN 4MG /2ML IVP ADMINISTERED @ 1553. LEFT MESSAGE TO DR LONG, AWAITING FOR RESPONSE. WILL CONTINUE TO MONITOR.
[2020-05-04 16:00] VITALS: BP 109/63
[2020-05-04] MEDS: INSULIN GLARGINE, 100 UNIT/ML CARTRIDGE SQ SCH (17:18)
[2020-05-04] MEDS: hydrALAZINE HCL 50 MG TABLET PO SCH (17:19)
--- NOTE | 2020-05-04 18:40 | NUR ---
MS RN CLOSING NOTES PATIENT IN BED AWAKE AND RESTING AT SEMI-MEAD'S POSITION. A/O X 1-2. VERBALLY RESPONSIVE. CONFUSED BUT CALMED AND QUIET AT THIS TIME. NO FURTHER VOMITING NOTED. ON ROOM AIR, TOLERATING WELL WITH NO SOB NOTED THROUGHOUT THE DAY. IV ACCESS ON RIGHT HAND G#22 INTACT, PATENT AND FLUSHES WELL, NO REDNESS OR S/S OF INFILTRATION NOTED AT SITE. PORTACATH ON RCW C/D/I. ALL NEEDS AND CARE PROVIDED WELL. SAFETY PRECAUTIONS KEPT IN PLACE: BED IN LOW POSITION AND LOCKED WITH SR UP X2. BED ALARM ACTIVE. WILL ENDORSED TO DENTAL AMALGAM PROCESSOR NURSE FOR MARGOT
--- NOTE | 2020-05-04 19:05 | NUR ---
RN MS OPENING NOTES RECEIVED PATIENT IN BED AWAKE, ALERT AND ORIENTED X 1 , NOTED WITH EPISODES OF CONFUSION, RESPIRATIONS EVEN AND UNLABORED WITH EQUAL RISE AND FALL OF CHEST, RIGHT HAND #22 G INTACT AND PATENT, RIGHT CHEST HD ACCESS PORTACATH IN PLACE WITH DRESSING INTACT CLEAN AND DRY, SAFETY PRECAUTIONS RENDERED BED IN LOW POSITION AND LOCKED, BED ALARM IN PLACE , AT THIS TIME APPEARS COMFORTABLE, NO NAUSEA OR VOMITING NOTED AT THIS TIME ORIENTED TO CALL LIGHT AND KEPT WITHIN REACH, REMAINS COMFORTABLE AT THIS TIME. ALL NEEDS ATTENDED WILL CONTINUE TO MONITOR.
[2020-05-04 20:00] VITALS: BP 93/60
[2020-05-04 20:35] VITALS: BP 93/60
[2020-05-04] MEDS: QUETIAPINE FUMARATE 25 MG TABLET PO SCH (21:55)
[2020-05-04] MEDS: ATORVASTATIN 40 MG TABLET PO SCH (21:55)
[2020-05-05] VITALS: BP 116/73
[2020-05-05] MEDS: INSULIN REGULAR, HUMAN 100 UNIT/ML 3 ML VIAL SQ PRN (06:04)
[2020-05-05] MEDS: BLOOD SUGAR DIAGNOSTIC 1 EACH STRIP IN SCH ×4 (06:04→22:00)
--- NOTE | 2020-05-05 06:17 | NUR ---
RN MS CLOSING NOTES PATIENT IN BED AWAKE, ALERT AND ORIENTED X 1 , NOTED WITH EPISODES OF CONFUSION, RESPIRATIONS EVEN AND UNLABORED WITH EQUAL RISE AND FALL OF CHEST, RIGHT HAND #22 G INTACT AND PATENT, RIGHT CHEST HD ACCESS PORTACATH IN PLACE WITH DRESSING INTACT CLEAN AND DRY, SAFETY PRECAUTIONS RENDERED BED IN LOW POSITION AND LOCKED, BED ALARM IN PLACE , AT THIS TIME APPEARS COMFORTABLE, NO NAUSEA OR VOMITING NOTED THROUGHOUT SHIFT CALL LIGHT KEPT WITHIN REACH, FALL PRECAUTIONS RENDERED, REMAINS COMFORTABLE AT THIS TIME. ALL NEEDS ATTENDED WILL CONTINUE TO MONITOR AND ENDORSE TO NEXT SHIFT. RECEIVED CALL FROM MARTHA WHO STATES THAT SHE " AGREES WITH REHAB AFTER SPEAKING WITH DAUGHTER." WILL ENDORSE TO NEXT SHIFT.
--- NOTE | 2020-05-05 07:20 | NUR ---
ms rn received on bed,awake,confused, getting out of bed, not in any form of distress, respirations even and unlabored, no sob noted. will monitor patient's condition.
[2020-05-05 08:00] VITALS: BP_SYST 100; BP_SYST 157; BP_DIAS 115; BP_DIAS 60
[2020-05-05] MEDS: CLOTRIMAZOLE 1% 15 GM TUBE TP SCH ×2 (09:00→17:45)
--- NOTE | 2020-05-05 09:30 | NUR ---
ms zuñiga breakfast served due meds given,tolerated well.
[2020-05-05] MEDS: LamoTRIgine 25 MG TABLET PO SCH ×2 (09:42→17:53)
[2020-05-05] MEDS: METOPROLOL SUCCINATE 25 MG TAB.SR.24H PO SCH (09:43)
--- NOTE | 2020-05-05 11:45 | NUR ---
ms rn patient vomited,refused zofran iv,will monitor patient.
--- NOTE | 2020-05-05 12:00 | NUR ---
ms rn patient refused blood sugar check,no s/s of hypoglycemia noted.
[2020-05-05 16:00] VITALS: BP 118/67
--- NOTE | 2020-05-05 17:30 | NUR ---
ms zara held b/p meds at this time b/p in the lower side.
[2020-05-05] MEDS: hydrALAZINE HCL 50 MG TABLET PO SCH (17:53)
--- NOTE | 2020-05-05 18:00 | NUR ---
ms rn sleeping, refusing dinner, bs- 130-no coverage given.
[2020-05-05] MEDS: INSULIN GLARGINE, 100 UNIT/ML CARTRIDGE SQ SCH (18:03)
--- NOTE | 2020-05-05 18:19 | NUR ---
ms rn on bed, no distress noted,all needs attended.
--- NOTE | 2020-05-05 19:30 | NUR ---
MS/RN OPENING NOTES RECEIVED PATIENT IN BED AWAKE, ALERT AND ORIENTED X 2. RESPIRATIONS EVEN AND UNLABORED, NO SIGNS OF SOB. RIGHT HAND #22 G INTACT AND PATENT, RIGHT CHEST HD ACCESS PORTACATH IN PLACE WITH DRESSING INTACT CLEAN AND DRY. SAFETY PRECAUTIONS IN PLACE, BED IN LOW POSITION AND LOCKED. CALL LIGHT WITHIN REACH, REMAINS COMFORTABLE AT THIS TIME. WILL CONTINUE TO MONITOR DURING SHIFT.
[2020-05-05 20:23] VITALS: BP 100/60
[2020-05-05] MEDS: QUETIAPINE FUMARATE 25 MG TABLET PO SCH (21:21)
[2020-05-05] MEDS: ATORVASTATIN 40 MG TABLET PO SCH (21:21)
--- NOTE | 2020-05-05 22:00 | NUR ---
MS/RN NOTES AT 2200HRS PATIENT REFUSED ACCU CHECK, RISK AND BENEFITS WERE EXPLAINED TO PATIENT. PATIENT IS IN NO DISTRESS AT THE MOMENT. WILL CONTINUE TO MONITOR.
[2020-05-06 06:28] LABS: BASOPHILS # (AUTO) 0.1 /CMM (0.0-0.2); BASOPHILS % (AUTO) 0.3 % (0.0-2.0); EOSINOPHILS % (AUTO) 1.1 % (0.0-6.0); HEMATOCRIT 36 % (39-51); HEMOGLOBIN 11.6 g/dL (13.5-17.5); LYMPHOCYTES # (AUTO) 1.3 /CMM (0.8-4.8); LYMPHOCYTES % (AUTO) 6.1 % (20.0-44.0); MEAN CORPUSCULAR HGB CONC 33 g/dl (31.0-36.0); MEAN CORPUSCULAR VOLUME 89 fL (80-96); MONOCYTES # (AUTO) 1.5 /CMM (0.1-1.30); MONOCYTES % (AUTO) 6.9 % (2.0-12.0); NEUTROPHILS # (AUTO) 18.4 /CMM (1.8-8.9); NEUTROPHILS % (AUTO) 85.6 % (43.0-81.0); PLATELET COUNT (AUTO) 308 /CMM (150-450); RED BLOOD CELL COUNT(AUTO) 4.01 MIL/uL (4.5-6.0); WHITE BLOOD COUNT (AUTO) 21.5 K/uL (4.3-11.0)
[2020-05-06 07:17] LABS: ALBUMIN 2.8 g/dL (3.4-5.0); BILIRUBIN,TOTAL 0.4 mg/dL (0.2-1.0); CALCIUM, SERUM 8.3 mg/dL (8.5-10.1); PHOSPHORUS 5.5 mg/dL (2.5-4.9); POTASSIUM 4.3 mmol/L (3.5-5.1); TOTAL PROTEIN, SERUM 7.6 g/dL (6.4-8.2)
[2020-05-06] MEDS: BLOOD SUGAR DIAGNOSTIC 1 EACH STRIP IN SCH ×4 (07:30→21:35)
[2020-05-06 07:33] LABS: CREATININE 12.1 mg/dL (0.6-1.3)
[2020-05-06 08:00] VITALS: BP 106/67
[2020-05-06] MEDS: LamoTRIgine 25 MG TABLET PO SCH ×2 (09:00→18:00)
[2020-05-06] MEDS: CLOTRIMAZOLE 1% 15 GM TUBE TP SCH ×2 (09:00→17:00)
--- NOTE | 2020-05-06 09:02 | NUR ---
Patient is in bed sleeping. Patient refused morning medication and care. hob elevated. Bed in low position. Call light in reach. Will continue to monitor patient throughout shift.
--- NOTE | 2020-05-06 10:13 | NUR ---
Patient attempted to leave inpatient unit. Patient expressed wanting to leave and go home. Security called for assistance to get patient back in bed. Will continue to monitor patient during rounds.
[2020-05-06] MEDS: METOPROLOL SUCCINATE 25 MG TAB.SR.24H PO SCH (10:30)
--- NOTE | 2020-05-06 12:15 | NUR ---
Patient experienced 2 episodes of nausea and vomiting. Dialysis on hold. Doctor aware. Patient is cleaned and resting in bed. Attempted medication administration patient refused and patient is combative.
[2020-05-06 16:11] VITALS: BP 133/75
[2020-05-06] MEDS: hydrALAZINE HCL 50 MG TABLET PO SCH (18:00)
[2020-05-06] MEDS: INSULIN GLARGINE, 100 UNIT/ML CARTRIDGE SQ SCH (18:00)
--- NOTE | 2020-05-06 18:02 | NUR ---
Patient experiencing nausea and vomitting with meals. Doctor notified. Patient is combative and refuses care for health ambulatory care nurse.
--- NOTE | 2020-05-06 18:30 | NUR ---
Patient is in bed resting. Patient is alert and oriented x1-2. Patient does not display any signs or symptoms of pain, distress, or labored breathing. Patient refused care. Patient experienced multiple episodes of nausea and vomiting. Doctor notified about patient current status. Bed in low position. Call light in reach. Will give report to night nurse.
--- NOTE | 2020-05-06 19:30 | NUR ---
MS/RN OPENING NOTES RECEIVED PATIENT IN BED AWAKE, ALERT AND ORIENTED X 2. RESPIRATIONS EVEN AND UNLABORED, NO SIGNS OF SOB, PATIENT ON ROOM AIR SATURATING WELL.RIGHT CHEST HD ACCESS PORTACATH IN PLACE WITH DRESSING INTACT CLEAN AND DRY. NO DISTRESS NOTED. PATIENT STATES NO PAIN AT THIS TIME. SAFETY PRECAUTIONS IN PLACE, BED IN LOW POSITION AND LOCKED. CALL LIGHT WITHIN REACH. WILL CONTINUE TO MONITOR DURING SHIFT.
[2020-05-06 20:29] VITALS: BP 108/50
[2020-05-06] MEDS: ONDANSETRON HCL/PF 4 MG/2 ML VIAL IVP PRN (20:30)
--- NOTE | 2020-05-06 20:41 | NUR ---
RN NOTES RECEIVED PT. WITHOUT AN IV ACCESS, PER REGISTRY NURSE PT. WAS REFUSING BUT PT. IS VOMITING SMALL AMOUNT OF EMESIS, INSERTED NEW IV HEPLOCK #22 ON THE LEFT WRIST... ZOFRAN 4 MG IV GIVEN FOR NAUSEA AND VOMITING, WILL CONTINUE TO MONITOR
[2020-05-06] MEDS: QUETIAPINE FUMARATE 25 MG TABLET PO SCH (21:07)
[2020-05-06] MEDS: ATORVASTATIN 40 MG TABLET PO SCH (21:07)
--- NOTE | 2020-05-06 21:30 | NUR ---
MS/RN NOTES PATIENT REFUSED TO HAVE ACCU CHECK DONE AT 2130HRS, RISK AND BENEFITS EXPLAINED. PATIENT IS IN NO DISTRESS AT THIS TIME, VITAL SIGNS WITHIN NORMAL LIMITS. PATIENT IS EATING APPLE SAUCE AND APPLE JUICE. WILL CONTINUE TO MONITOR.
--- NOTE | 2020-05-07 05:54 | NUR ---
MS/RN NOTES ACCU CHECK DONE ON PATIENT BLOOD SUGAR IS 168, NO INSULIN COVERAGE GIVEN. PATIENT IS REFUSING TO EAT. WILL CONTINUE TO MONITOR.
--- NOTE | 2020-05-07 06:00 | NUR ---
MS/RN CLOSING NOTES PATIENT IN BED AWAKE, ALERT AND ORIENTED X 1-2. RESPIRATIONS EVEN AND UNLABORED, NO SIGNS OF SOB, PATIENT ON ROOM AIR SATURATING WELL.PATIENT HAS LEFT WRIST IV HEPLOCK G#22 INTACT AND PATENT, RIGHT CHEST HD ACCESS PORTACATH IN PLACE WITH DRESSING INTACT CLEAN AND DRY. NO DISTRESS NOTED. PATIENT STATES NO PAIN AT THIS TIME. SAFETY PRECAUTIONS IN PLACE, BED IN LOW POSITION AND LOCKED. CALL LIGHT WITHIN REACH. PATIENTS NEEDS HAVE BEEN MET DURING SHIFT, WILL ENDORSE CARE TO DAY SHIFT NURSE.
[2020-05-07] MEDS: BLOOD SUGAR DIAGNOSTIC 1 EACH STRIP IN SCH ×2 (06:43→12:27)
[2020-05-07 08:00] VITALS: BP 128/71
--- NOTE | 2020-05-07 08:00 | NUR ---
MS RN NOTES PATIENT ALERT, ORIENTED X2. IN BED RESTING NO SOB OR ACUTE DISTRESS. PERIPHERAL IV INTACT PATENT. BED IN LOW LOCKED POSITION, CALL LIGHT WITHIN. WILL CONTINUE TO MONITOR.
[2020-05-07] MEDS: ONDANSETRON HCL/PF 4 MG/2 ML VIAL IVP PRN (09:41)
[2020-05-07 09:42] VITALS: BP 128/71
[2020-05-07] MEDS: LamoTRIgine 25 MG TABLET PO SCH (09:42)
[2020-05-07] MEDS: METOPROLOL SUCCINATE 25 MG TAB.SR.24H PO SCH (09:42)
[2020-05-07] MEDS: CLOTRIMAZOLE 1% 15 GM TUBE TP SCH (09:46)
[2020-05-07] MEDS: INSULIN REGULAR, HUMAN 100 UNIT/ML 3 ML VIAL SQ PRN (12:26)
[2020-05-07] MEDS ORDERED: ALLA266C2 TP (14:07)
[2020-05-07] MEDS ORDERED: PANT40TA2 PO (14:07)
[2020-05-07] MEDS ORDERED: METO25TA4 PO (14:07)
[2020-05-07] MEDS ORDERED: QUET25TA PO (14:07)
--- NOTE | 2020-05-07 15:34 | NUR ---
RN NOTES PATIENT DISCHARGED TO [facility]. PATIENT IN STABLE CONDITION. ALERT, ORIENTED X1-2. PATIENT NONE COMPLIANT WITH CARE. REPORT GIVEN TO MISHA PEREZ AT [facility]. PERIPHERAL IV REMOVED WITH MINIMAL BLEEDING. PATIENTS MADE AWARE OF DISCHARGE. PATIENT TRANSFERRED TO [facility] VIA AMBULANCE. ID BAND REMOVED. AWARE OF ALL ABNORMAL LABS AND TESTS.
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
== END 2020-05-07 15:30 | DRG 640 ==
LOC: ER 22:04 → TELE 05-01 00:34 → MED 05-01 09:41
PROVIDERS: ADMIT Internal Medicine; ATTEND Internal Medicine
PROC: 5A1D70Z Performance of Urinary Filtration, Intermittent, Less than 6 Hours Per Day (ICD-10-PCS; 2020-05-01)
PROC: 5A1D70Z Performance of Urinary Filtration, Intermittent, Less than 6 Hours Per Day (ICD-10-PCS; principal; 2020-05-03)
PROC: 5A1D70Z Performance of Urinary Filtration, Intermittent, Less than 6 Hours Per Day (ICD-10-PCS; 2020-05-06)
DX: E87.79 Other fluid overload (principal); N18.6 End stage renal disease; G92 Toxic encephalopathy; I13.2 Hypertensive heart and chronic kidney disease with heart failure and with stage 5 chronic kidney disease, or end stage renal disease; I69.354 Hemiplegia and hemiparesis following cerebral infarction affecting left non-dominant side; E11.22 Type 2 diabetes mellitus with diabetic chronic kidney disease; F01.50 Vascular dementia, unspecified severity, without behavioral disturbance, psychotic disturbance, mood disturbance, and anxiety; E11.40 Type 2 diabetes mellitus with diabetic neuropathy, unspecified; N40.0 Benign prostatic hyperplasia without lower urinary tract symptoms; D72.829 Elevated white blood cell count, unspecified; Z99.2 Dependence on renal dialysis; I25.10 Atherosclerotic heart disease of native coronary artery without angina pectoris; Z95.5 Presence of coronary angioplasty implant and graft; F39 Unspecified mood [affective] disorder; K76.89 Other specified diseases of liver; R26.9 Unspecified abnormalities of gait and mobility; R56.9 Unspecified convulsions; E78.5 Hyperlipidemia, unspecified; I50.9 Heart failure, unspecified; K21.9 Gastro-esophageal reflux disease without esophagitis; K20.9 Esophagitis, unspecified; R19.7 Diarrhea, unspecified; F41.9 Anxiety disorder, unspecified
CPT/HCPCS: 36415; 70450-TC; 71045-TC; 80048-TC; 80053-TC; 80061-TC; 80076-TC; 80305; 81000-TC; 82140-TC; 82272-TC; 82962-TC; 83735-TC; 84100-TC; 84484-TC; 85025-TC; 86706; 86850-TC; 87081-TC; 87340; 90935-TC; 92611-TC; 97116-TC; 97530-TC; 97535-TC; G0378; G0480; J1815; J2405

== ENCOUNTER 2020-07-06 08:15 | Inpatient (IN) | payer MEDICARE, OTHER ==
[~2020-07-06] VITALS: Ht 167.6 cm; Wt 57.2 kg
[~2020-07-06 08:15] MED LIST changes: +ALLA266C2 TP; +METO25TA4 PO; +PANT40TA2 PO; +QUET25TA PO
--- NOTE | 2020-07-06 08:15 | NUR ---
PT [id number] FROM SNF C/O MORE ALTERED THAN USUAL. PT IS AAOX1, NOT IN RESPIRATORY DISTRESS, HOOKED TO DEPUTY PROBATION OFFICER ,KEPT RESTED AND COMFORTABLE. WILL CONTINUE TO MONITOR.
--- NOTE | 2020-07-06 08:24 | NUR ---
SEEN AND EXAMINED BY .
[2020-07-06] MEDS ORDERED: IV NS 0.9% 500 ML BAG IV ONE (08:30)
--- NOTE | 2020-07-06 08:30 | NUR ---
IV LINE ESTABLISHED BLOOD DRAWN AND SENT TO LAB.
[2020-07-06 09:01] LABS: BASOPHILS % (AUTO) 0.4 % (0.0-2.0); EOSINOPHILS % (AUTO) 1.7 % (0.0-6.0); HEMATOCRIT 34 % (39-51); HEMOGLOBIN 11.2 g/dL (13.5-17.5); LYMPHOCYTES # (AUTO) 1.2 /CMM (0.8-4.8); LYMPHOCYTES % (AUTO) 17.8 % (20.0-44.0); MEAN CORPUSCULAR HGB CONC 33 g/dl (31.0-36.0); MEAN CORPUSCULAR VOLUME 93 fL (80-96); MONOCYTES # (AUTO) 0.9 /CMM (0.1-1.30); MONOCYTES % (AUTO) 13.4 % (2.0-12.0); NEUTROPHILS # (AUTO) 4.6 /CMM (1.8-8.9); NEUTROPHILS % (AUTO) 66.7 % (43.0-81.0); PLATELET COUNT (AUTO) 156 /CMM (150-450); RED BLOOD CELL COUNT(AUTO) 3.66 MIL/uL (4.5-6.0); WHITE BLOOD COUNT (AUTO) 6.8 K/uL (4.3-11.0)
[2020-07-06 09:10] LABS: CARBON DIOXIDE 28 mmol/L (21-32); CHLORIDE 102 mmol/L (98-107); GLUCOSE 103 mg/dL (74-106); POTASSIUM 4.2 mmol/L (3.5-5.1); SODIUM SERUM 142 mmol/L (136-145); UREA NITROGEN, BLOOD 37 mg/dL (7-18)
[2020-07-06 09:15] LABS: CREATININE 9.7 mg/dL (0.6-1.3)
[2020-07-06 09:16] LABS: ALANINE AMINOTRANSFERASE < 6 U/L (12-78); ALBUMIN 2.2 g/dL (3.4-5.0); ALKALINE PHOSPHATASE 59 U/L (46-116); ASPARTATE AMINOTRANSFERASE 11 U/L (15-37); BILIRUBIN,DIRECT 0.1 mg/dL (0.0-0.2); BILIRUBIN,TOTAL 0.3 mg/dL (0.2-1.0); TOTAL PROTEIN, SERUM 7.3 g/dL (6.4-8.2)
[2020-07-06 09:18] LABS: ACETAMINOPHEN < 2 ug/ml (10-30); ALCOHOL, BLOOD < 3 mg/dL (0-0); SALICYLATE 1.6 mg/dL (2.8-20.0)
[2020-07-06 09:25] LABS: SERUM AMMONIA 4 umol/L (11-32)
--- NOTE | 2020-07-06 09:55 | NUR ---
CALLED DR LONG'S OFFICE AND HAD HIM PAGED.
--- NOTE | 2020-07-06 10:07 | NUR ---
CALLED [facility]SE [facility] FOR TELE BED
--- NOTE | 2020-07-06 10:26 | NUR ---
CALLED LAB FOR COVID SWAB KIT
--- NOTE | 2020-07-06 10:29 | NUR ---
COVID SPECIMEN COLLECTED AND SENT TO LAB.
[2020-07-06] MEDS: METOPROLOL SUCCINATE 25 MG TAB.SR.24H PO SCH (10:30)
[2020-07-06] MEDS ORDERED: INSULIN REGULAR, HUMAN 100 UNIT/ML 3 ML VIAL SQ PRN (10:30)
[2020-07-06] MEDS ORDERED: MAG HYDROX/AL HYDROX/SIMETH 30 ML UDC PO PRN (10:30)
[2020-07-06] MEDS ORDERED: DEXTROSE 50%-WATER 50 ML DISP.SYRIN IV PRN (10:30)
[2020-07-06] MEDS ORDERED: LORAZEPAM 1 MG TABLET PO PRN (10:30)
[2020-07-06] MEDS ORDERED: Z GUARD REMEDY 2 OZ OINT TP PRN ×2 (10:30)
[2020-07-06] MEDS ORDERED: ONDANSETRON HCL/PF 4 MG/2 ML VIAL IVP PRN (10:30)
[2020-07-06] MEDS ORDERED: ACETAMINOPHEN 325 MG TABLET PO PRN (10:30)
[2020-07-06] MEDS ORDERED: MAGNESIUM HYDROXIDE 30 ML UDC PO PRN (10:30)
[2020-07-06] MEDS ORDERED: HYDROCODONE/APAP 5/325MG TABLET PO PRN (10:30)
--- NOTE | 2020-07-06 10:49 | NUR ---
NINA COMBS, PT LIVES AT HOME WITH MARTHA ( )[phone], PT GOES TO [facility] ON MWF FROM 12PM TO 4PM.
--- NOTE | 2020-07-06 11:22 | NUR ---
REPORT GIVEN TO ANA MALONE FOR MARGOT.
--- NOTE | 2020-07-06 12:00 | NUR ---
RN ADMITTING NOTES ADMITTED A 60 Y/O, MALE, TO UNIT VIA GURNEY WITH 2 ER STAFF. AMS, UNABLE TO OBTAIN ANY INFORMATION. AROUSABLE TO TOUCH, ON ROOM AIR, SATING @98%, NO SIGNS OF DISTRESS NOTED AT THIS TIME. BREATHING EVEN AND UNLABORED. V/S TAKEN AND RECORDED. PHYSICAL ASSESSMENT DONE, NOTED WITH REDNESS ON SCROTUM AND DISCOLORATION ON SACRAL AREA, PHOTOS FILED ON CHART. LUNGS CLEAR ON AUSCULTATION. SAFETY MEASURES INITIATED, BED PLACE IN LOWEST LOCKED POSITION WITH SIDE RAILS UP X3. CALL LIGHT WITHIN EASY REACH. WILL CONTINUE TO MONITOR.
[2020-07-06] MEDS: BLOOD SUGAR DIAGNOSTIC 1 EACH STRIP VI SCH ×3 (12:56→22:41)
--- NOTE | 2020-07-06 15:00 | NUR ---
RN NOTES DIALYSIS NURSE ON UNIT, PATIENT WILL BE DIALYZE AT BEDSIDE, NO SIGNS OF DISTRESS, WILL CONTINUE TO MONITOR.
[2020-07-06 16:00] VITALS: BP 182/80
--- NOTE | 2020-07-06 17:15 | NUR ---
RN NOTES DIALYSIS DONE, NO BLEEDING NOTED, BP OF 151/84, P-84, TEMP 98, ON RA, SATING @100%. WILL CONTINUE TO MONITOR.
[2020-07-06] MEDS: hydrALAZINE HCL 50 MG TABLET PO SCH (17:27)
[2020-07-06] MEDS: LamoTRIgine 25 MG TABLET PO SCH (17:28)
--- NOTE | 2020-07-06 18:37 | NUR ---
RN NOTES PATIENT IN BED RESTING COMFORTABLY IN MODERATE HIGH BACK REST. A/O X0, ON ROOM AIR, TOLERATING WELL, NO SIGNS OF DISTRESS NOTED THROUGHOUT THE SHIFT. IV ACCESS ON LEFT HAND #18, PATENT AND INTACT. S/P HD WITH NO OUTPUT. SAFETY MEASURES IN PLACE, BED PLACE IN LOWEST LOCKED POSITION WITH SIDE RAILS UP X3. CALL LIGHT WITHIN EASY REACH. WILL ENDORSE TO ENGINEERING AIDE NURSE FOR MARGOT.
--- NOTE | 2020-07-06 19:44 | NUR ---
CEMENTER HAND NOTES received patient awake alert oriented to self. PATIENT IN BED RESTING COMFORTABLY IN MODERATE HIGH BACK REST. A/O X1, ON ROOM AIR, TOLERATING WELL, NO SIGNS OF DISTRESS NOTED THROUGHOUT THE SHIFT. IV ACCESS ON LEFT HAND #18, PATENT AND INTACT. S/P HD 07/06/20 WITH NO OUTPUT. SAFETY MEASURES IN PLACE, BED PLACE IN LOWEST LOCKED POSITION WITH SIDE RAILS UP X3. CALL LIGHT WITHIN EASY REACH. ALL NEEDS ANTICIPATED. WILL CONTINUE TO MONITOR ACCORDINGLY.
[2020-07-06 20:48] VITALS: BP 146/84
[2020-07-06] MEDS: *INSULIN REGULAR(HUMULIN R)HUM 100 UNIT/ML VIAL SQ PRN (22:56)
--- NOTE | 2020-07-07 04:56 | NUR ---
RN NOTES INFORMED DR. MERCADO REGARDING PATIENT'S INCREASED BLOOD PRESSURE, WITH ORDER TO GIVE HYDRALAZINE 25 MG TABLET EVERY 4 HOURS PRN FOR SBP ABOVE 160.
[2020-07-07] MEDS ORDERED: hydrALAZINE HCL 25 MG TABLET PO PRN (05:00)
[2020-07-07 05:50] VITALS: BP 138/72
--- NOTE | 2020-07-07 06:06 | NUR ---
FINE SANDER NOTES ALL NEEDS ATTENDED AND MET. ABLE TO REST AND SLEPT AT INTERVALS. PATIENT IN BED RESTING COMFORTABLY IN MODERATE HIGH BACK REST. A/O X1, ON ROOM AIR, TOLERATING WELL, NO SIGNS OF DISTRESS NOTED THROUGHOUT THE SHIFT. IV ACCESS ON LEFT HAND #18, PATENT AND INTACT. S/P HD 07/06/20 WITH NO OUTPUT. SAFETY MEASURES IN PLACE, BED PLACE IN LOWEST LOCKED POSITION WITH SIDE RAILS UP X3. CALL LIGHT WITHIN EASY REACH. ALL NEEDS ANTICIPATED. WILL ENDORSE TO AM NURSE FOR CONTINUITY OF CARE.
--- NOTE | 2020-07-07 07:20 | NUR ---
DIRECTOR OF HEAD START NOTES RECEIVED PATIENT IN BED, ALERT AND AWAKE ORIENTED X1. HOB ELEVATED. NOTED WITH EPISODES OF CLEAR AND UNCLEAR SPEECH. ON TELE MONITORING SR: 71. NO SOB. DENIES ANY C/O PAIN NOR DISCOMFORT AT THIS TIME. LEFT HAND SL # INTACT AND PATENT. LEFT UPPER CHEST INÉS CATH INTACT. BED IN LOWEST POSITION, LOCKED. BED ALARM ON. CALL LIGHT WITHIN REACH. FREQUENT VISUAL CHECK DONE.
[2020-07-07] MEDS: BLOOD SUGAR DIAGNOSTIC 1 EACH STRIP VI SCH ×4 (07:24→22:19)
[2020-07-07 07:50] LABS: BASOPHILS % (AUTO) 0.4 % (0.0-2.0); HEMATOCRIT 34 % (39-51); LYMPHOCYTES # (AUTO) 1.4 /CMM (0.8-4.8); LYMPHOCYTES % (AUTO) 21.5 % (20.0-44.0); MEAN CORPUSCULAR HGB CONC 32 g/dl (31.0-36.0); MEAN CORPUSCULAR VOLUME 92 fL (80-96); MONOCYTES # (AUTO) 1.1 /CMM (0.1-1.30); MONOCYTES % (AUTO) 17.5 % (2.0-12.0); NEUTROPHILS # (AUTO) 3.8 /CMM (1.8-8.9); NEUTROPHILS % (AUTO) 59.6 % (43.0-81.0); PLATELET COUNT (AUTO) 187 /CMM (150-450); RED BLOOD CELL COUNT(AUTO) 3.69 MIL/uL (4.5-6.0); WHITE BLOOD COUNT (AUTO) 6.3 K/uL (4.3-11.0)
[2020-07-07 08:00] VITALS: BP 155/97
[2020-07-07 08:01] LABS: PHOSPHORUS 3.9 mg/dL (2.5-4.9); POTASSIUM 4.1 mmol/L (3.5-5.1)
[2020-07-07 08:06] LABS: CREATININE 7.5 mg/dL (0.6-1.3)
--- NOTE | 2020-07-07 08:09 | NUR ---
WOUND CARE CONSULT: PT PRESENTS WITH SACRAL SCARRING AND SOME DRY SCRATCHES WELL INTACT DEEP TISSUE INJURIES TO BILATERAL HEELS, PRESENT ON ADMISSION. RECOMMENDATIONS MADE FOR SKIN PROTECTION AND WOUND CARE. DISCUSSED WITH NURSING STAFF. PT IS ON TATI ISOFLEX LOW AIRLOSS BED. WILL SEE PRN. BROWN IN AGREEMENT WITH PLAN OF CARE. Addendum: 07/07/20 at 0811 by PRATEEK SORENSEN WNDNU Amended: Links added.
[2020-07-07] MEDS: PANTOPRAZOLE 40 MG TABLET.DR PO SCH (08:25)
[2020-07-07 09:11] LABS: EOSINOPHILS % (MANUAL) 1 % (0-4); LYMPHOCYTES % (MANUAL) 14 % (16-48); MONOCYTES % (MANUAL) 25 % (0-11.0); NEUTROPHILS % (MANUAL) 60 (42-76)
[2020-07-07] MEDS: LamoTRIgine 25 MG TABLET PO SCH ×2 (09:41→17:24)
[2020-07-07] MEDS: METOPROLOL SUCCINATE 25 MG TAB.SR.24H PO SCH (09:41)
[2020-07-07] MEDS ORDERED: NEPRO VAN 237 ML CAN PO PRN (13:30)
[2020-07-07 16:00] VITALS: BP 135/90
[2020-07-07] MEDS: *INSULIN REGULAR(HUMULIN R)HUM 100 UNIT/ML VIAL SQ PRN (16:57)
[2020-07-07] MEDS: hydrALAZINE HCL 50 MG TABLET PO SCH (17:24)
--- NOTE | 2020-07-07 19:00 | NUR ---
MS RN NOTES PATIENT CURRENTLY RECEIVING HD. HOB ELEVATED. NO S/S OF RESPIRATORY DISTRESS. DENIES ANY C/O PAIN NOR DISCOMFORT AT THIS TIME. LEFT HAND SL # INTACT AND PATENT. LEFT UPPER CHEST INÉS CATH INTACT. BED IN LOWEST POSITION, LOCKED. BED ALARM ON. CALL LIGHT WITHIN REACH. FREQUENT VISUAL CHECK DONE. IN NO APPARENT DISTRESS.
--- NOTE | 2020-07-07 19:35 | NUR ---
MS RN NOTES RECEIVED ON BED,A/O X1,HD IN PROGRESS,HD NURSE AT BEDSIDE.WILL CONTINUE TO MONITOR.
[2020-07-07 20:00] VITALS: BP 128/77
--- NOTE | 2020-07-07 21:00 | NUR ---
MS RN NOTES HEMODIALYSIS COMPLETED.NO OUTPUT PER HD NURSE,CLEANING ONLY.PATIENT ON BED A/O X1,TALKING TO SELF,CONFUSED.WILL CONTINUE TO MONITOR.
--- NOTE | 2020-07-07 22:15 | NUR ---
MS RN NOTES ACCU-CHECK BLOOD SUGAR CHECK 82,ORANGE JUICE WITH SUGAR GIVEN,TAKEN WELL
--- NOTE | 2020-07-08 05:34 | NUR ---
MS RN NOTES ACU-CHECK BLOOD SUGAR CHECK 73,ASYMPTOMATIC FOR HYPOGLYCEMIA,ORANGE JUICE WITH SUGAR GIVEN.WILL CONTINUE TO MONITOR.
[2020-07-08] MEDS: BLOOD SUGAR DIAGNOSTIC 1 EACH STRIP VI SCH ×4 (06:07→21:35)
--- NOTE | 2020-07-08 06:16 | NUR ---
MS RN NOTES ON BED CONFUSED BUT CALM ON BED,TALKING TO SELF AT TIMES.NO FALL,NO INJURY.BLOOD SUGAR WITH IN NORMAL LIMITS.FOR NEURO CONSULT,NEPRO RECOMMEND EEG INN REGARDS TO ALTERED MENTAL STATUS.IN NO ACUTE DISTRESS.
--- NOTE | 2020-07-08 07:13 | NUR ---
BEHAVIOR SUPPORT SPECIALIST NOTES RECEIVED PATIENT IN BED, ALERT AND AWAKE ORIENTED X1. NO SOB. DENIES ANY C/O PAIN NOR DISCOMFORT AT THIS TIME. LEFT HAND SL # INTACT AND PATENT. LEFT UPPER CHEST INÉS CATH INTACT. BED IN LOWEST POSITION, LOCKED. BED ALARM ON. CALL LIGHT WITHIN REACH. FREQUENT VISUAL CHECK DONE.
[2020-07-08] MEDS: PANTOPRAZOLE 40 MG TABLET.DR PO SCH (08:10)
[2020-07-08] MEDS: LamoTRIgine 25 MG TABLET PO SCH ×2 (08:10→18:27)
[2020-07-08 08:29] LABS: BASOPHILS % (AUTO) 0.5 % (0.0-2.0); EOSINOPHILS % (AUTO) 1.3 % (0.0-6.0); HEMATOCRIT 32 % (39-51); HEMOGLOBIN 10.4 g/dL (13.5-17.5); LYMPHOCYTES # (AUTO) 1.2 /CMM (0.8-4.8); LYMPHOCYTES % (AUTO) 19.4 % (20.0-44.0); MEAN CORPUSCULAR HGB CONC 32 g/dl (31.0-36.0); MEAN CORPUSCULAR VOLUME 93 fL (80-96); MONOCYTES # (AUTO) 1.6 /CMM (0.1-1.30); MONOCYTES % (AUTO) 24.6 % (2.0-12.0); NEUTROPHILS # (AUTO) 3.5 /CMM (1.8-8.9); NEUTROPHILS % (AUTO) 54.2 % (43.0-81.0); PLATELET COUNT (AUTO) 183 /CMM (150-450); RED BLOOD CELL COUNT(AUTO) 3.47 MIL/uL (4.5-6.0); WHITE BLOOD COUNT (AUTO) 6.4 K/uL (4.3-11.0)
[2020-07-08 08:36] LABS: CALCIUM, SERUM 8.9 mg/dL (8.5-10.1); POTASSIUM 3.9 mmol/L (3.5-5.1)
[2020-07-08 09:16] LABS: EOSINOPHILS % (MANUAL) 1 % (0-4); LYMPHOCYTES % (MANUAL) 27 % (16-48); MONOCYTES % (MANUAL) 21 % (0-11.0); NEUTROPHILS % (MANUAL) 51 (42-76)
[2020-07-08 09:18] LABS: CHOLESTEROL 170 mg/dL (<200); HDL CHOLESTEROL 64 mg/dL (40-60); LDL 69 mg/dL (0-99); TRIGLYCERIDES 67 mg/dL (30-150)
[2020-07-08] MEDS: METOPROLOL SUCCINATE 25 MG TAB.SR.24H PO SCH (09:38)
[2020-07-08] MEDS: ASPIRIN EC 81 MG TABLET.DR PO SCH (09:38)
[2020-07-08] MEDS: *INSULIN REGULAR(HUMULIN R)HUM 100 UNIT/ML VIAL SQ PRN (12:58)
[2020-07-08] MEDS: hydrALAZINE HCL 50 MG TABLET PO SCH (18:27)
--- NOTE | 2020-07-08 19:10 | NUR ---
MS RN NOTES PATIENT RESTING COMFORTABLY IN BED, ASLEEP. AROUSABLE TO VERBAL AND TACTILE STIMULI. HOB ELEVATED. NO S/S OF RESPIRATORY DISTRESS. DENIES ANY C/O PAIN NOR DISCOMFORT AT THIS TIME. LEFT HAND SL # INTACT AND PATENT. LEFT UPPER CHEST INÉS CATH INTACT. BED IN LOWEST POSITION, LOCKED. BED ALARM ON. CALL LIGHT WITHIN REACH. PATIENT RECEIVED HD, CLEANING ONLY, NO OUTPUT. IN NO APPARENT DISTRESS.
[2020-07-08 20:00] VITALS: BP 141/94
--- NOTE | 2020-07-08 22:00 | NUR ---
MS RN NOTES ACCU-CHECK BLOOD SUGAR CHECK 129,NO INSULIN COVERAGE.
[2020-07-09] VITALS: BP 139/78
--- NOTE | 2020-07-09 00:58 | NUR ---
MS RN NOTES TRANSFERRED TO SECOND FLOOR ROOM 203,REPORT GIVEN TO SHUKRI PEREZ FOR CONTINUITY OF CARE.
[2020-07-09 01:00] VITALS: BP 139/75
--- NOTE | 2020-07-09 01:00 | NUR ---
pleat patternmaker of care notes: received pt transferred from [facility]. pt is a/o x 1-2 per report with episode of clear and unclear speech, also episode of lethargy. pt awake, open eyes, respirations even and unlabored. iv access patent and flushing well, on hl. pt s/p hd cleaning only. inventory of belongings completed by donterll olivo. vs taken and recorded. safety precautions for fall engaged, call light in reach, will cotninue monitoring pt.
--- NOTE | 2020-07-09 02:34 | NUR ---
RN NOTES: PATIENT RESTING COMFORTABLY IN BED, ASLEEP. RESPONSIVE TO VERBAL AND TACTILE STIMULI. HOB ELEVATED. NO S/S OF RESPIRATORY DISTRESS. WILL CONTINUE MONITORING PT.
--- NOTE | 2020-07-09 05:12 | NUR ---
RN NOTES: PT CALLED STATING SHE'S STILL HUNGRY. PT ATE TUNA SANDWICH AND 8PCS OF CRACKERS WITH 3 CRANBERRY JUICES AND 1 PITCHER OF WATER. INFORMED PT SHE IS ON DIABETIC DIET AND THAT HER SUGAR WERE ALREADY RUNNING 300'S. IT WOULD BE NECESSARY TO BE COMPLIANT WITH DIET IN ORDER TO HAVE GOOD GLYCEMIC CONTROL. Addendum: 07/09/20 at 0515 by MARYLIN GARCIA RN DISREGARD ABOVE DOCUMENTATION: WRONG ENTRY
[2020-07-09] MEDS: *INSULIN REGULAR(HUMULIN R)HUM 100 UNIT/ML VIAL SQ PRN (06:31)
[2020-07-09] MEDS: BLOOD SUGAR DIAGNOSTIC 1 EACH STRIP VI SCH ×3 (06:31→17:09)
--- NOTE | 2020-07-09 06:32 | NUR ---
rn notes/accu check: blood glucose check performed and result is 79, no insulin coverage given per sliding scale.
--- NOTE | 2020-07-09 06:47 | NUR ---
rn notes: contacted pt's in order to get consent for eeg, - karmen morgan at [phone], directs thru voicemail, left a message awaiting for call back.
--- NOTE | 2020-07-09 06:55 | NUR ---
end of shift report: pt remains a/o x 1-2 with mixed of clear and unclear speech noted. pt awake, open eyes, respirations even and unlabored. iv access patent and flushing well, on hl. vs remains stable, needs attended. PLAN OF CARE: FOR EEG IN AM, DC PLAN TO [facility]. Safety precautions for fall engaged, call light in reach, will continue monitoring pt.
[2020-07-09] MEDS: PANTOPRAZOLE 40 MG TABLET.DR PO SCH (07:55)
[2020-07-09 08:00] LABS: BASOPHILS % (AUTO) 0.7 % (0.0-2.0); EOSINOPHILS % (AUTO) 1.8 % (0.0-6.0); HEMATOCRIT 30 % (39-51); HEMOGLOBIN 9.8 g/dL (13.5-17.5); LYMPHOCYTES # (AUTO) 1.4 /CMM (0.8-4.8); LYMPHOCYTES % (AUTO) 22.5 % (20.0-44.0); MEAN CORPUSCULAR HGB CONC 33 g/dl (31.0-36.0); MEAN CORPUSCULAR VOLUME 92 fL (80-96); MONOCYTES # (AUTO) 1.4 /CMM (0.1-1.30); MONOCYTES % (AUTO) 21.8 % (2.0-12.0); NEUTROPHILS # (AUTO) 3.4 /CMM (1.8-8.9); NEUTROPHILS % (AUTO) 53.2 % (43.0-81.0); PLATELET COUNT (AUTO) 197 /CMM (150-450); RED BLOOD CELL COUNT(AUTO) 3.27 MIL/uL (4.5-6.0); WHITE BLOOD COUNT (AUTO) 6.4 K/uL (4.3-11.0)
--- NOTE | 2020-07-09 08:00 | NUR ---
MS RN NOTES PATIENT IN BED RESTING NO SOB OR ACUTE DISTRESS NOTED. PATIENT SLEEPING. PERIPHERAL IV INTACT, PATENT. SAFETY MEASURES IN PLACE, WILL CONTINUE TO MONITOR.
[2020-07-09 08:11] LABS: CALCIUM, SERUM 8.7 mg/dL (8.5-10.1); CREATININE 5.2 mg/dL (0.6-1.3); POTASSIUM 4.1 mmol/L (3.5-5.1)
[2020-07-09] MEDS: LamoTRIgine 25 MG TABLET PO SCH ×2 (08:24→18:17)
[2020-07-09] MEDS: ASPIRIN EC 81 MG TABLET.DR PO SCH (08:24)
[2020-07-09] MEDS: METOPROLOL SUCCINATE 25 MG TAB.SR.24H PO SCH (10:57)
--- NOTE | 2020-07-09 16:30 | NUR ---
MS RN NOTES TELEPHONE ORDER RECEIVED TO DISCHARGE PATIENT AFTER HD. DISTRICT ADVISER MADE AWARE TO ARRANGE TRANSPORTATION. PATIENTS MADE AWARE OF DISCHARGE.
--- NOTE | 2020-07-09 17:00 | NUR ---
MS RN NOTES PER [facility] SET UP WITH [facility], PATIENTS PREVIOUS HOME HEALTH.
[2020-07-09] MEDS ORDERED: ASPI-1420 PO (17:53)
[2020-07-09] MEDS ORDERED: HYDR-4076 PO (17:53)
[2020-07-09] MEDS: hydrALAZINE HCL 50 MG TABLET PO SCH (18:17)
--- NOTE | 2020-07-09 19:12 | NUR ---
MS RN NOTES PATIENT IN BED RESTING NO SOB OR ACUTE DISTRESS NOTED. PATIENT WAITING FOR AMBULANCE FOR DISCHARGE. S/P HD TOLERATED WELL. ALL DUE MEDICATIONS ADMINISTERED. ALL NEEDS MET. NO ACUTE CHANGES NOTED ENDORSED CARE TO PM SHIFT.
[2020-07-09 19:32] VITALS: BP 148/65
--- NOTE | 2020-07-09 19:51 | NUR ---
DC NOTES: PT DC HOME. PICKED UP BY EMT. ALL DC PAPER WORKS COMPLETED BY DAY RN, SIGNED. DC PAPER WORKS HANDED OVER TO EMT. INVENTORY OF BELONGINGS COMPLETED, GIVEN TO EMT. IV ACCESS REMOVED, TIP INTACT, PRESSURED DRESSING APPLIED, ARMBAND REMOVED. AWARE OF PT'S DISCHARGE. VS TAKEN AND RECORDED. PT MEDICALLY CLEARED FOR DISCHARGE. LEFT THE UNIT VIA GURNEY TRANSPORTED BY AMBULANCE.
[2020-07-09 20:00] VITALS: BP 148/85
== END 2020-07-09 20:00 | disposition home health service (06) | DRG 682 ==
LOC: ER 08:15 → TELE 11:35 → MED 07-07 11:17 → MEDSG2 07-09 00:55
PROVIDERS: ADMIT Internal Medicine; ATTEND Internal Medicine
PROC: 5A1D70Z Performance of Urinary Filtration, Intermittent, Less than 6 Hours Per Day (ICD-10-PCS; principal; 2020-07-06)
DX: I12.0 Hypertensive chronic kidney disease with stage 5 chronic kidney disease or end stage renal disease (principal); E43 Unspecified severe protein-calorie malnutrition; N18.6 End stage renal disease; G92 Toxic encephalopathy; N17.9 Acute kidney failure, unspecified; I25.10 Atherosclerotic heart disease of native coronary artery without angina pectoris; F41.9 Anxiety disorder, unspecified; G40.909 Epilepsy, unspecified, not intractable, without status epilepticus; Z95.5 Presence of coronary angioplasty implant and graft; Z99.2 Dependence on renal dialysis; Z86.73 Personal history of transient ischemic attack (TIA), and cerebral infarction without residual deficits; Z79.4 Long term (current) use of insulin; Z79.899 Other long term (current) drug therapy; Z88.8 Allergy status to other drugs, medicaments and biological substances; E11.22 Type 2 diabetes mellitus with diabetic chronic kidney disease; E78.5 Hyperlipidemia, unspecified; F03.90 Unspecified dementia, unspecified severity, without behavioral disturbance, psychotic disturbance, mood disturbance, and anxiety; I67.2 Cerebral atherosclerosis; Z87.891 Personal history of nicotine dependence; N25.0 Renal osteodystrophy
CPT/HCPCS: 36415; 70450-TC; 71045-TC; 80048-TC; 80061-TC; 80076-TC; 80175; 82140-TC; 82962-TC; 83605-TC; 83615-TC; 83735-TC; 84100-TC; 84484-TC; 85025-TC; 86706; 87040-TC; 87081-TC; 87340; 90935-TC; 93307-TC; 93880-TC; 97530-TC; C9803-CS; G0378; G0480; J1815; J7040

== ENCOUNTER 2020-07-10 18:33 | Inpatient (IN) | payer MEDICARE, OTHER ==
[~2020-07-10] VITALS: Ht 15.2 cm; Wt 58.1 kg
[~2020-07-10 18:33] MED LIST changes: +ASPI-1420 PO; +HYDR-4076 PO
--- NOTE | 2020-07-10 19:14 | NUR ---
RADHAMES FROM HOME TO ER BED 6. AAOX1. NOT IN RESP DISTRESS, BREATHING EVEN AND UNLABORED. BROUGHT IN REPORTED COFFEE GROUND EMESIS. PT IS NOTED WITH HICUPS AT SALMA TIME. NOT ACTIVE VOMMITING NOTED. IV LINE IS ESTABLISHED ON THE RFA 20G. BLOOD DRAWN AND SENT TO LAB. AWAITING MD FOR EVAL.
[2020-07-10] MEDS ORDERED: IV NS 0.9% 500 ML BAG IV ONE (19:30)
--- NOTE | 2020-07-10 19:30 | NUR ---
EMT AT BEDSIDE FOR EVAL
[2020-07-10] MEDS ORDERED: METOCLOPRAMIDE HCL 10 MG/2 ML VIAL IV ONE (20:00)
--- NOTE | 2020-07-10 20:06 | NUR ---
pt vommited coffee ground emesis, moderated amount. md made aware. orders received
[2020-07-10] MEDS ORDERED: METOCLOPRAMIDE HCL 10 MG/2 ML VIAL ONE (20:08)
[2020-07-10 20:19] LABS: BASOPHILS # (AUTO) 0.1 /CMM (0.0-0.2); BASOPHILS % (AUTO) 0.5 % (0.0-2.0); EOSINOPHILS % (AUTO) 0.9 % (0.0-6.0); HEMATOCRIT 33 % (39-51); HEMOGLOBIN 10.3 g/dL (13.5-17.5); LYMPHOCYTES # (AUTO) 1.4 /CMM (0.8-4.8); LYMPHOCYTES % (AUTO) 11.3 % (20.0-44.0); MEAN CORPUSCULAR HGB CONC 32 g/dl (31.0-36.0); MEAN CORPUSCULAR VOLUME 93 fL (80-96); MONOCYTES # (AUTO) 2.2 /CMM (0.1-1.30); MONOCYTES % (AUTO) 17.1 % (2.0-12.0); NEUTROPHILS % (AUTO) 70.2 % (43.0-81.0); PLATELET COUNT (AUTO) 214 /CMM (150-450); RED BLOOD CELL COUNT(AUTO) 3.49 MIL/uL (4.5-6.0); WHITE BLOOD COUNT (AUTO) 12.8 K/uL (4.3-11.0)
[2020-07-10 20:31] LABS: ALBUMIN 2.5 g/dL (3.4-5.0); BILIRUBIN,DIRECT 0.1 mg/dL (0.0-0.2); BILIRUBIN,TOTAL 0.4 mg/dL (0.2-1.0); CALCIUM, SERUM 8.8 mg/dL (8.5-10.1); CREATININE 6.1 mg/dL (0.6-1.3); POTASSIUM 4.3 mmol/L (3.5-5.1); TOTAL PROTEIN, SERUM 7.5 g/dL (6.4-8.2)
--- NOTE | 2020-07-10 21:15 | NUR ---
TELE 307-9
--- NOTE | 2020-07-10 21:45 | NUR ---
REPORT GIVEN TO LOURDES. PEREZ FOR MARGOT.
[2020-07-10 21:58] VITALS: BP 157/83
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
[2020-07-10 22:00] VITALS: BP 157/83
--- NOTE | 2020-07-10 22:01 | NUR ---
SPOKE WITH PT'S OVER THE PHONE FOR UPDATES REGARDING THE PATIENT
[2020-07-10] MEDS ORDERED: Z GUARD REMEDY 2 OZ OINT TP PRN (22:30)
[2020-07-10] MEDS ORDERED: MAG HYDROX/AL HYDROX/SIMETH 30 ML UDC PO PRN (22:30)
[2020-07-10] MEDS ORDERED: ZOLPIDEM TARTRATE 5 MG TABLET PO PRN (22:30)
[2020-07-10] MEDS ORDERED: ACETAMINOPHEN 325 MG TABLET PO PRN (22:30)
[2020-07-10] MEDS ORDERED: MAGNESIUM HYDROXIDE 30 ML UDC PO PRN (22:30)
[2020-07-10] MEDS ORDERED: HYDROCODONE/APAP 5/325MG TABLET PO PRN (22:30)
[2020-07-10] MEDS: IV D5/0.45 NACL 1,000 ML IV PRN (23:10)
--- NOTE | 2020-07-10 23:28 | NUR ---
PER MD MERCADO TO GIVE MEDICATION VIA IV FOR SEIZURE PATIENT IS MORE ALTERED, DEPAKENE TO GIVE IV AT 250.
[2020-07-10] MEDS ORDERED: VALPROIC ACID 250 MG/5 ML UDC PO SCH (23:30)
[2020-07-10] MEDS ORDERED: VALPROATE 250 MG in IV D5W 100 ML IV SCH (23:30)
[2020-07-11] MEDS ORDERED: VALPROATE 500 MG/5 ML VIAL IV ONE (00:26)
[2020-07-11] MEDS: ONDANSETRON HCL/PF 4 MG/2 ML VIAL IVP PRN ×2 (00:58→08:22)
--- NOTE | 2020-07-11 04:20 | NUR ---
SPOKE TO PHARMACIST PARK REGARDING IV FOR SEIZURE TO BE ADMINISTERED AT 0500 DUE TO UNAVAILABLE PER DIGITAL SALES EXECUTIVE, THE LAST ONE GIVEN PARTIAL DOSE ONLY AND WAS WASTED AND HAVE ADJUSTED TIME FOR PHARMACY.
[2020-07-11 05:19] LABS: BASOPHILS # (AUTO) 0.1 /CMM (0.0-0.2); BASOPHILS % (AUTO) 0.4 % (0.0-2.0); HEMATOCRIT 29 % (39-51); HEMOGLOBIN 9.3 g/dL (13.5-17.5); LYMPHOCYTES # (AUTO) 1.3 /CMM (0.8-4.8); LYMPHOCYTES % (AUTO) 9.8 % (20.0-44.0); MEAN CORPUSCULAR HGB CONC 32 g/dl (31.0-36.0); MEAN CORPUSCULAR VOLUME 92 fL (80-96); MONOCYTES # (AUTO) 2.4 /CMM (0.1-1.30); NEUTROPHILS # (AUTO) 9.5 /CMM (1.8-8.9); NEUTROPHILS % (AUTO) 71.8 % (43.0-81.0); PLATELET COUNT (AUTO) 207 /CMM (150-450); RED BLOOD CELL COUNT(AUTO) 3.15 MIL/uL (4.5-6.0); WHITE BLOOD COUNT (AUTO) 13.2 K/uL (4.3-11.0)
[2020-07-11 05:34] LABS: CALCIUM, SERUM 7.9 mg/dL (8.5-10.1); CREATININE 6.8 mg/dL (0.6-1.3); PHOSPHORUS 3.1 mg/dL (2.5-4.9); POTASSIUM 4.1 mmol/L (3.5-5.1)
[2020-07-11 05:43] LABS: THYROID STIMULATING HORMONE 2.571 uIU/mL (0.358-3.74)
[2020-07-11 06:03] LABS: BAND % (MANUAL) 6 % (0.0-5.0); LYMPHOCYTES % (MANUAL) 10 % (16-48); MONOCYTES % (MANUAL) 10 % (0-11.0); NEUTROPHILS % (MANUAL) 74 (42-76)
--- NOTE | 2020-07-11 06:20 | NUR ---
LEFT MESSAGE WITH DR. WEI FOR MEDICATION RECON OF PATIENT , FAMILY REQUESTED.
--- NOTE | 2020-07-11 06:46 | NUR ---
307-1-MS/RN NOTES PATIENT ALERT X1, ON ROOM AIR, RESPIRATIONS EVEN AND UNLABORED, ATTENDED ALL NEEDS, KEPT SKIN INTACT AND DRY. MONITORED FOR SAFETY, SEIZURE PRECAUTION, IV FLUID INFUSING, BED LOCKED. MONITORED FOR ANY CHANGES, WILL ENDORSE TO AM RN FOR MARGOT.
--- NOTE | 2020-07-11 07:34 | NUR ---
RN NOTES RECEIVED PATIENT IN BED RESTING COMFORTABLY IN MODERATE HIGH BACK REST, A/O X1. NO SIGNS OF DISTRESS NOTED AT THIS TIME. IV FLUIDS ON RFA #20 WITH D5 1/2 NS RUNNING. PATENT AND INTACT. SAFETY MEASURES IN PLACE, BED IN LOWEST LOCKED POSITION WITH SIDE RAILS UP X2. CALL LIGHT WITHIN EASY REACH. WILL CONTINUE TO MONITOR.
[2020-07-11 08:00] VITALS: BP 164/75
[2020-07-11] MEDS: VALPROATE 250 MG in IV D5W 100 ML IV SCH ×3 (08:19→20:01)
[2020-07-11] MEDS: METOCLOPRAMIDE HCL 10 MG TABLET PO SCH ×2 (09:00→17:00)
[2020-07-11] MEDS ORDERED: PANTOPRAZOLE 40 MG VIAL IV SCH (09:00)
[2020-07-11] MEDS ORDERED: ATOR40TA PO (09:48)
[2020-07-11 16:00] VITALS: BP 177/89
[2020-07-11] MEDS: IV D5/0.45 NACL 1,000 ML IV PRN (18:20)
--- NOTE | 2020-07-11 18:50 | NUR ---
RN NOTES PATIENT IN BED RESTING COMFORTABLY IN MODERATE HIGH BACK REST, A/O X1. NO SIGNS OF DISTRESS NOTED THROUGHOUT THE SHIFT. IV FLUIDS ON RFA #20 WITH D5 1/2 NS RUNNING. PATENT AND INTACT. SAFETY MEASURES IN PLACE, BED IN LOWEST LOCKED POSITION WITH SIDE RAILS UP X2. CALL LIGHT WITHIN EASY REACH. WILL ENDORSE TO CUPOLA MELTER NURSE FOR MARGOT.
--- NOTE | 2020-07-11 19:00 | NUR ---
RN medsurg opening notes Received Pt from morning nurse. Pt is resting in bed comfortably. Pt is alert and oriented X1. Respiration is normal. No SOB. No S/S of distress noted. IV sites at L wrist # 20 is clean, intact and infusing well D51/2NS@ 75 ml/hr. LCW portacath is clean and intact. Per am nurse Pt had dialysis with 0 output. Per am nurse EGD consent is signed. Safety precautions is maintained. Bed at low position, brakes locked, side railsupX3 padded and call light is within reach. Will continue to monitor.
[2020-07-11 20:00] VITALS: BP 149/77
[2020-07-11] MEDS: PANTOPRAZOLE 40 MG VIAL IV SCH (20:13)
--- NOTE | 2020-07-11 21:30 | NUR ---
RN medsurtj notes Phbletomist at the bedside and unable to get blood drawn for CBC. Nutrition Services Associate tried multiple times and unable to get blood drawn. Informed hydrodynamics teacher to come again in the morning for routine labs. Charge nurse is aware and informed. Will continue to monitor.
--- NOTE | 2020-07-11 22:30 | NUR ---
ANA medsurg notes Asked Scorer Single Ugo to get blood drawn and able to get blood drawn for CBC. Will continue to monitor.
[2020-07-11 22:53] LABS: BASOPHILS % (AUTO) 0.4 % (0.0-2.0); EOSINOPHILS % (AUTO) 1.5 % (0.0-6.0); HEMATOCRIT 30 % (39-51); HEMOGLOBIN 9.7 g/dL (13.5-17.5); LYMPHOCYTES # (AUTO) 1.4 /CMM (0.8-4.8); LYMPHOCYTES % (AUTO) 14.9 % (20.0-44.0); MEAN CORPUSCULAR HGB CONC 33 g/dl (31.0-36.0); MEAN CORPUSCULAR VOLUME 92 fL (80-96); MONOCYTES # (AUTO) 1.6 /CMM (0.1-1.30); MONOCYTES % (AUTO) 16.7 % (2.0-12.0); NEUTROPHILS # (AUTO) 6.2 /CMM (1.8-8.9); NEUTROPHILS % (AUTO) 66.5 % (43.0-81.0); PLATELET COUNT (AUTO) 207 /CMM (150-450); RED BLOOD CELL COUNT(AUTO) 3.23 MIL/uL (4.5-6.0); WHITE BLOOD COUNT (AUTO) 9.3 K/uL (4.3-11.0)
[2020-07-11 23:19] LABS: EOSINOPHILS % (MANUAL) 2 % (0-4); LYMPHOCYTES % (MANUAL) 11 % (16-48); MONOCYTES % (MANUAL) 13 % (0-11.0); NEUTROPHILS % (MANUAL) 74 (42-76)
--- NOTE | 2020-07-12 02:50 | NUR ---
RN monica notes Spoke and informed to Pt's Leslie Hartmann regarding Pt's procedure for EGD. Pt's informed that Pt's had EGD done three weeks ago at [facility]. Informed to Charge nurse. Charge nurse talked to Pt's . Per charge nurse Pt's refused to have procedure-EGD done. Will follow up in am regarding Pt's concerns.
[2020-07-12] MEDS: VALPROATE 250 MG in IV D5W 100 ML IV SCH ×3 (04:05→20:57)
[2020-07-12 06:21] LABS: BASOPHILS % (AUTO) 0.4 % (0.0-2.0); EOSINOPHILS % (AUTO) 3.1 % (0.0-6.0); HEMATOCRIT 29 % (39-51); HEMOGLOBIN 9.4 g/dL (13.5-17.5); LYMPHOCYTES # (AUTO) 1.8 /CMM (0.8-4.8); LYMPHOCYTES % (AUTO) 18.2 % (20.0-44.0); MEAN CORPUSCULAR HGB CONC 33 g/dl (31.0-36.0); MEAN CORPUSCULAR VOLUME 92 fL (80-96); MONOCYTES # (AUTO) 1.4 /CMM (0.1-1.30); MONOCYTES % (AUTO) 14.8 % (2.0-12.0); NEUTROPHILS # (AUTO) 6.1 /CMM (1.8-8.9); NEUTROPHILS % (AUTO) 63.5 % (43.0-81.0); PLATELET COUNT (AUTO) 200 /CMM (150-450); WHITE BLOOD COUNT (AUTO) 9.6 K/uL (4.3-11.0)
--- NOTE | 2020-07-12 06:42 | NUR ---
RN medsurg closing notes Pt is resting in bed comfortably. Pt is alert and oriented X1. Respiration is normal. No SOB. No S/S of distress noted. VS is stable. Afebrile. Routine meds were given as ordered. IV sites at L wrist # 20 is clean, intact and infusing well D5 1/2NS@ 75 ml/hr. LCW portacath is clean and intact. Kept Pt clean, dry and comfortable. All needs met and attended. Safety precautions is maintained. Bed at low position, brakes locked, side railsupX3 padded and call light is within reach. Will endorse to morning nurse for MARGOT.
--- NOTE | 2020-07-12 07:41 | NUR ---
MS/RN OPENING NOTES RECEIVED PATIENT ON BED. ALERT AND ORIENTED X2. PATIENT DENIES PAIN AT THIS TIME. PATIENT IN NO RESPIRATOR DISTRESS NOTED. WILL CONTINUE TO MONITOR.
--- NOTE | 2020-07-12 08:24 | NUR ---
MS/RN NOTES PATIENT'S DID NOT GIVE CONSENT FOR EGD PROCEDURE MD IS AWARE.
[2020-07-12] MEDS: PANTOPRAZOLE 40 MG VIAL IV SCH ×2 (08:35→21:11)
[2020-07-12] MEDS: METOCLOPRAMIDE HCL 10 MG TABLET PO SCH ×2 (08:36→17:20)
--- NOTE | 2020-07-12 10:01 | NUR ---
MS/RN NOTES PATIENT REQUESTING FOR PALLIATIVE CARE AND WANT TO TALK TO MD, DR. LONG IS AWARE. MARTHA DID NOT GIVE CONSENT FOR EGD DR. LOBO IS AWARE.
[2020-07-12] MEDS: IV D5/0.45 NACL 1,000 ML IV PRN (13:33)
[2020-07-12 16:00] VITALS: BP 115/66
--- NOTE | 2020-07-12 19:24 | NUR ---
MS/RN CLOSING NOTES PATIENT IS ALERT AND ORIENTED X1. PATIENT NO SIGN AND SYMPTOM OF PAIN AT THIS TIME. PATIENT IN NO APPARENT RESPIRATORY DISTRESS NOTED. ALL DUE MEDICATION WAS GIVEN. IV ACCESS AT LEFT WRIST #20G WITH IV ACCESS AT D5 1/2NS 1L AT 75ML/HR ON AND INFUSING WELL. SEEN AND EXAMINED BY MD WITH ORDERS MADE AND CARRIED OUT. ALL DUE MEDICATION WAS ORDERS. SAFETY PRECAUTION IN PLACED. BED IN LOWEST POSITION AND LOCKED. SIDE RAILS UP X 2. WILL ENDORSED TO FLOOR COVERING PRINTER FOR MARGOT.
--- NOTE | 2020-07-12 19:59 | NUR ---
MS/RN OPENING NOTE Patient asleep in bed, A/O x1, bedbound. Breathing even, clear, unlabored on room air. No JVD. Skin warm, pink, dry appropriate for ethnicity. Dry skin and discoloration noted. IV site left wrist 20g running D51/2NS @ 75 ml/hr, no signs of infiltration. Patient is incontinent. Bowel sounds hypoactive in all quadrants. Portacath noted on left chest. SCD pumps in place, no signs of skin breakdown. Bed in low position, wheels locked, side rails up x2, call light within reach.
[2020-07-12 20:00] VITALS: BP 156/72
[2020-07-12 21:39] VITALS: BP 156/72
[2020-07-13] MEDS: IV D5/0.45 NACL 1,000 ML IV PRN (03:43)
[2020-07-13] MEDS: VALPROATE 250 MG in IV D5W 100 ML IV SCH ×2 (04:02→13:00)
--- NOTE | 2020-07-13 07:01 | NUR ---
MS/RN CLOSING NOTE Patient asleep in bed, A/O x1, bedbound. Breathing even, clear, unlabored on room air. Skin warm, pink, dry appropriate for ethnicity. Dry skin and discoloration noted. IV site left wrist 20g running D51/2NS @ 75 ml/hr, no signs of infiltration. Patient is incontinent. Bowel sounds hypoactive in all quadrants. Patient void 1x and 1 bowel movement, brown, soft, and small. Portacath noted on left chest. Bed in low position, wheels locked, side rails up x2, call light within reach.
--- NOTE | 2020-07-13 07:33 | NUR ---
MS/RN OPENING NOTES RECEIVED PATIENT ON BED. ALERT AND ORIENTED X1. PATIENT SIGN AND SYMPTOM OF PAIN AT THIS TIME. PATIENT IN NO RESPIRATORY DISTRESS NOTED. WILL CONTINUE TO MONITOR.
[2020-07-13 08:00] VITALS: BP 182/87
[2020-07-13] MEDS: PANTOPRAZOLE 40 MG VIAL IV SCH ×2 (08:31→21:39)
[2020-07-13] MEDS: METOCLOPRAMIDE HCL 10 MG TABLET PO SCH ×2 (08:31→17:05)
--- NOTE | 2020-07-13 09:45 | NUR ---
WOUND CARE CONSULT: LIMITED ASSESSMENT DUE TO PT ON DIALYSIS AT THIS TIME. PT PRESENTS WITH MULTIPLE DRY ABRASIONS, SCARS AND DISCOLORATIONS TO FEET AND HEELS, PRESENT ON ADMISSION. NO TENDERNESS OR ERYTHEMA NOTED. RECOMMENDATIONS MADE FOR SKIN PROTECTION. DISCUSSED WITH NURSING STAFF. WILL SEE PRN. BROWN IN AGREEMENT WITH PLAN OF CARE. GORDON ISOFLEX LOW AIRLOSS BED TO BE PLACED.
[2020-07-13] MEDS: hydrALAZINE HCL 25 MG TABLET PO SCH ×2 (12:50→21:52)
[2020-07-13 13:36] LABS: BASOPHILS % (AUTO) 0.7 % (0.0-2.0); EOSINOPHILS % (AUTO) 5.4 % (0.0-6.0); HEMATOCRIT 33 % (39-51); HEMOGLOBIN 10.8 g/dL (13.5-17.5); LYMPHOCYTES # (AUTO) 1.2 /CMM (0.8-4.8); MEAN CORPUSCULAR HGB CONC 33 g/dl (31.0-36.0); MEAN CORPUSCULAR VOLUME 91 fL (80-96); NEUTROPHILS # (AUTO) 3.9 /CMM (1.8-8.9); NEUTROPHILS % (AUTO) 59.9 % (43.0-81.0); PLATELET COUNT (AUTO) 223 /CMM (150-450); RED BLOOD CELL COUNT(AUTO) 3.63 MIL/uL (4.5-6.0); WHITE BLOOD COUNT (AUTO) 6.6 K/uL (4.3-11.0)
[2020-07-13 14:06] LABS: ALBUMIN 2.3 g/dL (3.4-5.0); BILIRUBIN,TOTAL 0.2 mg/dL (0.2-1.0); CALCIUM, SERUM 8.2 mg/dL (8.5-10.1); CREATININE 4.8 mg/dL (0.6-1.3); MAGNESIUM 1.9 mg/dL (1.8-2.4); PHOSPHORUS 2.4 mg/dL (2.5-4.9); POTASSIUM 3.5 mmol/L (3.5-5.1); TOTAL PROTEIN, SERUM 7.2 g/dL (6.4-8.2)
--- NOTE | 2020-07-13 15:43 | NUR ---
MS/RN NOTES IV LINE WAS INFILTRATED. INITIATED MULTIPLE TIMES IV INSERTION, MD IS AWARE. NO NEW ORDER AT THIS TIME.
[2020-07-13 16:00] VITALS: BP 150/88
[2020-07-13] MEDS ORDERED: K PHOS NEUTRAL 250 MG TABLET PO ONE (16:00)
--- NOTE | 2020-07-13 16:48 | NUR ---
MS/RN BETSEY KEENE) ORDER DEPACON 250MG 1TAB P.O. NOTED AND CARRIED OUT. Addendum: 07/13/20 at 1652 by KWAKU BOYER RN ERROR
--- NOTE | 2020-07-13 16:51 | NUR ---
MS/RN NOTES ERIKA (VENICE) ORDER DEPACON (VALPROATE) 250MG 1TAB P.O. NOTED AND CARRIED OUT.
[2020-07-13] MEDS: LamoTRIgine 25 MG TABLET PO SCH (17:05)
--- NOTE | 2020-07-13 19:35 | NUR ---
MSRN FULLY AWAKE, RESTING QUIETLY. OCC HICCUPS NOTED. NPO EXCEPT MEDS. NO NEEDS MADE. CONTINUED. KEPT COMFORTABLE.
--- NOTE | 2020-07-13 19:37 | NUR ---
MS/RN CLOSING NOTES PATIENT IS ALERT AND ORIENTED X1. PATIENT NO SIGN AND SYMPTOM OF PAIN AT THIS TIME. PATIENT IN NO APPARENT RESPIRATORY DISTRESS NOTED. ALL DUE MEDICATION WAS GIVEN. IV ACCESS AT RIGHT AC #22G PATENT AND INTACT. SEEN AND EXAMINED BY MD WITH ORDERS MADE AND CARRIED OUT. ALL DUE MEDICATION WAS ORDERS. SAFETY PRECAUTION IN PLACED. BED IN LOWEST POSITION AND LOCKED. SIDE RAILS UP X 2. WILL ENDORSED TO EARLY CHILDHOOD SERVICES COORDINATOR FOR MARGOT.
[2020-07-13 20:30] VITALS: BP 98/78
[2020-07-13] MEDS: VALPROIC ACID 250 MG/5 ML UDC PO SCH (21:39)
[2020-07-13 21:45] VITALS: BP 154/84
--- NOTE | 2020-07-13 21:45 | NUR ---
MSRN RECHECKED V/S BP 154/84. APRESOLINE ADMINISTERED . TOOK AWHILE TO TAKE MEDS WITH SMALL AMOUNT OF WATER. KEPT DRY CLEAN AND COMFORTABLE.CLOSELY WATCHED.
[2020-07-14 06:00] VITALS: BP 139/55
--- NOTE | 2020-07-14 06:00 | NUR ---
MSRN BP 139/55 HEART RATE OF 77. SPITS HALF OF CRUSHED APRESOLINE WITH SMALL AMOUNT OF WATER. AM CARE DONE. HAD BM2X
[2020-07-14] MEDS: hydrALAZINE HCL 25 MG TABLET PO SCH ×3 (06:05→20:59)
[2020-07-14 06:48] LABS: CALCIUM, SERUM 8.4 mg/dL (8.5-10.1); CREATININE 5.5 mg/dL (0.6-1.3); PHOSPHORUS 3.4 mg/dL (2.5-4.9); POTASSIUM 3.5 mmol/L (3.5-5.1)
--- NOTE | 2020-07-14 07:25 | NUR ---
MSRN ENDORSED TO INCOMING RN FOR CONTINUITY OF CARE.
[2020-07-14 08:00] VITALS: BP 156/91
--- NOTE | 2020-07-14 08:00 | NUR ---
RN NOTES RECEIVED PATIENT IN THE BED A/O X1, ROOM AIR, NO ACUTE RESPIRATORY DISTRESS, V/S STABLE, ADMINISTERED SCHEDULED MEDICATION CRUSHED. PATIENT NPO EXCEPT MEDS, TOTAL CARE, INCONTINENT. DVT PUMP ON, ASSIST TURN AND REPOSTION Q 2 HR, IV ACCESS ON RIGHT AC AREA INTACT. CALL LIGHT WITHIN TO REACH, WILL CONTINUE MONITORING.
[2020-07-14] MEDS ORDERED: LamoTRIgine 25 MG TABLET PO SCH (09:00)
--- NOTE | 2020-07-14 09:17 | NUR ---
rn notes patient merchandise pickup/receiving associate for ct of head wo contrast at this time.
--- NOTE | 2020-07-14 09:38 | NUR ---
RN NOTES PATIENT BACK FROM CT, STABLE, WAS REFUSED PAIN AT THIS TIME, ADMINISTERED SCHEDULED MEDICATION CRUSHED.
[2020-07-14] MEDS: PANTOPRAZOLE 40 MG VIAL IV SCH ×2 (09:43→21:27)
[2020-07-14] MEDS: VALPROIC ACID 250 MG/5 ML UDC PO SCH ×3 (09:43→20:58)
[2020-07-14] MEDS: METOCLOPRAMIDE HCL 10 MG TABLET PO SCH ×2 (09:44→17:19)
[2020-07-14] MEDS: LamoTRIgine 25 MG TABLET PO SCH ×2 (09:45→17:19)
--- NOTE | 2020-07-14 13:38 | NUR ---
RN NOTES ADMINISTERED SCHEDULED MEDICATION CRUSHED AND MIXED WITH APPLE SAUCE,, V/S TAKEN BP 162/81, P-85, ALSO ADMINISTERED TYLENOL 650 MG PO PRN FOR GENERALIZED PAIN 5/10 PER PATIENT REQUEST. CONTINUED MONITORING.
[2020-07-14 16:00] VITALS: BP 138/78
--- NOTE | 2020-07-14 16:51 | NUR ---
RN NOTES GET DIET RENAL STANDARD PUREED PER HOSPITALIST.
--- NOTE | 2020-07-14 18:30 | NUR ---
RN NOTES PATIENT TOLERATED DINNER WELL WITH ASSIST, , ADMINISTERED SCHEDULED MEDICATION, ASSIST TURN AND REPOSTION Q 2HR, CALL LIGHT WITHIN TO REACH. ENDORSED ONCOMING NURSE FOLLOW MARGOT.
[2020-07-14 20:00] VITALS: BP 131/69
--- NOTE | 2020-07-14 20:00 | NUR ---
ms lesly initial notes received report from am nurse and seen pt in bed awake and alert to his name watching tv at this time. no signs of any acute distress noted. skin warm and dry to touch. heplock on his right AC patent and intact. educate him to used the call light system. kept him warm and comfortable at all times. will continue monitoring.
[2020-07-15] MEDS: hydrALAZINE HCL 25 MG TABLET PO SCH ×2 (05:15→13:51)
--- NOTE | 2020-07-15 07:22 | NUR ---
ms assembly operator closing notes pt awake and alert watching TV at thsi time. no signs of any acute distress or any discomfort noted. Stable throughout the night and slept well. all due meds given and all needs met. morning care done . kept him warn and comfortable at all times will continue monitoring. Endorse to am nurse [place] for continuity of care.
--- NOTE | 2020-07-15 07:30 | NUR ---
RN Opening note Received patient in bed, AO x 1-2, slurred speech, able to responds all stimuli, does no c/d pain or discomfort. Respiratory even and unlabored on room air, no distress observed. Skin is warm to touch, keep clean/dry, intact IV site and Perma cath on LCW. Kept bed in locked with elevated HOB for ensure airway and aspiration precaution. Call light within reach, will continue to monitor.
[2020-07-15 08:00] VITALS: BP 155/84
[2020-07-15] MEDS: LamoTRIgine 25 MG TABLET PO SCH (08:07)
[2020-07-15] MEDS: VALPROIC ACID 250 MG/5 ML UDC PO SCH ×2 (08:07→13:37)
[2020-07-15] MEDS: METOCLOPRAMIDE HCL 10 MG TABLET PO SCH (08:07)
[2020-07-15] MEDS: PANTOPRAZOLE 40 MG VIAL IV SCH (08:07)
[2020-07-15] MEDS ORDERED: VALP250S22 PO (12:05)
[2020-07-15] MEDS ORDERED: LAMO25TA5 PO ×2 (12:05)
--- NOTE | 2020-07-15 15:30 | NUR ---
Given discharge instruction to /Leslie over the phone include prescribed medication and side effects, and /Leslie verbally understanding above.
[2020-07-15 16:00] VITALS: BP 117/88
--- NOTE | 2020-07-15 16:00 | NUR ---
Patient refused take wound pictures.
--- NOTE | 2020-07-15 16:20 | NUR ---
3EMTs picked up patient to home, given report. Patient in stable condition.
[2020-07-15] MEDS ORDERED: PANTOPRAZOLE 40 MG TABLET.DR PO SCH (17:00)
== END 2020-07-15 16:47 | disposition home health service (06) | DRG 368 ==
LOC: ER 18:35 → MED 21:26
PROVIDERS: ADMIT Student in an Organized Health Care Education/Training Program; ATTEND Internal Medicine
PROC: 5A1D70Z Performance of Urinary Filtration, Intermittent, Less than 6 Hours Per Day (ICD-10-PCS; principal; 2020-07-11)
DX: K22.6 Gastro-esophageal laceration-hemorrhage syndrome (principal); E43 Unspecified severe protein-calorie malnutrition; N18.6 End stage renal disease; G92 Toxic encephalopathy; I12.0 Hypertensive chronic kidney disease with stage 5 chronic kidney disease or end stage renal disease; E78.5 Hyperlipidemia, unspecified; G40.909 Epilepsy, unspecified, not intractable, without status epilepticus; I25.10 Atherosclerotic heart disease of native coronary artery without angina pectoris; E11.22 Type 2 diabetes mellitus with diabetic chronic kidney disease; Z86.73 Personal history of transient ischemic attack (TIA), and cerebral infarction without residual deficits; Z88.8 Allergy status to other drugs, medicaments and biological substances; Z79.82 Long term (current) use of aspirin; Z79.4 Long term (current) use of insulin; Z79.899 Other long term (current) drug therapy; D72.829 Elevated white blood cell count, unspecified; D64.9 Anemia, unspecified; Z95.5 Presence of coronary angioplasty implant and graft; Z99.2 Dependence on renal dialysis; Z87.891 Personal history of nicotine dependence; Z87.19 Personal history of other diseases of the digestive system; N25.0 Renal osteodystrophy; F03.90 Unspecified dementia, unspecified severity, without behavioral disturbance, psychotic disturbance, mood disturbance, and anxiety; F41.9 Anxiety disorder, unspecified; F32.9 Major depressive disorder, single episode, unspecified; I67.2 Cerebral atherosclerosis; K74.60 Unspecified cirrhosis of liver; F29 Unspecified psychosis not due to a substance or known physiological condition; I25.2 Old myocardial infarction
CPT/HCPCS: 36415; 70450-TC; 71045-TC; 80048-TC; 80053-TC; 80061-TC; 80076-TC; 80164-TC; 83605-TC; 83735-TC; 84100-TC; 84443-TC; 85025-TC; 85730-TC; 86850-TC; 87081-TC; 90935-TC; 95819-TC; C9113; C9803-CS; G0378; J2405; J2765; J3490; J7060; J8597